=== PATIENT | male | born 1950 | race Caucasian/White ===

== ENCOUNTER 2017-08-09 12:44 | Observation (INO) | payer MEDICARE, MEDICAID ==
[~2017-08-09] VITALS: Ht 185.4 cm; Wt 98.9 kg
[2017-08-09] VITALS (7 sets, daily range): BP systolic 114–179; BP diastolic 57–88; PULSE 66–82; TEMP 98.2–98.8
[2017-08-09] MEDS ORDERED: PRILOTC PO (12:57)
[2017-08-09] MEDS ORDERED: LOTENSIN 1010 MG/TAB PO (12:57)
[2017-08-09] MEDS ORDERED: ELIQUIS 5MG PO (12:57)
[2017-08-09] MEDS ORDERED: ZOCOR 40MG40 MG PO (12:58)
[2017-08-09] MEDS ORDERED: LOPRESSOR 550 MG/TAB PO (12:59)
[2017-08-09 13:05] LABS: BASO # 0.1 (0.0-0.2); BASO % 1.2 % (0.0-2.0); EOS # 0.1 (0.0-0.7); EOS % 1.5 % (0-4.0); GRAN # 4.2 (1.4-6.5); GRAN % 64.6 % (42.2-75.2); HEMATOCRIT 38.4 % (42.0-52.0); HEMOGLOBIN 13.1 g/dl (13.5-18.0); LYMPH # 1.5 (1.2-3.4); LYMPH % 23.6 % (20.0-51.0); MEAN CELL VOLUME 90 fl (80.0-100.0); MEAN CORPUSCULAR HEMOGLOBIN 31 pg (27.0-31.0); MEAN CORPUSCULAR HGB CONC 34 g/dl (33.0-37.0); MEAN PLATELET VOLUME 9.9 fl (7.4-10.4); MONO # 0.6 (0.1-0.6); MONO % 8.8 % (1.7-9.3); PLATELET COUNT 209 K/mm3 (130-400); RED BLOOD COUNT 4.25 M/mm3 (4.20-5.60); REDCELL DISTRIBUTION WIDTH-CV 12.6 % (11.5-14.5)
[2017-08-09 13:11] LABS: POTASSIUM 4.5 mmol/L (3.4-5.0)
[2017-08-09 13:14] LABS: ALANINE AMINOTRANSFERASE 32 U/L (21-72); ALKALINE PHOSPHATASE 137 U/L (50-136); ANION GAP 6 mmol/L (7-16); AST,SGOT 25 U/L (15-37); BILIRUBIN,TOTAL 0.5 mg/dL (0.0-1.0); BLOOD UREA NITROGEN 14 mg/dL (9-20); CALCIUM 11.7 mg/dL (8.4-10.2); CARBON DIOXIDE 24 mmol/L (22-30); CHLORIDE 109 mmol/L (98-107); CREATININE, serum 0.84 mg/dL (0.66-1.25); GLUCOSE 98 mg/dL (74-106); LIPASE 151 U/L (23-300); SODIUM 139 mmol/L (137-145); TOTAL PROTEIN 6.8 gm/dL (6.4-8.2)
[2017-08-09 13:27] LABS: TROPONIN-I < 0.012 ng/mL (0.000-0.034)
[2017-08-10] VITALS (12 sets, daily range): BP systolic 120–166; BP diastolic 55–90; PULSE 60–85; TEMP 98.1–98.8
[2017-08-10 07:16] LABS: CHOLESTEROL RISK RATIO 4.3
[2017-08-11] VITALS (12 sets, daily range): BP systolic 103–142; BP diastolic 45–93; PULSE 58–87; TEMP 97.8–98.4
[2017-08-11] MEDS ORDERED: NITROSTAT0.4 MG/TAB SL (15:26)
== END 2017-08-11 16:53 | disposition home or self-care (01) ==
LOC: COL.ER 12:44 → MEDICAL 14:15
PROVIDERS: Emergency Medicine; Physician Assistant
DX: R07.9 Chest pain, unspecified (principal); E78.5 Hyperlipidemia, unspecified; I10 Essential (primary) hypertension; I48.91 Unspecified atrial fibrillation; I08.3 Combined rheumatic disorders of mitral, aortic and tricuspid valves; Z79.01 Long term (current) use of anticoagulants; Z95.0 Presence of cardiac pacemaker; Z82.3 Family history of stroke
CPT/HCPCS: A9502; G0008; G0378; J0330; J0360; J1644; J2704; J2785; J7030

== ENCOUNTER 2017-08-15 06:25 | Day surgery (SDC) | payer MEDICARE, OTHER, MEDICAID ==
[2017-08-15] VITALS (9 sets, daily range): BP systolic 125–169; BP diastolic 81–105; PULSE 63–72; TEMP 98.2
[~2017-08-15] VITALS: Ht 185.4 cm; Wt 98.6 kg
[~2017-08-15 06:25] MED LIST: ELIQUIS 5MG PO; LOPRESSOR 550 MG/TAB PO; LOTENSIN 1010 MG/TAB PO; NITROSTAT0.4 MG/TAB SL; PRILOTC PO; ZOCOR 40MG40 MG PO
[2017-08-15 07:00] LABS: HEMATOCRIT 38.5 % (42.0-52.0); MEAN CELL VOLUME 91 fl (80.0-100.0); MEAN CORPUSCULAR HEMOGLOBIN 31 pg (27.0-31.0); MEAN CORPUSCULAR HGB CONC 34 g/dl (33.0-37.0); PLATELET COUNT 195 K/mm3 (130-400); RED BLOOD COUNT 4.25 M/mm3 (4.20-5.60); REDCELL DISTRIBUTION WIDTH-CV 12.6 % (11.5-14.5)
[2017-08-15 07:02] LABS: PROTHROMBIN TIME 11.7 SECONDS (9.7-12.8)
[2017-08-15 07:23] LABS: CALCIUM 10.8 mg/dL (8.4-10.2); CREATININE, serum 0.9 mg/dL (0.66-1.25); POTASSIUM 4.3 mmol/L (3.4-5.0)
[2017-08-15] MEDS ORDERED: TENORMIN 5050 MG/TAB PO (09:55)
[2017-08-15] MEDS ORDERED: ELIQUIS 5MG PO (09:56)
== END 2017-08-15 13:30 | disposition home or self-care (01) ==
LOC: COL.CAR 06:25
PROVIDERS: Internal Medicine Cardiovascular Disease
DX: I25.10 Atherosclerotic heart disease of native coronary artery without angina pectoris (principal); I11.0 Hypertensive heart disease with heart failure; I50.20 Unspecified systolic (congestive) heart failure; E66.9 Obesity, unspecified; K21.9 Gastro-esophageal reflux disease without esophagitis; I27.20 Pulmonary hypertension, unspecified; Z95.0 Presence of cardiac pacemaker; I49.5 Sick sinus syndrome; Z79.01 Long term (current) use of anticoagulants; I48.1 Persistent atrial fibrillation; Z82.3 Family history of stroke
CPT/HCPCS: J1644; J2250; J3010; Q9967

== ENCOUNTER 2018-04-10 11:27 | Inpatient (IN) | payer MEDICARE, OTHER, MEDICAID ==
[~2018-04-10] VITALS: Ht 185.4 cm; Wt 89.1 kg
[~2018-04-10 11:27] MED LIST changes: +TENORMIN 5050 MG/TAB PO
[2018-04-11] MEDS ORDERED: ABSORBASE TOP (10:28)
[2018-04-11] MEDS ORDERED: NORVASC 5MG5 MG/TAB PO (10:29)
[2018-04-11] MEDS ORDERED: ASPIRIN 81M81 MG/TA2 PO (10:31)
[2018-04-11] MEDS ORDERED: LIPITOR20 MG PO (10:32)
[2018-04-11] MEDS ORDERED: COLACE 100100 MG/CAP PO (10:34)
[2018-04-11] MEDS ORDERED: SENSIPAR30 MG PO (10:34)
[2018-04-11] MEDS ORDERED: LEXAPRO20 MG PO (10:36)
[2018-04-11] MEDS ORDERED: PEPCID 20MG TAB20 MG PO (10:47)
[2018-04-11] MEDS ORDERED: LOPID 600M600 MG/TAB PO (10:48)
[2018-04-11] MEDS ORDERED: HEPARIN SOD5000 U/ML SQ (10:49)
[2018-04-11] MEDS ORDERED: PROBIOTIC GOLD1 EACH PO (10:58)
[2018-04-11] MEDS ORDERED: ATIVAN 0.50.5 MG/TAB PO (11:19)
[2018-04-11] MEDS ORDERED: MELAT3MGTAB (11:20)
[2018-04-11] MEDS ORDERED: REGLAN 5MG T5 MG/TAB PO (11:20)
[2018-04-11 16:20] VITALS: BP 137/91; PULSE 76; TEMP 97.9
[2018-04-11 17:39] VITALS: BP 123/64; PULSE 92; TEMP 98.1
[2018-04-12 05:21] VITALS: BP 128/85; PULSE 69; TEMP 98.6
[2018-04-12 07:46] LABS: BASO # 0.1 (0.0-0.2); BASO % 0.7 % (0.0-2.0); EOS # 0.1 (0.0-0.7); EOS % 1.5 % (0-4.0); GRAN % 70.1 % (42.2-75.2); LYMPH # 1.3 (1.2-3.4); LYMPH % 14.8 % (20.0-51.0); MEAN CELL VOLUME 88 fl (80.0-100.0); MEAN CORPUSCULAR HGB CONC 31 g/dl (33.0-37.0); MEAN PLATELET VOLUME 11.3 fl (7.4-10.4); MONO # 1.1 (0.1-0.6); MONO % 12.3 % (1.7-9.3); PLATELET COUNT 202 K/mm3 (130-400); RED BLOOD COUNT 3.51 M/mm3 (4.20-5.60); REDCELL DISTRIBUTION WIDTH-CV 15.8 % (11.5-14.5)
[2018-04-12 07:47] LABS: HEMATOCRIT 30.9 % (42.0-52.0); HEMOGLOBIN 9.5 g/dl (13.5-18.0); MEAN CORPUSCULAR HEMOGLOBIN 27 pg (27.0-31.0)
[2018-04-12 07:54] LABS: ALBUMIN 3.6 gm/dL (3.5-5.0); BILIRUBIN,TOTAL 0.4 mg/dL (0.0-1.0); CALCIUM 11.9 mg/dL (8.4-10.2); CREATININE, serum 1.56 mg/dL (0.66-1.25); POTASSIUM 4.9 mmol/L (3.4-5.0); TOTAL PROTEIN 6.8 gm/dL (6.4-8.2)
[2018-04-12 17:42] VITALS: BP 127/62; PULSE 82; TEMP 97.5
[2018-04-13 02:55] VITALS: BP 135/84; PULSE 79; TEMP 98.2
[2018-04-13 17:56] VITALS: BP 110/75; PULSE 76; TEMP 98.1
[2018-04-14 03:58] VITALS: BP 133/78; PULSE 73; TEMP 97.8
[2018-04-14 10:38] LABS: BASO # 0.1 (0.0-0.2); BASO % 1.4 % (0.0-2.0); EOS # 0.2 (0.0-0.7); EOS % 3.2 % (0-4.0); GRAN # 3.1 (1.4-6.5); GRAN % 62.6 % (42.2-75.2); LYMPH # 0.9 (1.2-3.4); LYMPH % 18.6 % (20.0-51.0); MEAN CELL VOLUME 86 fl (80.0-100.0); MEAN CORPUSCULAR HGB CONC 32 g/dl (33.0-37.0); MEAN PLATELET VOLUME 10.8 fl (7.4-10.4); MONO # 0.7 (0.1-0.6); MONO % 13.8 % (1.7-9.3); PLATELET COUNT 198 K/mm3 (130-400); RED BLOOD COUNT 3.17 M/mm3 (4.20-5.60); REDCELL DISTRIBUTION WIDTH-CV 15.9 % (11.5-14.5)
[2018-04-14 10:40] LABS: HEMATOCRIT 27.1 % (42.0-52.0); HEMOGLOBIN 8.7 g/dl (13.5-18.0); MEAN CORPUSCULAR HEMOGLOBIN 27 pg (27.0-31.0)
[2018-04-14 10:51] LABS: C-REACTIVE PROTEIN 4.9 mg/dL (0.0-0.9); CALCIUM 10.7 mg/dL (8.4-10.2); CREATININE, serum 1.45 mg/dL (0.66-1.25); MAGNESIUM 1.8 mg/dL (1.6-2.3); POTASSIUM 5.1 mmol/L (3.4-5.0)
[2018-04-14 17:01] VITALS: BP 146/82; PULSE 72; TEMP 97.7
[2018-04-15 04:35] VITALS: BP 132/77; PULSE 73; TEMP 98.2
[2018-04-15 18:03] VITALS: BP 144/82; PULSE 74; TEMP 98.6
[2018-04-16 05:02] VITALS: BP 153/90; PULSE 73; TEMP 98.3
[2018-04-16 17:40] VITALS: BP 140/80; PULSE 74; TEMP 97.8
[2018-04-17 05:33] VITALS: BP 149/85; PULSE 67; TEMP 98.3
[2018-04-17 08:03] LABS: MEAN CELL VOLUME 88 fl (80.0-100.0); MEAN CORPUSCULAR HGB CONC 31 g/dl (33.0-37.0); MEAN PLATELET VOLUME 10.6 fl (7.4-10.4); PLATELET COUNT 213 K/mm3 (130-400); RED BLOOD COUNT 3.14 M/mm3 (4.20-5.60); REDCELL DISTRIBUTION WIDTH-CV 15.6 % (11.5-14.5)
[2018-04-17 08:05] LABS: HEMATOCRIT 27.5 % (42.0-52.0); HEMOGLOBIN 8.5 g/dl (13.5-18.0); MEAN CORPUSCULAR HEMOGLOBIN 27 pg (27.0-31.0)
[2018-04-17 08:14] LABS: CALCIUM 11.1 mg/dL (8.4-10.2); CREATININE, serum 1.23 mg/dL (0.66-1.25); MAGNESIUM 1.8 mg/dL (1.6-2.3); POTASSIUM 5.1 mmol/L (3.4-5.0)
[2018-04-17 08:41] LABS: BASOPHIL 4 % (0-2); EOSINOPHIL 4 % (0-4); LYMPHOCYTE 29 % (20.0-51.0); NEUTROPHILS 61 % (42.0-75.2); PLATELET ESTIMATE NORMAL (NORMAL)
[2018-04-17 08:42] LABS: HYPOCHROMIA 1+
[2018-04-17 18:55] VITALS: BP 140/85; PULSE 72; TEMP 98
[2018-04-18 06:24] VITALS: BP 147/84; PULSE 65; TEMP 97.6
[2018-04-18 18:09] VITALS: BP 135/79; PULSE 79; TEMP 97.6
[2018-04-19 03:00] VITALS: BP 135/91; BP 142/51; PULSE 67; PULSE 86; TEMP 97.5; TEMP 97.9
[2018-04-19 07:44] LABS: BASO # 0.1 (0.0-0.2); BASO % 2.3 % (0.0-2.0); EOS # 0.3 (0.0-0.7); EOS % 6.7 % (0-4.0); GRAN # 1.8 (1.4-6.5); GRAN % 46.5 % (42.2-75.2); LYMPH # 1.3 (1.2-3.4); LYMPH % 33.2 % (20.0-51.0); MEAN CELL VOLUME 88 fl (80.0-100.0); MEAN CORPUSCULAR HGB CONC 31 g/dl (33.0-37.0); MEAN PLATELET VOLUME 9.9 fl (7.4-10.4); MONO # 0.4 (0.1-0.6); MONO % 10.8 % (1.7-9.3); PLATELET COUNT 207 K/mm3 (130-400); RED BLOOD COUNT 3.44 M/mm3 (4.20-5.60); REDCELL DISTRIBUTION WIDTH-CV 15.5 % (11.5-14.5)
[2018-04-19 07:45] LABS: HEMATOCRIT 30.1 % (42.0-52.0); HEMOGLOBIN 9.2 g/dl (13.5-18.0); MEAN CORPUSCULAR HEMOGLOBIN 27 pg (27.0-31.0)
[2018-04-19 07:56] LABS: ALBUMIN 3.6 gm/dL (3.5-5.0); BILIRUBIN,TOTAL 0.2 mg/dL (0.0-1.0); C-REACTIVE PROTEIN 0.9 mg/dL (0.0-0.9); CALCIUM 11.3 mg/dL (8.4-10.2); CREATININE, serum 1.19 mg/dL (0.66-1.25); MAGNESIUM 1.7 mg/dL (1.6-2.3); POTASSIUM 4.9 mmol/L (3.4-5.0); TOTAL PROTEIN 6.6 gm/dL (6.4-8.2)
[2018-04-19 17:53] VITALS: BP 121/74; PULSE 80; TEMP 97.5
[2018-04-20 04:35] VITALS: BP 136/88; PULSE 70; TEMP 98
[2018-04-20 18:03] VITALS: BP 131/64; PULSE 88; TEMP 97.7
[2018-04-21 03:41] VITALS: BP 128/78; PULSE 68; TEMP 98.2
[2018-04-21 17:45] VITALS: BP 138/82; PULSE 88; TEMP 97.3
[2018-04-22 04:22] VITALS: BP 152/91; PULSE 70; TEMP 98.6
[2018-04-22 15:09] VITALS: BP 122/73; PULSE 71; TEMP 98.4
[2018-04-23 04:52] VITALS: BP 140/70; PULSE 67; TEMP 98.6
[2018-04-23 15:23] VITALS: BP 126/77; PULSE 74; TEMP 98.2
[2018-04-24 05:56] VITALS: BP 135/81; PULSE 66; TEMP 98
[2018-04-24 06:03] LABS: CALCIUM 10.8 mg/dL (8.4-10.2); CREATININE, serum 1.08 mg/dL (0.66-1.25); MAGNESIUM 1.7 mg/dL (1.6-2.3)
[2018-04-24 18:50] VITALS: BP 124/81; PULSE 81; TEMP 97.6
[2018-04-25 06:59] VITALS: BP 152/95; PULSE 69; TEMP 98.6
[2018-04-25 17:21] VITALS: BP 116/69; PULSE 76; TEMP 98.5
[2018-04-26 04:29] VITALS: BP 134/86; PULSE 73; TEMP 97.9
[2018-04-26 06:18] LABS: BASO # 0.1 (0.0-0.2); BASO % 2.1 % (0.0-2.0); EOS # 0.2 (0.0-0.7); EOS % 4.9 % (0-4.0); GRAN # 2.1 (1.4-6.5); GRAN % 48.1 % (42.2-75.2); LYMPH # 1.4 (1.2-3.4); LYMPH % 32.9 % (20.0-51.0); MEAN CELL VOLUME 87 fl (80.0-100.0); MEAN CORPUSCULAR HGB CONC 31 g/dl (33.0-37.0); MEAN PLATELET VOLUME 10.2 fl (7.4-10.4); MONO # 0.5 (0.1-0.6); MONO % 11.5 % (1.7-9.3); PLATELET COUNT 178 K/mm3 (130-400); RED BLOOD COUNT 3.45 M/mm3 (4.20-5.60); REDCELL DISTRIBUTION WIDTH-CV 15.9 % (11.5-14.5)
[2018-04-26 06:23] LABS: ALBUMIN 3.5 gm/dL (3.5-5.0); BILIRUBIN,TOTAL 0.3 mg/dL (0.0-1.0); CALCIUM 11.2 mg/dL (8.4-10.2); CREATININE, serum 1.21 mg/dL (0.66-1.25); POTASSIUM 5.2 mmol/L (3.4-5.0); TOTAL PROTEIN 6.5 gm/dL (6.4-8.2)
[2018-04-26 06:24] LABS: HEMATOCRIT 29.9 % (42.0-52.0); HEMOGLOBIN 9.2 g/dl (13.5-18.0); MEAN CORPUSCULAR HEMOGLOBIN 27 pg (27.0-31.0)
[2018-04-26 18:10] VITALS: BP 119/71; PULSE 85; TEMP 98.1
[2018-04-27 03:15] VITALS: BP 144/87; PULSE 69; TEMP 97.5
[2018-04-27 16:16] VITALS: BP 115/74; PULSE 72; TEMP 98.3
[2018-04-28 03:52] VITALS: BP 163/89; PULSE 70; TEMP 98.2
[2018-04-28 16:31] VITALS: BP 120/78; PULSE 81; TEMP 98.6
[2018-04-29 05:05] VITALS: BP 141/89; PULSE 63; TEMP 97.6
[2018-04-29 16:10] VITALS: BP 114/71; PULSE 68; TEMP 97.7
[2018-04-30 04:14] VITALS: BP 103/69; PULSE 61; TEMP 98.5
[2018-04-30 17:01] VITALS: BP 112/77; PULSE 64; TEMP 98.1
[2018-05-01 06:30] VITALS: BP 115/69; PULSE 64; TEMP 97.7
[2018-05-01 06:40] LABS: BASO # 0.1 (0.0-0.2); BASO % 1.8 % (0.0-2.0); EOS # 0.2 (0.0-0.7); EOS % 4.4 % (0-4.0); GRAN # 2.5 (1.4-6.5); GRAN % 55.1 % (42.2-75.2); LYMPH # 1.2 (1.2-3.4); LYMPH % 26.9 % (20.0-51.0); MEAN CELL VOLUME 88 fl (80.0-100.0); MEAN CORPUSCULAR HGB CONC 31 g/dl (33.0-37.0); MEAN PLATELET VOLUME 10.9 fl (7.4-10.4); MONO # 0.5 (0.1-0.6); MONO % 11.1 % (1.7-9.3); PLATELET COUNT 159 K/mm3 (130-400); RED BLOOD COUNT 3.23 M/mm3 (4.20-5.60); REDCELL DISTRIBUTION WIDTH-CV 15.9 % (11.5-14.5)
[2018-05-01 06:43] LABS: HEMATOCRIT 28.3 % (42.0-52.0); HEMOGLOBIN 8.9 g/dl (13.5-18.0); MEAN CORPUSCULAR HEMOGLOBIN 28 pg (27.0-31.0)
[2018-05-01 06:55] LABS: CALCIUM 10.9 mg/dL (8.4-10.2); CREATININE, serum 1.13 mg/dL (0.66-1.25); MAGNESIUM 1.9 mg/dL (1.6-2.3); POTASSIUM 5.1 mmol/L (3.4-5.0)
[2018-05-01 17:49] VITALS: BP 132/65; PULSE 87; TEMP 97.8
[2018-05-02 06:23] VITALS: BP 113/76; PULSE 63; TEMP 97.6
[2018-05-02 18:00] VITALS: BP 103/67; PULSE 70; TEMP 98.1
[2018-05-03 05:46] VITALS: BP 113/74; PULSE 62; TEMP 98.1
[2018-05-03 06:31] LABS: BASO # 0.1 (0.0-0.2); BASO % 2.3 % (0.0-2.0); EOS # 0.2 (0.0-0.7); EOS % 5.7 % (0-4.0); GRAN # 1.6 (1.4-6.5); GRAN % 44.6 % (42.2-75.2); HEMATOCRIT 28.8 % (42.0-52.0); LYMPH # 1.2 (1.2-3.4); LYMPH % 35.6 % (20.0-51.0); MEAN CELL VOLUME 88 fl (80.0-100.0); MEAN CORPUSCULAR HEMOGLOBIN 27 pg (27.0-31.0); MEAN CORPUSCULAR HGB CONC 31 g/dl (33.0-37.0); MEAN PLATELET VOLUME 10.4 fl (7.4-10.4); MONO # 0.4 (0.1-0.6); MONO % 11.2 % (1.7-9.3); PLATELET COUNT 159 K/mm3 (130-400); RED BLOOD COUNT 3.29 M/mm3 (4.20-5.60); REDCELL DISTRIBUTION WIDTH-CV 16.4 % (11.5-14.5)
[2018-05-03 06:44] LABS: ALBUMIN 3.6 gm/dL (3.5-5.0); BILIRUBIN,TOTAL 0.2 mg/dL (0.0-1.0); CALCIUM 11.8 mg/dL (8.4-10.2); CREATININE, serum 1.01 mg/dL (0.66-1.25); POTASSIUM 5.2 mmol/L (3.4-5.0); TOTAL PROTEIN 6.5 gm/dL (6.4-8.2)
[2018-05-03 17:12] VITALS: BP 109/68; PULSE 81; TEMP 98.8
[2018-05-04 03:55] VITALS: BP 125/79; PULSE 61; TEMP 97.7
[2018-05-04 16:19] VITALS: BP 134/75; PULSE 73; TEMP 97.9
[2018-05-05 03:48] VITALS: BP 122/82; PULSE 64; TEMP 98.5
[2018-05-05] MEDS ORDERED: TYLENOL 325MG325 MG PO (14:33)
[2018-05-05] MEDS ORDERED: COLACE 100100 MG/CAP PO (14:35)
[2018-05-05] MEDS ORDERED: DULCOLAX S10 MG/SUPP RC (14:35)
[2018-05-05] MEDS ORDERED: VITAMINC500CH PO (14:36)
[2018-05-05] MEDS ORDERED: FERROUSAL325 MG PO (14:37)
[2018-05-05 14:51] VITALS: BP 105/69; PULSE 77; TEMP 97.6
== END 2018-05-05 15:20 | DRG 91 ==
LOC: IMCU 04-30 16:18
PROVIDERS: Internal Medicine
DX: G72.81 Critical illness myopathy (principal); I50.23 Acute on chronic systolic (congestive) heart failure; N17.9 Acute kidney failure, unspecified; E44.0 Moderate protein-calorie malnutrition; R13.10 Dysphagia, unspecified; I48.0 Paroxysmal atrial fibrillation; I11.0 Hypertensive heart disease with heart failure; I25.10 Atherosclerotic heart disease of native coronary artery without angina pectoris; Z95.2 Presence of prosthetic heart valve; Z95.5 Presence of coronary angioplasty implant and graft; Z79.01 Long term (current) use of anticoagulants; I27.20 Pulmonary hypertension, unspecified; M79.671 Pain in right foot; E78.5 Hyperlipidemia, unspecified; D64.9 Anemia, unspecified; Z68.26 Body mass index [BMI] 26.0-26.9, adult; E21.3 Hyperparathyroidism, unspecified; E83.52 Hypercalcemia
CPT/HCPCS: 99222-AI; 99232-AI; 99233-AI; 99239; J1644; J1650; J1815; J2405; J3370; J7030; J7050

== ENCOUNTER → 2018-05-08 | Outpatient (REF) ==
[~2018-05-08] MED LIST changes: +ABSORBASE TOP; +ASPIRIN 81M81 MG/TA2 PO; +ATIVAN 0.50.5 MG/TAB PO; +COLACE 100100 MG/CAP PO; +DULCOLAX S10 MG/SUPP RC; +FERROUSAL325 MG PO; +HEPARIN SOD5000 U/ML SQ; +LEXAPRO20 MG PO; +LIPITOR20 MG PO; +LOPID 600M600 MG/TAB PO; +MELAT3MGTAB; +NORVASC 5MG5 MG/TAB PO; +PEPCID 20MG TAB20 MG PO; +PROBIOTIC GOLD1 EACH PO; +REGLAN 5MG T5 MG/TAB PO; +SENSIPAR30 MG PO; +TYLENOL 325MG325 MG PO; +VITAMINC500CH PO
[2018-05-08 10:09] LABS: BASO # 0.1 (0.0-0.2); BASO % 2.2 % (0.0-2.0); EOS # 0.3 (0.0-0.7); EOS % 6.2 % (0-4.0); GRAN # 1.9 (1.4-6.5); GRAN % 47.1 % (42.2-75.2); LYMPH # 1.3 (1.2-3.4); LYMPH % 32.8 % (20.0-51.0); MEAN CELL VOLUME 88 fl (80.0-100.0); MEAN CORPUSCULAR HEMOGLOBIN 28 pg (27.0-31.0); MEAN CORPUSCULAR HGB CONC 32 g/dl (33.0-37.0); MEAN PLATELET VOLUME 10.4 fl (7.4-10.4); MONO # 0.5 (0.1-0.6); MONO % 11.2 % (1.7-9.3); PLATELET COUNT 200 K/mm3 (130-400); RED BLOOD COUNT 3.61 M/mm3 (4.20-5.60); REDCELL DISTRIBUTION WIDTH-CV 16.5 % (11.5-14.5)
[2018-05-08 10:10] LABS: HEMATOCRIT 31.6 % (42.0-52.0)
[2018-05-08 10:21] LABS: CALCIUM 11.5 mg/dL (8.4-10.2); CREATININE, serum 1.14 mg/dL (0.66-1.25); MAGNESIUM 1.8 mg/dL (1.6-2.3); POTASSIUM 5.5 mmol/L (3.4-5.0)
== END ==
LOC: ZLAB.STJ 10:02
PROVIDERS: Internal Medicine
DX: E61.2 Magnesium deficiency (principal); R68.89 Other general symptoms and signs; R79.89 Other specified abnormal findings of blood chemistry

== ENCOUNTER → 2018-05-18 | Outpatient (REF) ==
[2018-05-18 10:44] LABS: BASO # 0.1 (0.0-0.2); BASO % 1.7 % (0.0-2.0); EOS # 0.2 (0.0-0.7); EOS % 2.9 % (0-4.0); GRAN # 4.4 (1.4-6.5); GRAN % 66.2 % (42.2-75.2); HEMOGLOBIN 10.4 g/dl (13.5-18.0); LYMPH # 1.3 (1.2-3.4); LYMPH % 19.6 % (20.0-51.0); MEAN CELL VOLUME 89 fl (80.0-100.0); MEAN CORPUSCULAR HEMOGLOBIN 28 pg (27.0-31.0); MEAN CORPUSCULAR HGB CONC 31 g/dl (33.0-37.0); MEAN PLATELET VOLUME 10.8 fl (7.4-10.4); MONO # 0.6 (0.1-0.6); MONO % 9.1 % (1.7-9.3); PLATELET COUNT 215 K/mm3 (130-400); RED BLOOD COUNT 3.72 M/mm3 (4.20-5.60); REDCELL DISTRIBUTION WIDTH-CV 17.2 % (11.5-14.5)
[2018-05-18 10:55] LABS: ALBUMIN 3.8 gm/dL (3.5-5.0); BILIRUBIN,TOTAL 0.2 mg/dL (0.0-1.0); CALCIUM 11.8 mg/dL (8.4-10.2); CREATININE, serum 1.07 mg/dL (0.66-1.25); TOTAL PROTEIN 6.5 gm/dL (6.4-8.2)
[2018-05-18 11:03] LABS: HEMATOCRIT 33.2 % (42.0-52.0)
== END ==
LOC: ZLAB.STJ 10:37
PROVIDERS: Internal Medicine
DX: R79.89 Other specified abnormal findings of blood chemistry (principal)

== ENCOUNTER → 2018-06-01 | Outpatient (CLI) | payer MEDICARE, OTHER, MEDICAID ==
[2018-06-01 12:01] LABS: CALCIUM 11.6 mg/dL (8.4-10.2); CREATININE, serum 0.95 mg/dL (0.66-1.25); POTASSIUM 5.4 mmol/L (3.4-5.0)
== END ==
LOC: ZLAB.STJ 11:51
PROVIDERS: Internal Medicine
DX: N17.9 Acute kidney failure, unspecified (principal)

== ENCOUNTER → 2018-06-05 | Outpatient (CLI) | payer MEDICARE, OTHER, MEDICAID ==
[2018-06-05 10:16] LABS: CALCIUM 11.7 mg/dL (8.4-10.2); CREATININE, serum 0.92 mg/dL (0.66-1.25); POTASSIUM 5.2 mmol/L (3.4-5.0)
== END ==
LOC: ZLAB.STJ 09:21 → ZCOL.LAB 09:21
PROVIDERS: Internal Medicine
DX: N17.9 Acute kidney failure, unspecified (principal)

== ENCOUNTER → 2018-06-15 | Outpatient (CLI) | payer MEDICARE, OTHER, MEDICAID ==
[2018-06-15 13:44] LABS: BASO # 0.1 (0.0-0.2); BASO % 1.8 % (0.0-2.0); EOS # 0.2 (0.0-0.7); GRAN # 2.5 (1.4-6.5); GRAN % 50.9 % (42.2-75.2); HEMOGLOBIN 10.5 g/dl (13.5-18.0); LYMPH # 1.6 (1.2-3.4); LYMPH % 32.5 % (20.0-51.0); MEAN CELL VOLUME 89 fl (80.0-100.0); MEAN CORPUSCULAR HEMOGLOBIN 28 pg (27.0-31.0); MEAN CORPUSCULAR HGB CONC 32 g/dl (33.0-37.0); MEAN PLATELET VOLUME 11.9 fl (7.4-10.4); MONO # 0.5 (0.1-0.6); MONO % 10.2 % (1.7-9.3); PLATELET COUNT 186 K/mm3 (130-400); RED BLOOD COUNT 3.73 M/mm3 (4.20-5.60); REDCELL DISTRIBUTION WIDTH-CV 16.2 % (11.5-14.5)
[2018-06-15 13:46] LABS: HEMATOCRIT 33.3 % (42.0-52.0)
[2018-06-15 13:57] LABS: CALCIUM 12.3 mg/dL (8.4-10.2); CREATININE, serum 1.11 mg/dL (0.66-1.25); POTASSIUM 5.4 mmol/L (3.4-5.0)
== END ==
LOC: ZLAB.STJ 11:37
PROVIDERS: Internal Medicine
DX: R79.89 Other specified abnormal findings of blood chemistry (principal)

== ENCOUNTER → 2018-06-23 | Outpatient (CLI) | payer MEDICARE, OTHER, MEDICAID ==
[2018-06-23 11:05] LABS: CREATININE, serum 1.05 mg/dL (0.66-1.25); POTASSIUM 5.1 mmol/L (3.4-5.0)
== END ==
LOC: ZLAB.STJ 10:29
PROVIDERS: Internal Medicine
DX: R79.89 Other specified abnormal findings of blood chemistry (principal)

== ENCOUNTER → 2018-09-18 | Outpatient (CLI) | payer MEDICARE, OTHER, MEDICAID | LOC: ZLAB.STJ 09:33 | DX: D50.9 Iron deficiency anemia, unspecified (principal) ==

== ENCOUNTER → 2018-09-26 | Outpatient (CLI) | payer MEDICARE, OTHER, MEDICAID ==
[2018-09-26 11:35] LABS: ALBUMIN 3.7 gm/dL (3.5-5.0); BILIRUBIN,TOTAL 0.3 mg/dL (0.0-1.0); CALCIUM 10.8 mg/dL (8.4-10.2); CREATININE, serum 0.94 (0.66-1.25); POTASSIUM 4.8 mmol/L (3.4-5.0); TOTAL PROTEIN 6.5 gm/dL (6.4-8.2)
[2018-09-26 12:04] LABS: THYROID STIMULATING HORMONE 0.647 uIU/mL (0.465-4.680)
[2018-09-26 23:37] LABS: PTH,INTACT 532.6 pg/mL (6.6-88.9)
== END ==
LOC: ZLAB.STJ 09:47
PROVIDERS: Internal Medicine
DX: E55.9 Vitamin D deficiency, unspecified (principal); R94.6 Abnormal results of thyroid function studies; R79.89 Other specified abnormal findings of blood chemistry; E21.3 Hyperparathyroidism, unspecified

== ENCOUNTER → 2018-10-17 | Outpatient (CLI) | payer MEDICARE, OTHER, MEDICAID ==
[2018-10-17 10:17] LABS: ALBUMIN 3.6 gm/dL (3.5-5.0); BILIRUBIN,TOTAL 0.3 mg/dL (0.0-1.0); CREATININE, serum 0.87 (0.66-1.25); POTASSIUM 5.2 mmol/L (3.4-5.0); TOTAL PROTEIN 6.6 gm/dL (6.4-8.2)
== END ==
LOC: ZCOL.LAB 09:34
PROVIDERS: Nurse Practitioner Family
DX: E21.3 Hyperparathyroidism, unspecified (principal)

== ENCOUNTER → 2018-12-26 | Outpatient (REF) ==
[2018-12-26 23:31] LABS: PTH,INTACT 527.8 pg/mL (6.6-88.9)
== END ==
LOC: ZLAB.STJ 10:23
PROVIDERS: Internal Medicine
DX: Z01.89 Encounter for other specified special examinations (principal)

== ENCOUNTER → 2019-01-05 | Outpatient (CLI) | payer MEDICARE, OTHER, MEDICAID ==
[2019-01-05 20:18] LABS: CALCIUM 11.3 mg/dL (8.4-10.2); CREATININE, serum 0.94 (0.66-1.25); POTASSIUM 5.2 mmol/L (3.4-5.0)
== END ==
LOC: ZLAB.STJ 18:44
PROVIDERS: Internal Medicine
DX: R79.89 Other specified abnormal findings of blood chemistry (principal)

== ENCOUNTER → 2019-01-11 | Outpatient (CLI) | payer MEDICARE, OTHER, MEDICAID | LOC: ZLAB.STJ 10:14 | DX: E87.5 Hyperkalemia (principal) ==

== ENCOUNTER → 2019-04-06 | Outpatient (CLI) | payer MEDICARE, OTHER ==
[2019-04-06 16:11] LABS: CALCIUM 10.6 mg/dL (8.4-10.2); CREATININE, serum 1.04 (0.66-1.25)
[2019-04-06 16:53] LABS: POTASSIUM 5.8 mmol/L (3.4-5.0)
== END ==
LOC: ZLAB.STJ 14:29
PROVIDERS: Internal Medicine
DX: R79.89 Other specified abnormal findings of blood chemistry (principal)

== ENCOUNTER → 2019-04-10 | Outpatient (CLI) | payer MEDICARE, OTHER ==
[2019-04-10 11:20] LABS: CALCIUM 10.4 mg/dL (8.4-10.2); CREATININE, serum 0.99 (0.66-1.25); POTASSIUM 4.5 mmol/L (3.4-5.0)
== END ==
LOC: ZCOL.LAB 10:48
PROVIDERS: Nurse Practitioner
DX: E87.5 Hyperkalemia (principal)

== ENCOUNTER → 2019-04-18 | Outpatient (CLI) | payer MEDICARE, OTHER | LOC: COL.RAD 13:33 | DX: K31.89 Other diseases of stomach and duodenum (principal); J98.6 Disorders of diaphragm ==

== ENCOUNTER 2019-05-16 18:31 | Inpatient (IN) | payer MEDICARE, OTHER ==
[~2019-05-16] VITALS: Ht 185.4 cm; Wt 104.7 kg
[2019-05-16 19:14] LABS: BASO # 0.1 (0.0-0.2); EOS # 0.2 (0.0-0.7); EOS % 2.3 % (0-4.0); GRAN # 6.1 (1.4-6.5); GRAN % 70.3 % (42.2-75.2); HEMOGLOBIN 11.2 g/dl (13.5-18.0); LYMPH # 1.2 (1.2-3.4); LYMPH % 13.4 % (20.0-51.0); MEAN CELL VOLUME 101 fl (80.0-100.0); MEAN CORPUSCULAR HEMOGLOBIN 31 pg (27.0-31.0); MEAN CORPUSCULAR HGB CONC 31 g/dl (33.0-37.0); MEAN PLATELET VOLUME 10.4 fl (7.4-10.4); MONO # 1.1 (0.1-0.6); MONO % 12.2 % (1.7-9.3); PLATELET COUNT 210 K/mm3 (130-400); RED BLOOD COUNT 3.63 M/mm3 (4.20-5.60); REDCELL DISTRIBUTION WIDTH-CV 13.4 % (11.5-14.5)
[2019-05-16 19:22] LABS: ALBUMIN 4.2 gm/dL (3.5-5.0); BILIRUBIN,TOTAL 0.2 mg/dL (0.0-1.0); CREATININE, serum 1.13 (0.66-1.25); TOTAL PROTEIN 7.5 gm/dL (6.4-8.2)
[2019-05-16 19:30] LABS: TROPONIN-I 0.016 ng/mL (0.000-0.035)
[2019-05-16 19:30] LABS: ARTERIAL BLD GAS O2 SATURATION 86.3 % (92-100); ARTERIAL BLD GAS TCO2 CT 26.1; ARTERIAL BLOOD GAS BASE EXCESS -3.2 (-2-2); ARTERIAL BLOOD GAS HCO3 24.4 meq/L (22-26); ARTERIAL BLOOD GAS PCO2 55.8 mmHg (35-45); ARTERIAL BLOOD GAS PO2 54.3 mmHg (80-100); ARTERIAL BLOOD GAS pH 7.26 (7.35-7.45)
[2019-05-16 19:38] LABS: HEMATOCRIT 36.6 % (42.0-52.0)
--- NOTE | 2019-05-16 22:20 | NUR ---
Patient brought to room via cart by ER staff. On O2 at 3L/NC. Transfers from sttretcher to bed with standby assist. Breathing is labored. Abdomen distended and firm. Patient says that he is able to pass some gas, had bowel movement this a.m. Denies pain. Oriented to room.
[2019-05-16 22:31] VITALS: BP 181/90; PULSE 71; TEMP 98.6
[2019-05-16 23:14] LABS: COLLECTION METHOD CATHETER
[2019-05-16 23:21] LABS: PH 5 (5-8); SQUAMOUS EPITHELIAL None Seen /hpf; URINE APPEARANCE Clear; URINE BACTERIA None Seen /hpf; URINE BILIRUBIN Negative (NEGATIVE); URINE BLOOD Negative (NEGATIVE); URINE COLOR Yellow; URINE GLUCOSE Negative (NEGATIVE); URINE KETONE Negative (NEGATIVE); URINE LEUKOCYTE ESTERASE Negative (NEGATIVE); URINE NITRATE Negative (NEGATIVE); URINE PROTEIN(semi-quant) Negative (NEGATIVE); URINE RBC 0-2 /hpf; URINE UROBILINOGEN Negative (NEGATIVE)
[2019-05-16 23:42] VITALS: BP 156/88
[2019-05-16 23:59] VITALS: BP 154/86; PULSE 70
--- NOTE | 2019-05-17 01:00 | NUR ---
Lying in bed in supine position. Repositioned in bed. Denies pain. Linens changed due to patient incontinent of urine. Bipap on. Patient denies further needs.
[2019-05-17 03:17] VITALS: BP 140/93; PULSE 69; TEMP 98.1
--- NOTE | 2019-05-17 03:19 | NUR ---
Lying in bed with Bipap on. Denies pain. Abdomen soft and not as rounded as was on admission. Patient has large urinary incontinence in the bed. Linens changed. Patient cleaned up. Tolerates rolling in the bed with little difficulty. Denies further needs at this time.
[2019-05-17 06:03] LABS: ARTERIAL BLD GAS O2 SATURATION 96.2 % (92-100); ARTERIAL BLD GAS TCO2 CT 32.1; ARTERIAL BLOOD GAS BASE EXCESS 4.3 (-2-2); ARTERIAL BLOOD GAS HCO3 30.5 meq/L (22-26); ARTERIAL BLOOD GAS PO2 88.8 mmHg (80-100); ARTERIAL BLOOD GAS pH 7.38 (7.35-7.45)
[2019-05-17 07:30] LABS: BASO # 0.1 (0.0-0.2); BASO % 1.1 % (0.0-2.0); EOS # 0.2 (0.0-0.7); EOS % 2.2 % (0-4.0); GRAN # 5.4 (1.4-6.5); GRAN % 68.6 % (42.2-75.2); HEMATOCRIT 38.3 % (42.0-52.0); HEMOGLOBIN 11.7 g/dl (13.5-18.0); LYMPH # 1.3 (1.2-3.4); MEAN CELL VOLUME 99 fl (80.0-100.0); MEAN CORPUSCULAR HEMOGLOBIN 30 pg (27.0-31.0); MEAN CORPUSCULAR HGB CONC 31 g/dl (33.0-37.0); MEAN PLATELET VOLUME 10.8 fl (7.4-10.4); MONO # 0.9 (0.1-0.6); MONO % 11.2 % (1.7-9.3); PLATELET COUNT 214 K/mm3 (130-400); RED BLOOD COUNT 3.86 M/mm3 (4.20-5.60); REDCELL DISTRIBUTION WIDTH-CV 13.5 % (11.5-14.5)
[2019-05-17 07:43] LABS: CALCIUM 11.2 mg/dL (8.4-10.2); CREATININE, serum 1.05 (0.66-1.25); POTASSIUM 4.3 mmol/L (3.4-5.0)
[2019-05-17 09:00] VITALS: BP 144/84; PULSE 67; TEMP 97.5
--- NOTE | 2019-05-17 11:42 | NUR ---
Initial visit; greeted Anibal and offered God's blessings.
--- NOTE | 2019-05-17 11:49 | NUR ---
clarified QTi for Reglan administration. BETY Marshall& primary nurse has approved medication to be given. will continue to monitor patient.
[2019-05-17 13:02] VITALS: BP 134/84; PULSE 74; TEMP 98.4
--- NOTE | 2019-05-17 13:15 | NUR ---
Physical Anthropologist attended clinical rounds with the team. RENEA then contacted [place] at [facility] who confirmed that patient is a [facility] care resident at [facility]. RENEA met with patient who stated he would like to return to [facility] upon discharge. RENEA presented patient choice form to the patient who selected [facility] and provided signature. RENEA placed form in chart. Patient states he has a wheelchair, but no other DME. Patient's DPOA-HC is his brother, Lon (ph#[phone]). RENEA called Lon and left a voicemail. RENEA faxed referral to [facility]. SW to continue to follow.
--- NOTE | 2019-05-17 13:47 | NUR ---
Primary nurse was assisted with [id number] patient care by [employer] [facility] student Sri Lopez and [employer] instructor Bonny Hauser RN-.
--- NOTE | 2019-05-17 13:54 | NUR ---
patient is on bed sleeping at this time, call light and personal belongings in reach. bed rails upx2. reported off to BETY Marshall.
[2019-05-17 17:00] VITALS: BP 145/86; PULSE 75; TEMP 98.3
[2019-05-17 19:26] VITALS: BP 138/89; PULSE 71; TEMP 98.8
--- NOTE | 2019-05-17 20:00 | NUR ---
Assessment complete.Pt sleeping upon entry but arousable. Alert and oriented. Denies any pain or discomfort at this time. Medications administered as ordered. Denies SOB. On 3L O2 via NC. IV to RW intact with NS infusing at 75ml/hr. Tele monitor in place, leads checked. Needs met at this time. Call light within reach.
[2019-05-17 23:33] VITALS: BP 120/84; PULSE 67; TEMP 98.4
[2019-05-18 04:15] VITALS: BP 124/79; PULSE 70; TEMP 99
--- NOTE | 2019-05-18 05:30 | NUR ---
Pt uneventful during this shift. Slep through the night without complaints. Medications administered as ordered. Call light within reach.
--- NOTE | 2019-05-18 06:54 | NUR ---
Report given to BETY Kamara.
--- NOTE | 2019-05-18 07:00 | NUR ---
Pt continues to sleep soundly in bed.
[2019-05-18 07:20] VITALS: BP 125/79; PULSE 73; TEMP 98.4
[2019-05-18 07:29] LABS: BASO # 0.1 (0.0-0.2); BASO % 0.8 % (0.0-2.0); EOS # 0.1 (0.0-0.7); EOS % 1.5 % (0-4.0); GRAN # 6.9 (1.4-6.5); GRAN % 72.5 % (42.2-75.2); HEMATOCRIT 38.4 % (42.0-52.0); HEMOGLOBIN 11.9 g/dl (13.5-18.0); LYMPH # 1.3 (1.2-3.4); MEAN CELL VOLUME 100 fl (80.0-100.0); MEAN CORPUSCULAR HEMOGLOBIN 31 pg (27.0-31.0); MEAN CORPUSCULAR HGB CONC 31 g/dl (33.0-37.0); MEAN PLATELET VOLUME 10.2 fl (7.4-10.4); MONO % 10.6 % (1.7-9.3); PLATELET COUNT 226 K/mm3 (130-400); RED BLOOD COUNT 3.84 M/mm3 (4.20-5.60); REDCELL DISTRIBUTION WIDTH-CV 13.2 % (11.5-14.5)
[2019-05-18 07:37] LABS: CALCIUM 10.9 mg/dL (8.4-10.2); POTASSIUM 4.6 mmol/L (3.4-5.0)
--- NOTE | 2019-05-18 08:43 | NUR ---
Pt is awake and A/Ox4, sitting up in bed. He remains on 3L O2 per NC, resp. are even and unlabored. Pt denies shortness of breath. IVF are infusing into right wrist without complications. Pt denies any needs at this time. [facility] student, Sri, assisting with AM cares.
[2019-05-18] MEDS ORDERED: MIRALAX510G PO (09:23)
[2019-05-18] MEDS ORDERED: COLACE 100100 MG/CAP PO (09:23)
--- NOTE | 2019-05-18 10:18 | NUR ---
I agree with [facility] student's shift assessment.
[2019-05-18] MEDS ORDERED: PROAIR HFA0.09 MG/AC IH (10:44)
[2019-05-18 12:00] VITALS: BP 122/80; PULSE 72; TEMP 97.8
[2019-05-18 12:24] VITALS: BP 125/79; PULSE 73; TEMP 98.4
--- NOTE | 2019-05-18 13:34 | NUR ---
patient is in bed sleeping. fall precautions maintained. call light and personal belongingis within reach. reported off to BETY Kamara.
--- NOTE | 2019-05-18 13:35 | NUR ---
Report called to Trinidad at [facility]. Saline lock removed by Sri [facility].
--- NOTE | 2019-05-18 13:59 | NUR ---
Software Engineer Sales notified patient ready to discharge today. RENEA collaborated with Esa at [facility] and patient RNAnh to set up transportation for 1:30pm. RENEA notified patient and patient's brother, Lon of discharge and transportation arrangements. RENEA faxed discharge orders to [facility]. Patient will discharge to [facility] Statement Clerks Supervisor Care.
--- NOTE | 2019-05-18 14:06 | NUR ---
Primary nurse was assisted with [id number] patient care by [facility] student Sri Lopez and [facility] instructor Bonny Hauser RN-.
== END 2019-05-18 14:24 | DRG 388 ==
LOC: COL.ER 18:31 → MEDICAL 21:15
PROVIDERS: Emergency Medicine; Nurse Practitioner Family
DX: K56.7 Ileus, unspecified (principal); J96.01 Acute respiratory failure with hypoxia; I50.31 Acute diastolic (congestive) heart failure; J96.02 Acute respiratory failure with hypercapnia; E87.0 Hyperosmolality and hypernatremia; I11.0 Hypertensive heart disease with heart failure; D50.8 Other iron deficiency anemias; E86.0 Dehydration; J40 Bronchitis, not specified as acute or chronic; I25.10 Atherosclerotic heart disease of native coronary artery without angina pectoris; Z95.3 Presence of xenogenic heart valve; E66.01 Morbid (severe) obesity due to excess calories; Z88.6 Allergy status to analgesic agent
CPT/HCPCS: 99223-AI; 99232-AI; A9284; J1650; J1940; J7030; Q9967

== ENCOUNTER → 2019-07-06 | Outpatient (CLI) | payer MEDICARE, OTHER ==
[~2019-07-06] MED LIST changes: +MIRALAX510G PO; +PROAIR HFA0.09 MG/AC IH
[2019-07-06 10:57] LABS: CREATININE, serum 0.82 (0.66-1.25); POTASSIUM 5.3 mmol/L (3.4-5.0)
== END ==
LOC: ZLAB.STJ 09:15
PROVIDERS: Internal Medicine
DX: R79.89 Other specified abnormal findings of blood chemistry (principal)

== ENCOUNTER → 2019-07-07 | Outpatient (CLI) | payer MEDICARE, OTHER ==
[2019-07-07 12:51] LABS: COLLECTION METHOD CLEAN CATCH
[2019-07-07 13:17] LABS: MUCOUS Present /lpf; PH 5 (5-8); SQUAMOUS EPITHELIAL 0-2 /hpf; URINE APPEARANCE Clear; URINE BACTERIA None Seen /hpf; URINE BILIRUBIN Negative (NEGATIVE); URINE BLOOD Negative (NEGATIVE); URINE COLOR Yellow; URINE GLUCOSE Negative (NEGATIVE); URINE KETONE Negative (NEGATIVE); URINE LEUKOCYTE ESTERASE Negative (NEGATIVE); URINE NITRATE Negative (NEGATIVE); URINE PROTEIN(semi-quant) Negative (NEGATIVE); URINE RBC 0-2 /hpf; URINE UROBILINOGEN Negative (NEGATIVE)
== END ==
LOC: COL.LAB 11:22
PROVIDERS: Internal Medicine
DX: N39.0 Urinary tract infection, site not specified (principal)

== ENCOUNTER → 2019-07-10 | Outpatient (CLI) | payer MEDICARE, OTHER ==
[2019-07-10 10:07] LABS: CALCIUM 10.1 mg/dL (8.4-10.2); CREATININE, serum 0.77 (0.66-1.25)
== END ==
LOC: ZLAB.STJ 09:05
PROVIDERS: Internal Medicine
DX: R79.89 Other specified abnormal findings of blood chemistry (principal)

== ENCOUNTER 2019-07-18 11:33 | Inpatient (IN) | payer MEDICARE, OTHER, MEDICAID ==
[~2019-07-18] VITALS: Ht 185.4 cm; Wt 105.2 kg
[~2019-07-18 11:33] MED LIST changes: -MELAT3MGTAB; +MELATIN 3 MG-11 TAB PO
[2019-07-18 12:29] LABS: BASO # 0.1 (0.0-0.2); BASO % 1.2 % (0.0-2.0); EOS # 0.1 (0.0-0.7); EOS % 1.6 % (0-4.0); GRAN # 4.7 (1.4-6.5); HEMATOCRIT 38.4 % (42.0-52.0); HEMOGLOBIN 11.7 g/dl (13.5-18.0); LYMPH # 1.2 (1.2-3.4); LYMPH % 17.3 % (20.0-51.0); MEAN CELL VOLUME 96 fl (80.0-100.0); MEAN CORPUSCULAR HEMOGLOBIN 29 pg (27.0-31.0); MEAN CORPUSCULAR HGB CONC 31 g/dl (33.0-37.0); MEAN PLATELET VOLUME 10.8 fl (7.4-10.4); MONO # 0.6 (0.1-0.6); MONO % 9.3 % (1.7-9.3); PLATELET COUNT 192 K/mm3 (130-400); RED BLOOD COUNT 4.01 M/mm3 (4.20-5.60); REDCELL DISTRIBUTION WIDTH-CV 13.4 % (11.5-14.5)
[2019-07-18 12:33] LABS: ALANINE AMINOTRANSFERASE 26 U/L (21-72); ALBUMIN 4.1 gm/dL (3.5-5.0); ALKALINE PHOSPHATASE 124 U/L (50-136); ANION GAP 5 mmol/L (7-16); AST,SGOT 27 U/L (15-37); BILIRUBIN,TOTAL 0.4 mg/dL (0.0-1.0); BLOOD UREA NITROGEN 16 mg/dL (9-20); CALCIUM 9.9 mg/dL (8.4-10.2); CARBON DIOXIDE 29 mmol/L (22-30); CHLORIDE 106 mmol/L (98-107); CREATININE, serum 0.95 (0.66-1.25); GLUCOSE 97 mg/dL (74-106); POTASSIUM 5.4 mmol/L (3.4-5.0); SODIUM 140 mmol/L (137-145); TOTAL PROTEIN 6.9 gm/dL (6.4-8.2)
[2019-07-18 12:48] LABS: TROPONIN-I < 0.012 ng/mL (0.000-0.035)
[2019-07-18 18:06] VITALS: BP 145/91; PULSE 70; TEMP 99.2
--- NOTE | 2019-07-18 18:22 | NUR ---
Assessment completed, alert/oriented, vital signs stable, denies any chest pain or discomfort at this time, heart RRR/ Paced on tele, lungs CTA/ no resp. difficulty noted, patient was able to transfer from wheelchair to bed with some asssitance, he has no skin issues noted, updated meds/pharmacy/allergies reviwed, notfieid of his arrival, patient resting quietly and denies other needs at [facility]
[2019-07-18 22:07] VITALS: BP 138/90; PULSE 67; TEMP 98.1
[2019-07-18 23:29] VITALS: BP 136/84; PULSE 71; TEMP 98.3
[2019-07-19] VITALS (17 sets, daily range): BP systolic 109–150; BP diastolic 68–100; PULSE 65–83; TEMP 98.2–98.7
--- NOTE | 2019-07-19 01:07 | NUR ---
patient doing well tonight. denies pain. took scheduled medications without issue. tele paced. made npo at midnight per orders. IV fluids started to R AC at 75 ml/hr. linens changed bed soaked due to incontinence. patient teaching done regarding need for UA. encouraged patient to use urinal. no further needs at this time. will continue to monitor.
[2019-07-19 06:51] LABS: BASO # 0.1 (0.0-0.2); BASO % 1.7 % (0.0-2.0); EOS # 0.2 (0.0-0.7); EOS % 2.6 % (0-4.0); GRAN % 67.6 % (42.2-75.2); HEMATOCRIT 38.6 % (42.0-52.0); HEMOGLOBIN 11.9 g/dl (13.5-18.0); LYMPH # 1.1 (1.2-3.4); LYMPH % 19.4 % (20.0-51.0); MEAN CELL VOLUME 97 fl (80.0-100.0); MEAN CORPUSCULAR HEMOGLOBIN 30 pg (27.0-31.0); MEAN CORPUSCULAR HGB CONC 31 g/dl (33.0-37.0); MEAN PLATELET VOLUME 11.1 fl (7.4-10.4); MONO # 0.5 (0.1-0.6); MONO % 8.2 % (1.7-9.3); PLATELET COUNT 183 K/mm3 (130-400); REDCELL DISTRIBUTION WIDTH-CV 13.6 % (11.5-14.5)
[2019-07-19 07:03] LABS: CALCIUM 9.8 mg/dL (8.4-10.2); CREATININE, serum 0.84 (0.66-1.25); POTASSIUM 5.5 mmol/L (3.4-5.0)
--- NOTE | 2019-07-19 08:49 | NUR ---
Pt down for rogelio at this time. IVF stopped, pt incontinent, brief changed, new gown.
--- NOTE | 2019-07-19 11:30 | NUR ---
NURSE IN TO SEE PATIENT AND ASSESS HIM AFTER HIS STRESS TEST. ABLE TO TAKE MEDIATIONS WITH A SIP OF WATER. PATIENT IS LYING IN BED WITH NO DISTRESS OR COMPLAINTS. DENIES ANY DIZZINESS, SHORTNESS OF BREATH, NAUSEA, OR VOMITING. PATIENT IS INCONTINENT AT TIMES, CAN TELL YOU WHEN HIS BREIF NEEDS TO BE CHANGED. PATIENT IS WEARING 4 L OF O2 VIA NASAL CANNULA. LUNG SOUNDS ON THE LEFT ARE DIMINISHED AND CRACKS IN THE RLL. NO SKIN BREAKDOWN TO NOTE. PULSES EQUAL BILATERALLY. NO SWELLING/EDEMA, REDDNESS, OR TENDERNESS TO NOTE AT THIS TIME. CALL LIGHT WITHIN REACH. HE IS STILL NPO AT THIS TIME FOR HEART CATH LATER TODAY.
--- NOTE | 2019-07-19 11:51 | NUR ---
First visit from the long chain beamer. No needs right now.
--- NOTE | 2019-07-19 11:53 | NUR ---
RENEA met with the patient to discuss discharge plan. The patient resides at [facility] for long-term care. He states that he has a walker, cane, and is on two liters of oxygen. The patient's PCP is Dr. Katiana Gray. The patient's advanced directives are in EMR. His DPOA-HC is his brother, Lon Al (ph#[phone]). The patient requested that RENEA contact his brother to nofity him that he is here. RENEA contacted and informed the patient's brother, Lon, of his hospitalization. The patient reports that he plans to return back to [facility] upon discharge. RENEA presented and explained the Patient Choice Form to the patient. The patient verbalized understanding, signed, and he was provided a copy. RENEA contacted and faxed updates to Esa at [facility]. RENEA to continue to follow.
[2019-07-19 11:56] LABS: HEMATOCRIT 39.3 % (42.0-52.0); HEMOGLOBIN 12.1 g/dl (13.5-18.0); MEAN CELL VOLUME 96 fl (80.0-100.0); MEAN CORPUSCULAR HEMOGLOBIN 29 pg (27.0-31.0); MEAN CORPUSCULAR HGB CONC 31 g/dl (33.0-37.0); MEAN PLATELET VOLUME 10.8 fl (7.4-10.4); PLATELET COUNT 182 K/mm3 (130-400); RED BLOOD COUNT 4.11 M/mm3 (4.20-5.60); REDCELL DISTRIBUTION WIDTH-CV 13.7 % (11.5-14.5)
[2019-07-19 11:59] LABS: CALCIUM 9.9 mg/dL (8.4-10.2); CREATININE, serum 0.76 (0.66-1.25); POTASSIUM 5.3 mmol/L (3.4-5.0)
[2019-07-19 12:01] LABS: PROTHROMBIN TIME 12.1 SECONDS (9.7-12.8)
[2019-07-19 12:04] LABS: PARTIAL THROMBOPLASTIN TIME 29.3 SECONDS (26.0-37.0)
--- NOTE | 2019-07-19 13:16 | NUR ---
SEE MERGE FOR MEDICATION ADMINISTRATION TIMES AND INTRA AND POST SEDATION ASSESSMENTS.
--- NOTE | 2019-07-19 14:17 | NUR ---
bedside hand off report to latonya romero. pt is alert and oriented. pt is on 2L per nc. r groin site is c/d/i. pt has no concerns or questions at this time.
--- NOTE | 2019-07-19 14:30 | NUR ---
Pt back from heart cath procedure at this time. Pt drowsy but arousable by name. Pt A&O. Rt groin site w/ angiocele, gauze and tegaderm, site is CDI, soft to touch w/ no signs of hematoma. Pt denies pain at this time. VSS, post op checks in progress. Discussed flat time with patient who verbalized understanding.
--- NOTE | 2019-07-19 15:30 | NUR ---
Pt laying flat in bed, sleeping, arouses to name, denies pain at this time. Rt groin site is CDI, soft to touch, no signs of hematoma. VSS.
--- NOTE | 2019-07-19 17:30 | NUR ---
Pt in bed, sleeping, laying flat, one more hour of flat time. Pt denies pain, VSS. Site is CDI, soft to touch and no hematoma present.
--- NOTE | 2019-07-19 18:43 | NUR ---
Pt flat time over, site is CDI, soft to touch. Pt denies pain. Pt incontinent of urine, complete bed change and gown change completed. Pt HOB elevated, dinner arrived. Pt sitting in bed eating. No complaints at this time.
--- NOTE | 2019-07-19 19:40 | NUR ---
Received report from Rissa. Patient is awake, alert and oriented. He's currently sitting on bed. With INT on Right AC G20. On tele and O2 at 2lpm via NC. Right groin site is clean, dry and intact. Patient denies any pain.
[2019-07-20 01:16] VITALS: BP 107/68; PULSE 63; TEMP 98.1
[2019-07-20 05:58] VITALS: BP 117/79; PULSE 66; TEMP 97.9
[2019-07-20 07:53] VITALS: BP 133/82; PULSE 69; TEMP 98.8
--- NOTE | 2019-07-20 07:54 | NUR ---
Patient had an uneventful night. Denies any pain. Still with running IVF of 1/2 NS at 100ml/hr. Endorsed to [place].
--- NOTE | 2019-07-20 09:19 | NUR ---
The patient is to discharge today, 07/20, back to [facility] for a skilled stay. Transportation was scheduled for 1130, via [facility]. SW informed the patient, his RN, and the patient's brother (Lon). They were all in agreeance to the time. No additional needs at this time.
[2019-07-20 11:18] VITALS: BP 133/82; PULSE 69; TEMP 98.8
--- NOTE | 2019-07-20 11:32 | NUR ---
Patient assisted with dressing for discharge to [facility].
--- NOTE | 2019-07-20 11:32 | NUR ---
PATIENT IS AWAITING DISCHARGE TO [facility]. TOOK HIS MORNING MEDICATIONS EARLIER WITHOUT DIFFICULTY. NO COMPLAINTS OF SHORTNESS OF BREATHE, DIZZINESS, OR NAUSEA/VOMITING.
--- NOTE | 2019-07-20 12:45 | NUR ---
Patient discharged to [facility], accompanied by [facility] staff. Report called. Personal belongings with patient.
== END 2019-07-20 12:00 | DRG 287 ==
LOC: COL.ER 11:33 → MEDICAL 13:45 → COL.ER 13:45 → MEDICAL 13:46
PROVIDERS: Emergency Medicine; Nurse Practitioner; ADMIT Hospitalist
PROC: B2111ZZ Fluoroscopy of Multiple Coronary Arteries using Low Osmolar Contrast (ICD-10-PCS; principal; 2019-07-18)
DX: R07.89 Other chest pain (principal); J96.11 Chronic respiratory failure with hypoxia; I48.91 Unspecified atrial fibrillation; E78.5 Hyperlipidemia, unspecified; I10 Essential (primary) hypertension; F32.9 Major depressive disorder, single episode, unspecified; I25.10 Atherosclerotic heart disease of native coronary artery without angina pectoris; E66.01 Morbid (severe) obesity due to excess calories; G72.89 Other specified myopathies; I08.1 Rheumatic disorders of both mitral and tricuspid valves; I27.20 Pulmonary hypertension, unspecified; E87.5 Hyperkalemia; Z95.0 Presence of cardiac pacemaker; Z79.01 Long term (current) use of anticoagulants; Z99.81 Dependence on supplemental oxygen; Z79.82 Long term (current) use of aspirin; Z88.6 Allergy status to analgesic agent; Z68.32 Body mass index [BMI] 32.0-32.9, adult
CPT/HCPCS: OP; 99231-AI; 99239; A9500; G0378; J1644; J1650; J2250; J2785; J3010; J7030; J7040

== ENCOUNTER → 2019-08-01 | Outpatient (CLI) | payer MEDICARE, OTHER, MEDICAID ==
[2019-08-02 15:46] LABS: C-ANCA 9 U/mL (0-99)
[2019-08-02 16:36] LABS: RHEUMATOID FACTOR-SCREEN <15 IU/mL (0-29)
[2019-08-03 16:34] LABS: ANGIOTENSIN CONVERTING ENZYME <5 U/L (16 - 85)
== END ==
LOC: ZLAB.STJ 10:19
PROVIDERS: Internal Medicine Pulmonary Disease
DX: J96.01 Acute respiratory failure with hypoxia (principal)

== ENCOUNTER 2019-08-07 22:50 | Emergency (ER) | payer MEDICARE, OTHER, MEDICAID ==
[~2019-08-07] VITALS: Ht 185.4 cm; Wt 113.6 kg
[2019-08-07 22:53] VITALS: TEMP 97.9
[2019-08-07 23:17] LABS: BASO # 0.1 (0.0-0.2); BASO % 1.1 % (0.0-2.0); EOS # 0.1 (0.0-0.7); EOS % 1.6 % (0-4.0); GRAN # 5.6 (1.4-6.5); GRAN % 68.5 % (42.2-75.2); HEMOGLOBIN 11.4 g/dl (13.5-18.0); LYMPH # 1.5 (1.2-3.4); LYMPH % 18.6 % (20.0-51.0); MEAN CELL VOLUME 95 fl (80.0-100.0); MEAN CORPUSCULAR HEMOGLOBIN 30 pg (27.0-31.0); MEAN CORPUSCULAR HGB CONC 31 g/dl (33.0-37.0); MEAN PLATELET VOLUME 10.4 fl (7.4-10.4); MONO # 0.8 (0.1-0.6); MONO % 9.6 % (1.7-9.3); PLATELET COUNT 200 K/mm3 (130-400); RED BLOOD COUNT 3.87 M/mm3 (4.20-5.60); REDCELL DISTRIBUTION WIDTH-CV 13.6 % (11.5-14.5)
[2019-08-07 23:20] LABS: HEMATOCRIT 36.8 % (42.0-52.0)
[2019-08-07 23:27] LABS: ALANINE AMINOTRANSFERASE 29 U/L (21-72); ALKALINE PHOSPHATASE 123 U/L (50-136); ANION GAP 7 mmol/L (7-16); AST,SGOT 23 U/L (15-37); BILIRUBIN,TOTAL 0.2 mg/dL (0.0-1.0); BLOOD UREA NITROGEN 18 mg/dL (9-20); CALCIUM 9.9 mg/dL (8.4-10.2); CARBON DIOXIDE 26 mmol/L (22-30); CHLORIDE 107 mmol/L (98-107); CREATININE, serum 0.96 (0.66-1.25); GLUCOSE 105 mg/dL (74-106); SODIUM 140 mmol/L (137-145)
[2019-08-08 00:38] LABS: TROPONIN-I < 0.012 ng/mL (0.000-0.035)
[2019-08-08 02:30] VITALS: PULSE 64
[2019-08-08 02:45] VITALS: BP 117/89
== END 2019-08-08 03:45 | disposition home or self-care (01) ==
LOC: COL.ER 22:50
PROVIDERS: Emergency Medicine
DX: R07.89 Other chest pain (principal); R06.02 Shortness of breath; E78.5 Hyperlipidemia, unspecified; I25.10 Atherosclerotic heart disease of native coronary artery without angina pectoris; I10 Essential (primary) hypertension

== ENCOUNTER → 2019-08-21 | Outpatient (CLI) | payer MEDICARE, OTHER, MEDICAID ==
[2019-08-21 09:41] LABS: COLLECTION METHOD CLEAN CATCH
[2019-08-21 09:46] LABS: BASO # 0.1 (0.0-0.2); BASO % 1.7 % (0.0-2.0); EOS # 0.1 (0.0-0.7); EOS % 1.9 % (0-4.0); GRAN % 68.4 % (42.2-75.2); HEMOGLOBIN 11.6 g/dl (13.5-18.0); LYMPH # 1.1 (1.2-3.4); LYMPH % 19.8 % (20.0-51.0); MEAN CELL VOLUME 95 fl (80.0-100.0); MEAN CORPUSCULAR HEMOGLOBIN 29 pg (27.0-31.0); MEAN CORPUSCULAR HGB CONC 31 g/dl (33.0-37.0); MONO # 0.4 (0.1-0.6); MONO % 7.5 % (1.7-9.3); PLATELET COUNT 164 K/mm3 (130-400); RED BLOOD COUNT 3.99 M/mm3 (4.20-5.60)
[2019-08-21 09:48] LABS: MUCOUS Present /lpf; PH 5 (5-8); SQUAMOUS EPITHELIAL None Seen /hpf; URINE APPEARANCE Clear; URINE BACTERIA None Seen /hpf; URINE BILIRUBIN Negative (NEGATIVE); URINE BLOOD Negative (NEGATIVE); URINE COLOR Yellow; URINE GLUCOSE Negative (NEGATIVE); URINE KETONE Negative (NEGATIVE); URINE LEUKOCYTE ESTERASE Negative (NEGATIVE); URINE NITRATE Negative (NEGATIVE); URINE PROTEIN(semi-quant) Negative (NEGATIVE); URINE RBC 0-2 /hpf; URINE UROBILINOGEN Negative (NEGATIVE)
[2019-08-21 09:52] LABS: BILIRUBIN,TOTAL 0.5 mg/dL (0.0-1.0); CALCIUM 9.8 mg/dL (8.4-10.2); CREATININE, serum 0.75 (0.66-1.25); POTASSIUM 5.6 mmol/L (3.4-5.0); TOTAL PROTEIN 6.8 gm/dL (6.4-8.2)
[2019-08-21 10:22] LABS: THYROID STIMULATING HORMONE 0.612 uIU/mL (0.465-4.680)
== END ==
LOC: ZLAB.STJ 09:24
PROVIDERS: Internal Medicine
DX: N39.0 Urinary tract infection, site not specified (principal); R68.89 Other general symptoms and signs; R94.6 Abnormal results of thyroid function studies

== ENCOUNTER → 2019-08-22 | Outpatient (CLI) | payer MEDICARE, OTHER, MEDICAID ==
[2019-08-22 15:31] LABS: IRON,SERUM 52 ug/dL (35-150)
[2019-08-22 15:37] LABS: RETIC # 0.05 M/mm3 (0.02-0.16); RETIC % 1.2 % (0.5-3.52)
[2019-08-22 15:40] LABS: TOTAL IRON BINDING CAPACITY 352 ug/dL (261-462)
[2019-08-22 16:06] LABS: CALCIUM 10.3 mg/dL (8.4-10.2); CREATININE, serum 0.75 (0.66-1.25); POTASSIUM 5.4 mmol/L (3.4-5.0)
== END ==
LOC: ZLAB.STJ 14:04
PROVIDERS: Internal Medicine
DX: D50.0 Iron deficiency anemia secondary to blood loss (chronic) (principal); R79.0 Abnormal level of blood mineral

== ENCOUNTER → 2019-08-27 | Outpatient (CLI) | payer MEDICARE, OTHER, MEDICAID ==
[2019-08-27 10:49] LABS: CALCIUM 9.8 mg/dL (8.4-10.2); CREATININE, serum 0.75 (0.66-1.25); POTASSIUM 5.6 mmol/L (3.4-5.0)
[2019-08-27 14:02] LABS: CHOLESTEROL RISK RATIO 4.1
== END ==
LOC: ZLAB.STJ 09:20
PROVIDERS: Internal Medicine
DX: B18.2 Chronic viral hepatitis C (principal); E78.5 Hyperlipidemia, unspecified; R73.09 Other abnormal glucose

== ENCOUNTER → 2019-09-04 | Outpatient (CLI) | payer MEDICARE, OTHER, MEDICAID ==
[2019-09-04 16:14] LABS: CREATININE, serum 0.97 (0.66-1.25); POTASSIUM 4.8 mmol/L (3.4-5.0)
== END ==
LOC: ZLAB.STJ 14:13
PROVIDERS: Internal Medicine
DX: R79.89 Other specified abnormal findings of blood chemistry (principal)

== ENCOUNTER → 2019-09-14 | Outpatient (CLI) | payer MEDICARE, OTHER, MEDICAID | LOC: ZCOL.LAB 07:30 | DX: E55.9 Vitamin D deficiency, unspecified (principal); R79.89 Other specified abnormal findings of blood chemistry ==

== ENCOUNTER → 2019-11-02 | Outpatient (CLI) | payer MEDICARE, OTHER, MEDICAID ==
[2019-11-02 11:43] LABS: COLLECTION METHOD CLEAN CATCH
[2019-11-02 12:03] LABS: ALBUMIN 3.9 gm/dL (3.5-5.0); BILIRUBIN,TOTAL 0.6 mg/dL (0.0-1.0); CALCIUM 10.8 mg/dL (8.4-10.2); CREATININE, serum 0.9 (0.66-1.25); POTASSIUM 4.9 mmol/L (3.4-5.0); TOTAL PROTEIN 6.8 gm/dL (6.4-8.2)
[2019-11-02 12:33] LABS: MUCOUS Present /lpf; PH 5 (5-8); SQUAMOUS EPITHELIAL 0-2 /hpf; THYROID STIMULATING HORMONE 0.496 uIU/mL (0.465-4.680); URINE APPEARANCE Clear; URINE BACTERIA None Seen /hpf; URINE BILIRUBIN Negative (NEGATIVE); URINE BLOOD Negative (NEGATIVE); URINE COLOR Yellow; URINE GLUCOSE Negative (NEGATIVE); URINE KETONE Negative (NEGATIVE); URINE LEUKOCYTE ESTERASE Negative (NEGATIVE); URINE NITRATE Negative (NEGATIVE); URINE PROTEIN(semi-quant) Negative (NEGATIVE); URINE RBC 0-2 /hpf; URINE UROBILINOGEN Negative (NEGATIVE)
[2019-11-02 22:24] LABS: PTH,INTACT 574.7 pg/mL (6.6-88.9)
== END ==
LOC: ZLAB.STJ 11:06
DX: E21.5 Disorder of parathyroid gland, unspecified (principal); R79.89 Other specified abnormal findings of blood chemistry; R94.6 Abnormal results of thyroid function studies; N39.0 Urinary tract infection, site not specified; E55.9 Vitamin D deficiency, unspecified

== ENCOUNTER → 2019-12-03 | Outpatient (CLI) | payer MEDICARE, OTHER, MEDICAID | LOC: ZLAB.STJ 16:48 | DX: R73.09 Other abnormal glucose (principal) ==

== ENCOUNTER → 2020-06-16 | Outpatient (REF) | LOC: ZLAB.STJ 15:25 | DX: Z01.89 Encounter for other specified special examinations (principal) ==

== ENCOUNTER → 2020-08-04 | Outpatient (CLI) | payer MEDICARE, OTHER, MEDICAID ==
[2020-08-04 23:00] LABS: CALCIUM 11.6 mg/dL (8.4-10.2); CREATININE, serum 0.85 (0.66-1.25); POTASSIUM 5.1 mmol/L (3.4-5.0)
== END ==
LOC: ZCOL.LAB 22:24
PROVIDERS: Internal Medicine
DX: Z51.89 Encounter for other specified aftercare (principal); R68.89 Other general symptoms and signs; R73.09 Other abnormal glucose

== ENCOUNTER → 2020-08-05 | Outpatient (CLI) | payer MEDICARE, OTHER, MEDICAID ==
[2020-08-05 21:56] LABS: URINE MICROALBUMIN 2.1 mg/dL (0.0-1.7)
== END ==
LOC: ZCOL.LAB 11:59
PROVIDERS: Internal Medicine
DX: R80.9 Proteinuria, unspecified (principal)

== ENCOUNTER → 2020-08-06 | Outpatient (CLI) | payer MEDICARE, OTHER, MEDICAID | LOC: ZLAB.STJ 11:56 | DX: Z13.1 Encounter for screening for diabetes mellitus (principal) ==

== ENCOUNTER → 2020-08-12 | Outpatient (CLI) | payer MEDICARE, OTHER, MEDICAID ==
[2020-08-12 12:34] LABS: CALCIUM 12.2 mg/dL (8.4-10.2); CREATININE, serum 0.8 (0.66-1.25); POTASSIUM 5.7 mmol/L (3.4-5.0)
[2020-08-12 22:05] LABS: PTH,INTACT 500.2 pg/mL (6.6-88.9)
== END ==
LOC: ZLAB.STJ 11:56
PROVIDERS: Internal Medicine
DX: E21.3 Hyperparathyroidism, unspecified (principal); E55.9 Vitamin D deficiency, unspecified; R79.89 Other specified abnormal findings of blood chemistry

== ENCOUNTER → 2020-08-18 | Outpatient (CLI) | payer MEDICARE, OTHER, MEDICAID ==
[2020-08-18 13:16] LABS: CALCIUM 11.2 mg/dL (8.4-10.2); CREATININE, serum 0.88 (0.66-1.25); POTASSIUM 5.1 mmol/L (3.4-5.0)
== END ==
LOC: ZCOL.LAB 12:45
PROVIDERS: Internal Medicine
DX: Z51.89 Encounter for other specified aftercare (principal)

== ENCOUNTER → 2020-09-30 | Outpatient (CLI) | payer MEDICARE, OTHER, MEDICAID ==
[2020-09-30 11:12] LABS: ALBUMIN 4.1 gm/dL (3.5-5.0); BILIRUBIN,TOTAL 0.4 mg/dL (0.0-1.0); CALCIUM 11.5 mg/dL (8.4-10.2); CHOLESTEROL RISK RATIO 2.9; CREATININE, serum 0.74 (0.66-1.25); MAGNESIUM 1.9 mg/dL (1.6-2.3); POTASSIUM 5.1 mmol/L (3.4-5.0)
[2020-09-30 11:45] LABS: THYROID STIMULATING HORMONE 0.719 uIU/mL (0.465-4.680)
== END ==
LOC: ZLAB.STJ 10:15
PROVIDERS: Internal Medicine
DX: E21.3 Hyperparathyroidism, unspecified (principal); I10 Essential (primary) hypertension

== ENCOUNTER → 2020-10-13 | Outpatient (CLI) | payer MEDICARE, OTHER, MEDICAID | LOC: COL.RAD 11:33 | DX: D36.9 Benign neoplasm, unspecified site (principal); E87.5 Hyperkalemia; E11.8 Type 2 diabetes mellitus with unspecified complications; R22.2 Localized swelling, mass and lump, trunk ==

== ENCOUNTER → 2020-10-16 | Outpatient (CLI) | payer MEDICARE, OTHER, MEDICAID ==
[2020-10-16 17:56] LABS: ALBUMIN 4.3 gm/dL (3.5-5.0); BILIRUBIN,TOTAL 0.3 mg/dL (0.0-1.0); CALCIUM 11.1 mg/dL (8.4-10.2); CREATININE, serum 0.95 (0.66-1.25); POTASSIUM 4.8 mmol/L (3.4-5.0); TOTAL PROTEIN 7.7 gm/dL (6.4-8.2)
== END ==
LOC: ZLAB.STJ 15:08
PROVIDERS: Internal Medicine
DX: E83.52 Hypercalcemia (principal)

== ENCOUNTER → 2020-10-29 | Outpatient (CLI) | payer MEDICARE, OTHER, MEDICAID ==
[2020-10-29 15:52] LABS: URINE TOTAL VOLUME 1360 mL
[2020-10-29 16:04] LABS: ALBUMIN 4.2 gm/dL (3.5-5.0); ANION GAP 11 mmol/L (7-16); BLOOD UREA NITROGEN 16 mg/dL (9-20); CALCIUM 10.8 mg/dL (8.4-10.2); CARBON DIOXIDE 22 mmol/L (22-30); CHLORIDE 105 mmol/L (98-107); CREATININE, serum 0.86 (0.66-1.25); GLUCOSE 203 mg/dL (74-106); PHOSPHOROUS 3.4 mg/dL (2.5-4.5); POTASSIUM 5.2 mmol/L (3.4-5.0); SODIUM 138 mmol/L (137-145)
== END ==
LOC: ZLAB.STJ 12:13
PROVIDERS: Internal Medicine
DX: R94.4 Abnormal results of kidney function studies (principal); R79.89 Other specified abnormal findings of blood chemistry

== ENCOUNTER → 2020-11-11 | Outpatient (CLI) | payer MEDICARE, OTHER, MEDICAID | LOC: COL.RAD 13:43 | DX: D35.1 Benign neoplasm of parathyroid gland (principal); M41.82 Other forms of scoliosis, cervical region; I51.7 Cardiomegaly; I77.810 Thoracic aortic ectasia | CPT/HCPCS: Q9967 ==

== ENCOUNTER → 2020-11-30 | Outpatient (CLI) | payer MEDICARE, OTHER, MEDICAID ==
[2020-11-30 12:28] LABS: BILIRUBIN,TOTAL 0.3 mg/dL (0.0-1.0); CALCIUM 10.8 mg/dL (8.4-10.2); CREATININE, serum 1.03 (0.66-1.25); POTASSIUM 4.2 mmol/L (3.4-5.0)
== END ==
LOC: ZLAB.STJ 11:58
PROVIDERS: Internal Medicine
DX: E55.9 Vitamin D deficiency, unspecified (principal); I50.23 Acute on chronic systolic (congestive) heart failure

== ENCOUNTER → 2021-02-04 | Outpatient (CLI) | payer MEDICARE, OTHER, MEDICAID | LOC: ZLAB.STJ 15:18 | DX: E11.9 Type 2 diabetes mellitus without complications (principal) ==

== ENCOUNTER → 2021-03-25 | Outpatient (CLI) | payer MEDICARE, OTHER, MEDICAID | LOC: ZCOL.LAB 16:17 | DX: E21.3 Hyperparathyroidism, unspecified (principal) ==

== ENCOUNTER → 2021-05-28 | Outpatient (CLI) | payer MEDICARE, OTHER, MEDICAID ==
[2021-05-28 10:50] LABS: ALBUMIN 3.9 gm/dL (3.4-4.8); CALCIUM 11.5 mg/dL (8.4-10.2); CREATININE, serum 1.12 mg/dL (0.72-1.25)
== END ==
LOC: ZLAB.STJ 10:11
PROVIDERS: Internal Medicine
DX: I27.20 Pulmonary hypertension, unspecified (principal); E21.3 Hyperparathyroidism, unspecified

== ENCOUNTER → 2021-06-04 | Outpatient (CLI) | payer MEDICARE, OTHER, MEDICAID | LOC: ZLAB.STJ 11:23 | DX: E83.52 Hypercalcemia (principal) ==

== ENCOUNTER → 2021-06-21 | Outpatient (CLI) | payer MEDICARE, MEDICAID | LOC: ZLAB.STJ 18:22 | DX: E21.3 Hyperparathyroidism, unspecified (principal) ==

== ENCOUNTER 2021-06-23 14:38 | Inpatient (IN) | payer MEDICARE, MEDICAID ==
--- NOTE | 2021-07-07 12:15 | NUR ---
PATIENT ADMITTED TO AMB UNIT PER PERSONAL WHEELCHAIR. PATIENT IS ABLE TO TRANSFER SELF WITH STAND BY ASSIST. PATIENT IS ALERT AND ORIENTED. PATIENT ABLE TO ANSWER QUESTIONS. HISTORY DONE YESTERDAY. ASSESSMENT COMPLETED. SEE INPATIENT PHYSICAL ASSESSMENT. SEE PROCESS INTERVENTION FOR IV START. RESPIRATIORY HERE FOR EKG. DR LUIS NOTIFIED OF PATIENT ADMISSION AND CONSULT PUT INTO COMPUTER.
[2021-07-07] MEDS ORDERED: MELATIN 3 MG-11 TAB PO (13:00)
[2021-07-07] MEDS ORDERED: PROBIOTIC ACID1 EAC3 PO (13:05)
[2021-07-07] MEDS ORDERED: TOPROL XL 25MG25 MG (13:07)
[2021-07-07] MEDS ORDERED: LASIX 20MG TABL20 MG PO (13:07)
[2021-07-07] MEDS ORDERED: VITAMIN D31000 I1 PO (13:09)
[2021-07-07] MEDS ORDERED: GLUCOPHAGE1000 MG PO (13:10)
[2021-07-07] MEDS ORDERED: RT ADVAIR 228 DISKUS IH (13:10)
[2021-07-07] MEDS ORDERED: PEPCID 20MG TAB20 MG PO (13:11)
[2021-07-07] MEDS ORDERED: FOSAMAX 70MG TA70 MG PO (13:12)
[2021-07-07] MEDS ORDERED: SENSIPAR60 MG PO (13:13)
[2021-07-07] MEDS ORDERED: ARICEPT 5MG PO (13:15)
--- NOTE | 2021-07-07 18:50 | NUR ---
SHIFT REPORT OBTAINED FROM RIC AMEZCUA RN,
[2021-07-07 19:00] VITALS: BP 137/71; PULSE 61; TEMP 98.5
--- NOTE | 2021-07-07 19:00 | NUR ---
PT RESTING IN BED. A&Ox4. NS INFUSING AT 125CC/HR. NECK DRSG CDI AT THIS TIME. O2 PER OXYMASK AT 3L. NO RESP DISTRESS. CALL LIGHT IN REACH.
[2021-07-07 19:30] VITALS: BP 132/79; PULSE 60
--- NOTE | 2021-07-07 20:00 | NUR ---
SUTURE SET AT BEDSIDE. HOB KEPT ELEVATED ORDERED.
[2021-07-07 20:45] VITALS: BP 138/77; PULSE 60
--- NOTE | 2021-07-07 21:50 | NUR ---
PT CONTINUES RESTING QUIETLY. DENIES PAIN. VSS.
[2021-07-08] VITALS: BP 135/86; PULSE 63; TEMP 98.4
--- NOTE | 2021-07-08 01:00 | NUR ---
REPOSITIONED PT. NECK DRSG CONTINUES TO BE DRY. WEARS DIAPERS. DIAPERS DRY AT THIS TIME. DENIES PAIN. CALL LIGHT IN REACH. BED ALARM SET.
--- NOTE | 2021-07-08 03:54 | NUR ---
PT HAS BEEN RESTING WELL.
[2021-07-08 04:00] VITALS: BP 138/88; PULSE 60; TEMP 97.8
[2021-07-08 07:12] LABS: ALBUMIN 3.3 gm/dL (3.4-4.8); CALCIUM 8.6 mg/dL (8.4-10.2); CREATININE, serum 1.15 mg/dL (0.72-1.25); PHOSPHOROUS 4.3 mg/dL (2.3-4.7); POTASSIUM 5.2 mmol/L (3.5-4.5)
--- NOTE | 2021-07-08 07:30 | NUR ---
Pt doing well this morning. Assisted with ordering his breakast. Dressing to throat is CDI. Pt reports not having any pain at this time. Gave him some fresh ice water, no other needs verbalized, will continue to monitor
[2021-07-08 07:38] VITALS: BP 136/80; PULSE 62; TEMP 98.3
--- NOTE | 2021-07-08 09:58 | NUR ---
Initial visit; Patient thanked God for looking in on him though declined Spiritual Care.
--- NOTE | 2021-07-08 10:18 | NUR ---
Pt tolerated lunch with no issues. Continues to report that he is not having any pain. Assisted him with ordering lunch per his request. No other needs verbalized. Assisted pt back in lying position, call light within reach.
--- NOTE | 2021-07-08 10:25 | NUR ---
Called RT regarding pt having an order for IS
[2021-07-08 11:46] VITALS: BP 122/69; PULSE 70
[2021-07-08] MEDS ORDERED: TUMS500 MG PO (13:10)
[2021-07-08] MEDS ORDERED: APRESOLINE 25MG25 MG PO (13:23)
--- NOTE | 2021-07-08 13:40 | NUR ---
Discussed pt discharge with Zainab, WORK DISTRIBUTOR with Dr Ordaz. New orders entered and script wrote for lab work.
--- NOTE | 2021-07-08 15:10 | NUR ---
[facility] transportation has arrived to get pt, pt escorted out
--- NOTE | 2021-07-08 15:27 | NUR ---
Corporate Buyer met with patient to discuss discharge planning. Patient lives at [facility] and advised his primary care physician is Dr. Gray. Patient uses a wheelchair for ambulation and reports he gets assistance with ADLS at [facility]. Patient reports his brother Lon is his DPOA-HC. Patient plans to return to [facility] upon discharge. RENEA collaborated with Esa at [facility] as patient is ready for discharge today. Transport time set for 1500. RENEA faxed discharge orders and negative covid results. Discharge Plan: Return to [facility] LTC
== END 2021-07-08 15:10 | DRG 627 ==
LOC: INPTSU 07-07 11:45 → SURG 07-07 14:00
PROVIDERS: Internal Medicine Nephrology; ADMIT Surgery
PROC: 0GBN0ZZ Excision of Right Inferior Parathyroid Gland, Open Approach (ICD-10-PCS; principal; 2021-07-07 14:00)
DX: D35.1 Benign neoplasm of parathyroid gland (principal); E21.0 Primary hyperparathyroidism; I12.9 Hypertensive chronic kidney disease with stage 1 through stage 4 chronic kidney disease, or unspecified chronic kidney disease; N18.31 Chronic kidney disease, stage 3a; E11.22 Type 2 diabetes mellitus with diabetic chronic kidney disease; Z20.822 Contact with and (suspected) exposure to COVID-19; Z23 Encounter for immunization
CPT/HCPCS: A9284; J0330; J0690; J2405; J2704; J3010; J7030

== ENCOUNTER → 2021-06-25 | Outpatient (CLI) | payer MEDICARE, MEDICAID ==
[2021-06-25 11:53] LABS: ALBUMIN 3.6 gm/dL (3.4-4.8); BILIRUBIN,TOTAL 0.4 mg/dL (0.2-1.2); CALCIUM 9.7 mg/dL (8.4-10.2); CREATININE, serum 1.08 mg/dL (0.72-1.25); POTASSIUM 4.9 mmol/L (3.5-4.5); TOTAL PROTEIN 6.5 gm/dL (6.2-8.1)
[2021-06-25 12:00] LABS: BASO # 0.1 K/mm3 (0.0-0.2); BASO % 1.3 % (0.0-2.0); EOS # 0.2 K/mm3 (0.0-0.7); EOS % 3.2 % (0.0-4.0); GRAN # 3.7 K/mm3 (1.4-6.5); GRAN % 70.8 % (42.2-75.2); LYMPH # 0.9 K/mm3 (1.2-3.4); LYMPH % 17.2 % (20.0-51.0); MEAN CELL VOLUME 88 fl (80.0-100.0); MEAN CORPUSCULAR HGB CONC 30 g/dl (33.0-37.0); MEAN PLATELET VOLUME 10.6 fl (7.4-10.4); MONO # 0.4 K/mm3 (0.1-0.6); MONO % 6.9 % (1.7-9.3); PLATELET COUNT 213 K/mm3 (130-400); RED BLOOD COUNT 3.75 M/mm3 (4.20-5.60); REDCELL DISTRIBUTION WIDTH-CV 14.9 % (11.5-14.5)
[2021-06-25 12:02] LABS: HEMATOCRIT 32.9 % (42.0-52.0); HEMOGLOBIN 9.9 g/dl (13.5-18.0); MEAN CORPUSCULAR HEMOGLOBIN 26 pg (27-31)
== END ==
LOC: ZLAB.STJ 11:43
PROVIDERS: Internal Medicine
DX: D50.9 Iron deficiency anemia, unspecified (principal); E21.3 Hyperparathyroidism, unspecified

== ENCOUNTER 2021-06-26 11:29 | Emergency (ER) | payer MEDICARE, MEDICAID ==
[~2021-06-26] VITALS: Ht 185.4 cm; Wt 118.2 kg
[2021-06-26 11:41] VITALS: BP 127/72; TEMP 98.9
[2021-06-26 12:25] VITALS: PULSE 63
== END 2021-06-26 12:27 | disposition home or self-care (01) ==
LOC: COL.ER 11:29
DX: I80.222 Phlebitis and thrombophlebitis of left popliteal vein (principal); E11.9 Type 2 diabetes mellitus without complications; I48.91 Unspecified atrial fibrillation; I50.9 Heart failure, unspecified; F32.A Depression, unspecified; K21.9 Gastro-esophageal reflux disease without esophagitis; J44.9 Chronic obstructive pulmonary disease, unspecified; Z95.0 Presence of cardiac pacemaker; Z88.6 Allergy status to analgesic agent; Z79.82 Long term (current) use of aspirin; Z79.899 Other long term (current) drug therapy

== ENCOUNTER → 2021-07-02 | Outpatient (CLI) | payer MEDICARE, MEDICAID ==
[~2021-07-02] MED LIST changes: +APRESOLINE 25MG25 MG PO; +ARICEPT 5MG PO; +FOSAMAX 70MG TA70 MG PO; +GLUCOPHAGE1000 MG PO; +LASIX 20MG TABL20 MG PO; +PROBIOTIC ACID1 EAC3 PO; +RT ADVAIR 228 DISKUS IH; +SENSIPAR60 MG PO; +TOPROL XL 25MG25 MG; +TUMS500 MG PO; +VITAMIN D31000 I1 PO
[2021-07-02 09:59] LABS: HEMOGLOBIN 10.1 g/dl (13.5-18.0); MEAN CELL VOLUME 88 fl (80.0-100.0); MEAN CORPUSCULAR HEMOGLOBIN 26 pg (27-31); MEAN CORPUSCULAR HGB CONC 29 g/dl (33.0-37.0); MEAN PLATELET VOLUME 10.5 fl (7.4-10.4); PLATELET COUNT 238 K/mm3 (130-400); RED BLOOD COUNT 3.91 M/mm3 (4.20-5.60); REDCELL DISTRIBUTION WIDTH-CV 14.7 % (11.5-14.5)
[2021-07-02 10:09] LABS: HEMATOCRIT 34.5 % (42.0-52.0)
[2021-07-02 10:36] LABS: EOSINOPHIL 2 % (0-4); LYMPHOCYTE 23 % (20.0-51.0); NEUTROPHILS 70 % (42.0-75.2)
[2021-07-02 10:37] LABS: OVALOCYTES 1+; PLATELET ESTIMATE NORMAL (NORMAL); SCHISTOCYTES 1+
[2021-07-02 10:38] LABS: ANISOCYTOSIS 1+
== END ==
LOC: ZLAB.STJ 09:37
PROVIDERS: Surgery
DX: D50.9 Iron deficiency anemia, unspecified (principal); E21.3 Hyperparathyroidism, unspecified; R79.9 Abnormal finding of blood chemistry, unspecified

== ENCOUNTER → 2021-07-16 | Outpatient (CLI) | payer MEDICARE, MEDICAID ==
[2021-07-16 16:50] LABS: BASO # 0.1 K/mm3 (0.0-0.2); EOS # 0.1 K/mm3 (0.0-0.7); EOS % 0.8 % (0.0-4.0); HEMATOCRIT 29.7 % (42.0-52.0); HEMOGLOBIN 8.8 g/dl (13.5-18.0); LYMPH # 0.8 K/mm3 (1.2-3.4); LYMPH % 9.7 % (20.0-51.0); MEAN CELL VOLUME 87 fl (80.0-100.0); MEAN CORPUSCULAR HEMOGLOBIN 26 pg (27-31); MEAN CORPUSCULAR HGB CONC 30 g/dl (33.0-37.0); MEAN PLATELET VOLUME 10.6 fl (7.4-10.4); MONO # 0.6 K/mm3 (0.1-0.6); MONO % 6.8 % (1.7-9.3); PLATELET COUNT 327 K/mm3 (130-400)
[2021-07-16 17:03] LABS: ALBUMIN 3.2 gm/dL (3.4-4.8); BILIRUBIN,TOTAL 0.4 mg/dL (0.2-1.2); CREATININE, serum 1.19 mg/dL (0.72-1.25); POTASSIUM 4.6 mmol/L (3.5-4.5); TOTAL PROTEIN 6.9 gm/dL (6.2-8.1)
[2021-07-16 17:23] LABS: THYROID STIMULATING HORMONE 0.123 uIU/mL (0.350-4.940)
== END ==
LOC: ZLAB.STJ 16:43
PROVIDERS: Nurse Practitioner Family
DX: D50.9 Iron deficiency anemia, unspecified (principal); E21.3 Hyperparathyroidism, unspecified

== ENCOUNTER → 2021-08-05 | Outpatient (CLI) | payer MEDICARE, MEDICAID ==
[2021-08-05 10:00] LABS: ALBUMIN 2.9 gm/dL (3.4-4.8); BILIRUBIN,TOTAL 0.4 mg/dL (0.2-1.2); CREATININE, serum 1.19 mg/dL (0.72-1.25); TOTAL PROTEIN 6.6 gm/dL (6.2-8.1)
[2021-08-05 10:08] LABS: CALCIUM 5.8 mg/dL (8.4-10.2)
== END ==
LOC: ZLAB.STJ 09:28
PROVIDERS: Internal Medicine
DX: E21.3 Hyperparathyroidism, unspecified (principal)

== ENCOUNTER 2021-08-06 17:13 | Emergency (ER) | payer MEDICARE, MEDICAID ==
[~2021-08-06] VITALS: Ht 185.4 cm; Wt 104.5 kg
[2021-08-06 17:32] VITALS: TEMP 99.3
[2021-08-06 18:25] LABS: MEAN CELL VOLUME 82 fl (80.0-100.0); MEAN CORPUSCULAR HGB CONC 30 g/dl (33.0-37.0); MEAN PLATELET VOLUME 9.4 fl (7.4-10.4); PLATELET COUNT 334 K/mm3 (130-400); RED BLOOD COUNT 3.12 M/mm3 (4.20-5.60)
[2021-08-06 18:28] LABS: HEMATOCRIT 25.7 % (42.0-52.0); HEMOGLOBIN 7.8 g/dl (13.5-18.0); MEAN CORPUSCULAR HEMOGLOBIN 25 pg (27-31)
[2021-08-06 18:39] LABS: ALBUMIN 2.7 gm/dL (3.4-4.8); BILIRUBIN,TOTAL 0.5 mg/dL (0.2-1.2); CALCIUM 7.3 mg/dL (8.4-10.2); CREATININE, serum 1.06 mg/dL (0.72-1.25); MAGNESIUM 1.3 mg/dL (1.6-2.6); POTASSIUM 4.1 mmol/L (3.5-4.5); TOTAL PROTEIN 6.3 gm/dL (6.2-8.1)
[2021-08-06 19:15] LABS: ANISOCYTOSIS 1+; HYPOCHROMIA 1+; LYMPHOCYTE 10 % (20.0-51.0); NEUTROPHILS 81 % (42.0-75.2); OVALOCYTES 2+; PLATELET ESTIMATE NORMAL (NORMAL)
[2021-08-06 20:20] VITALS: BP 159/98; PULSE 78
== END 2021-08-06 20:20 | disposition home or self-care (01) ==
LOC: COL.ER 17:13
PROVIDERS: Personal Emergency Response Attendant
DX: E83.51 Hypocalcemia (principal); D64.9 Anemia, unspecified; I10 Essential (primary) hypertension; E11.9 Type 2 diabetes mellitus without complications; F32.A Depression, unspecified; I25.10 Atherosclerotic heart disease of native coronary artery without angina pectoris; E78.5 Hyperlipidemia, unspecified; Z79.82 Long term (current) use of aspirin; Z79.84 Long term (current) use of oral hypoglycemic drugs; Z79.899 Other long term (current) drug therapy
CPT/HCPCS: J7030

== ENCOUNTER → 2021-08-06 | Outpatient (CLI) | payer MEDICARE, MEDICAID | LOC: COL.RAD 12:17 | DX: E21.3 Hyperparathyroidism, unspecified (principal) ==

== ENCOUNTER → 2021-08-08 | Outpatient (REF) | payer MEDICARE, MEDICAID ==
[2021-08-07 10:00] LABS: ALBUMIN 2.7 gm/dL (3.4-4.8); BILIRUBIN,TOTAL 0.6 mg/dL (0.2-1.2); CALCIUM 6.9 mg/dL (8.4-10.2); CREATININE, serum 1.03 mg/dL (0.72-1.25); POTASSIUM 4.4 mmol/L (3.5-4.5); TOTAL PROTEIN 6.3 gm/dL (6.2-8.1)
[2021-08-08 18:01] LABS: ALBUMIN 2.7 gm/dL (3.4-4.8); BILIRUBIN,TOTAL 0.5 mg/dL (0.2-1.2); CALCIUM 6.9 mg/dL (8.4-10.2); CREATININE, serum 1.1 mg/dL (0.72-1.25); POTASSIUM 4.5 mmol/L (3.5-4.5); TOTAL PROTEIN 6.3 gm/dL (6.2-8.1)
== END ==
LOC: ZLAB.STJ 08-07 09:42
PROVIDERS: Internal Medicine
DX: E83.52 Hypercalcemia (principal)

== ENCOUNTER → 2021-08-09 | Outpatient (CLI) | payer MEDICARE, MEDICAID ==
[2021-08-09 11:52] LABS: ALBUMIN 2.9 gm/dL (3.4-4.8); BILIRUBIN,TOTAL 0.5 mg/dL (0.2-1.2); CALCIUM 7.2 mg/dL (8.4-10.2); CREATININE, serum 1.09 mg/dL (0.72-1.25); POTASSIUM 4.7 mmol/L (3.5-4.5); TOTAL PROTEIN 6.6 gm/dL (6.2-8.1)
== END ==
LOC: ZLAB.STJ 08:50
PROVIDERS: Internal Medicine
DX: E21.3 Hyperparathyroidism, unspecified (principal)

== ENCOUNTER → 2021-08-11 | Outpatient (CLI) | payer MEDICARE, MEDICAID ==
[2021-08-11 09:56] LABS: MEAN CELL VOLUME 82 fl (80.0-100.0); MEAN CORPUSCULAR HGB CONC 30 g/dl (33.0-37.0); MEAN PLATELET VOLUME 9.1 fl (7.4-10.4); PLATELET COUNT 318 K/mm3 (130-400)
[2021-08-11 09:58] LABS: HEMATOCRIT 24.7 % (42.0-52.0); HEMOGLOBIN 7.4 g/dl (13.5-18.0); MEAN CORPUSCULAR HEMOGLOBIN 25 pg (27-31)
[2021-08-11 10:12] LABS: ALBUMIN 2.7 gm/dL (3.4-4.8); BILIRUBIN,TOTAL 0.4 mg/dL (0.2-1.2); CALCIUM 6.7 mg/dL (8.4-10.2); CREATININE, serum 0.94 mg/dL (0.72-1.25); POTASSIUM 4.5 mmol/L (3.5-4.5)
== END ==
LOC: ZLAB.STJ 09:23
PROVIDERS: Internal Medicine
DX: D50.9 Iron deficiency anemia, unspecified (principal); D64.9 Anemia, unspecified

== ENCOUNTER → 2021-08-14 | Outpatient (CLI) | payer MEDICARE, MEDICAID ==
[2021-08-14 14:11] LABS: ALBUMIN 2.6 gm/dL (3.4-4.8); BILIRUBIN,TOTAL 0.3 mg/dL (0.2-1.2); C-REACTIVE PROTEIN 3.98 mg/dL (0.00-0.50); CREATININE, serum 0.95 mg/dL (0.72-1.25); POTASSIUM 5.1 mmol/L (3.5-4.5); TOTAL PROTEIN 5.9 gm/dL (6.2-8.1)
[2021-08-14 14:16] LABS: BASO # 0.1 K/mm3 (0.0-0.2); EOS # 0.1 K/mm3 (0.0-0.7); EOS % 1.1 % (0.0-4.0); GRAN # 6.5 K/mm3 (1.4-6.5); GRAN % 89.6 % (42.2-75.2); HEMATOCRIT 26.6 % (42.0-52.0); HEMOGLOBIN 7.9 g/dl (13.5-18.0); LYMPH # 0.3 K/mm3 (1.2-3.4); LYMPH % 4.5 % (20.0-51.0); MEAN CELL VOLUME 84 fl (80.0-100.0); MEAN CORPUSCULAR HEMOGLOBIN 25 pg (27-31); MEAN CORPUSCULAR HGB CONC 30 g/dl (33.0-37.0); MEAN PLATELET VOLUME 9.2 fl (7.4-10.4); MONO # 0.2 K/mm3 (0.1-0.6); PLATELET COUNT 357 K/mm3 (130-400); RED BLOOD COUNT 3.18 M/mm3 (4.20-5.60)
[2021-08-14 14:26] LABS: ERYTHROCYTE SEDIMENTATION RATE 44 mm/hr (0-30)
== END ==
LOC: ZLAB.STJ 13:32
PROVIDERS: Internal Medicine
DX: E21.3 Hyperparathyroidism, unspecified (principal)

== ENCOUNTER → 2021-08-16 | Outpatient (CLI) | payer MEDICARE, MEDICAID | LOC: ZLAB.STJ 03:20 | DX: R19.5 Other fecal abnormalities (principal) ==

== ENCOUNTER → 2021-08-20 | Outpatient (CLI) | payer MEDICARE, MEDICAID ==
[2021-08-20 17:09] LABS: ALBUMIN 3.1 gm/dL (3.4-4.8); BILIRUBIN,TOTAL 0.3 mg/dL (0.2-1.2); CALCIUM 7.2 mg/dL (8.4-10.2); CREATININE, serum 1.11 mg/dL (0.72-1.25); POTASSIUM 4.9 mmol/L (3.5-4.5); TOTAL PROTEIN 5.9 gm/dL (6.2-8.1)
== END ==
LOC: ZLAB.STJ 16:43
PROVIDERS: Internal Medicine
DX: I10 Essential (primary) hypertension (principal)

== ENCOUNTER → 2021-08-24 | Outpatient (CLI) | payer MEDICARE, MEDICAID ==
[2021-08-24 17:08] LABS: ALBUMIN 3.4 gm/dL (3.4-4.8); BILIRUBIN,TOTAL 0.4 mg/dL (0.2-1.2); CALCIUM 8.2 mg/dL (8.4-10.2); CREATININE, serum 1.27 mg/dL (0.72-1.25); MEAN CELL VOLUME 86 fl (80.0-100.0); MEAN CORPUSCULAR HGB CONC 29 g/dl (33.0-37.0); MEAN PLATELET VOLUME 9.5 fl (7.4-10.4); PLATELET COUNT 448 K/mm3 (130-400); RED BLOOD COUNT 3.63 M/mm3 (4.20-5.60); REDCELL DISTRIBUTION WIDTH-CV 17.3 % (11.5-14.5); TOTAL PROTEIN 6.4 gm/dL (6.2-8.1)
[2021-08-24 17:09] LABS: HEMATOCRIT 31.2 % (42.0-52.0); MEAN CORPUSCULAR HEMOGLOBIN 25 pg (27-31)
[2021-08-24 17:16] LABS: ANISOCYTOSIS 1+; BASOPHIL 1 % (0-2); LYMPHOCYTE 6 % (20.0-51.0); NEUTROPHILS 91 % (42.0-75.2); OVALOCYTES 1+; PLATELET ESTIMATE INCREASED (NORMAL)
[2021-08-24 17:17] LABS: HYPOCHROMIA 2+
[2021-08-24 17:32] LABS: POTASSIUM 5.8 mmol/L (3.5-4.5)
== END ==
LOC: ZLAB.STJ 15:34
PROVIDERS: Internal Medicine
DX: D50.9 Iron deficiency anemia, unspecified (principal); E11.22 Type 2 diabetes mellitus with diabetic chronic kidney disease; I12.9 Hypertensive chronic kidney disease with stage 1 through stage 4 chronic kidney disease, or unspecified chronic kidney disease; N18.9 Chronic kidney disease, unspecified; D63.1 Anemia in chronic kidney disease

== ENCOUNTER → 2021-08-26 | Outpatient (CLI) | payer MEDICARE, MEDICAID ==
[2021-08-26 10:25] LABS: CALCIUM 7.9 mg/dL (8.4-10.2); CREATININE, serum 0.99 mg/dL (0.72-1.25); POTASSIUM 4.9 mmol/L (3.5-4.5); URIC ACID 6.2 mg/dL (3.5-7.2)
== END ==
LOC: ZLAB.STJ 09:36
PROVIDERS: Internal Medicine
DX: E83.52 Hypercalcemia (principal); E79.0 Hyperuricemia without signs of inflammatory arthritis and tophaceous disease

== ENCOUNTER → 2021-09-15 | Outpatient (CLI) | payer MEDICARE, MEDICAID ==
[~2021-09-15] MED LIST changes: +ARICEPT10 MG PO; +ARTIFICIAL TEAR15 M7 OP; +CALCIUM-500 5001 CTB PO; +DULCOLAX STOOL100 MG PO; +FERROUS SU325 MG/TAB PO; +IMODIUM 2MG CAPS2 MG PO; +LASIX 40MG TABL40 MG PO; +MIRALAX PA17 GM/Dose PO; +NORVASC 10MG10 MG PO; +PROAIR DIGIHAL90 MCG IH; +REFRESH CELLUVI1 SOL OP; +ROCALTROL0.5 MCG PO; +RT ADVAIR 528 DISKUS IH; +RT SPIRIVA18 MCG IH; -TOPROL XL 25MG25 MG; +TOPROL XL 25MG25 MG PO; +VITAMIN C500 MG PO; +ZEBETA10 MG PO; +ZESTRIL 20MG TA20 MG PO
== END ==
LOC: ZLAB.STJ 09:57
DX: E11.22 Type 2 diabetes mellitus with diabetic chronic kidney disease (principal)

== ENCOUNTER → 2021-10-16 | Outpatient (CLI) | payer MEDICARE, MEDICAID ==
[~2021-10-16] MED LIST changes: -ARICEPT10 MG PO; -ARTIFICIAL TEAR15 M7 OP; -CALCIUM-500 5001 CTB PO; -DULCOLAX STOOL100 MG PO; -FERROUS SU325 MG/TAB PO; -IMODIUM 2MG CAPS2 MG PO; -LASIX 40MG TABL40 MG PO; -MIRALAX PA17 GM/Dose PO; -NORVASC 10MG10 MG PO; -PROAIR DIGIHAL90 MCG IH; -REFRESH CELLUVI1 SOL OP; -ROCALTROL0.5 MCG PO; -RT ADVAIR 528 DISKUS IH; -RT SPIRIVA18 MCG IH; +TOPROL XL 25MG25 MG; -TOPROL XL 25MG25 MG PO; -VITAMIN C500 MG PO; -ZEBETA10 MG PO; -ZESTRIL 20MG TA20 MG PO
== END ==
LOC: COL.PUL 10:58
DX: I07.1 Rheumatic tricuspid insufficiency (principal); I27.20 Pulmonary hypertension, unspecified; Z95.2 Presence of prosthetic heart valve; Z87.09 Personal history of other diseases of the respiratory system

== ENCOUNTER → 2021-10-19 | Outpatient (CLI) | payer MEDICARE, MEDICAID ==
[~2021-10-19] MED LIST changes: +ARICEPT10 MG PO; +ARTIFICIAL TEAR15 M7 OP; +CALCIUM-500 5001 CTB PO; +DULCOLAX STOOL100 MG PO; +FERROUS GL325 MG/TAB PO; +IMODIUM 2MG CAPS2 MG PO; +LASIX 40MG TABL40 MG PO; +MIRALAX PA17 GM/Dose PO; +NORVASC 10MG10 MG PO; +PROAIR DIGIHAL90 MCG IH; +REFRESH CELLUVI1 SOL OP; +ROCALTROL0.5 MCG PO; +RT ADVAIR 528 DISKUS IH; +RT SPIRIVA18 MCG IH; -TOPROL XL 25MG25 MG; +TOPROL XL 25MG25 MG PO; +VITAMIN C500 MG PO; +ZEBETA10 MG PO; +ZESTRIL 20MG TA20 MG PO
[2021-10-19 12:11] LABS: ALBUMIN 3.5 gm/dL (3.4-4.8); BILIRUBIN,TOTAL 0.6 mg/dL (0.2-1.2); CALCIUM 8.2 mg/dL (8.4-10.2); CREATININE, serum 0.95 mg/dL (0.72-1.25); POTASSIUM 4.7 mmol/L (3.5-4.5); TOTAL PROTEIN 6.2 gm/dL (6.2-8.1)
== END ==
LOC: ZCOL.LAB 11:39
PROVIDERS: Internal Medicine
DX: I50.23 Acute on chronic systolic (congestive) heart failure (principal)

== ENCOUNTER → 2021-11-02 | Outpatient (CLI) | payer MEDICARE, MEDICAID ==
[~2021-11-02] MED LIST changes: -FERROUS GL325 MG/TAB PO; +FERROUS SU325 MG/TAB PO
[2021-11-02 21:11] LABS: COLLECTION METHOD CLEAN CATCH
[2021-11-02 21:19] LABS: MUCOUS Present (NOT PRESENT); PH 5 (5-8); SQUAMOUS EPITHELIAL 0-2 /hpf (0-10); URINE APPEARANCE Cloudy (CLEAR/HAZY); URINE BACTERIA Many /hpf (NONE SEEN); URINE BILIRUBIN Negative (NEGATIVE); URINE BLOOD Negative (NEGATIVE); URINE COLOR Amber (YELLOW); URINE GLUCOSE Negative (NEGATIVE); URINE KETONE Trace (NEGATIVE); URINE LEUKOCYTE ESTERASE Trace (NEGATIVE); URINE NITRATE Negative (NEGATIVE); URINE PROTEIN(semi-quant) 2+ (NEGATIVE); URINE UROBILINOGEN Negative (NEGATIVE)
== END ==
LOC: ZCOL.LAB 20:00
PROVIDERS: Nurse Practitioner
DX: R14.0 Abdominal distension (gaseous) (principal)

== ENCOUNTER 2021-11-11 23:19 | Inpatient (IN) | payer MEDICARE, MEDICAID ==
[~2021-11-11] VITALS: Ht 185.4 cm; Wt 112.1 kg
[~2021-11-11 23:19] MED LIST changes: -DULCOLAX STOOL100 MG PO; -LASIX 40MG TABL40 MG PO; -REFRESH CELLUVI1 SOL OP; -RT ADVAIR 528 DISKUS IH; -ZESTRIL 20MG TA20 MG PO
[2021-11-11 23:45] LABS: BASO # 0.1 K/mm3 (0.0-0.2); BASO % 1.6 % (0.0-2.0); EOS # 0.2 K/mm3 (0.0-0.7); GRAN % 73.1 % (42.2-75.2); LYMPH # 0.8 K/mm3 (1.2-3.4); LYMPH % 9.8 % (20.0-51.0); MEAN CELL VOLUME 81 fl (80.0-100.0); MEAN CORPUSCULAR HGB CONC 29 g/dl (33.0-37.0); MEAN PLATELET VOLUME 10.2 fl (7.4-10.4); MONO # 1.1 K/mm3 (0.1-0.6); MONO % 12.9 % (1.7-9.3); PLATELET COUNT 282 K/mm3 (130-400); REDCELL DISTRIBUTION WIDTH-CV 18.9 % (11.5-14.5)
[2021-11-11 23:58] LABS: HEMOGLOBIN 7.4 g/dl (13.5-18.0); MEAN CORPUSCULAR HEMOGLOBIN 23 pg (27-31)
[2021-11-11 23:59] LABS: ALBUMIN 3.5 gm/dL (3.4-4.8); BILIRUBIN,TOTAL 0.4 mg/dL (0.2-1.2); CREATININE, serum 1.27 mg/dL (0.72-1.25); POTASSIUM 4.8 mmol/L (3.5-4.5); TOTAL PROTEIN 6.4 gm/dL (6.2-8.1)
[2021-11-12 00:01] LABS: RED BLOOD COUNT 3.21 M/mm3 (4.20-5.60)
[2021-11-12 01:45] LABS: COLLECTION METHOD CLEAN CATCH
[2021-11-12 01:52] LABS: MUCOUS Present (NOT PRESENT); PH 5 (5-8); SQUAMOUS EPITHELIAL None Seen /hpf (0-10); URINE APPEARANCE Clear (CLEAR/HAZY); URINE BACTERIA Rare /hpf (NONE SEEN); URINE BILIRUBIN Negative (NEGATIVE); URINE BLOOD Negative (NEGATIVE); URINE COLOR Yellow (YELLOW); URINE GLUCOSE Negative (NEGATIVE); URINE KETONE Negative (NEGATIVE); URINE LEUKOCYTE ESTERASE Negative (NEGATIVE); URINE NITRATE Negative (NEGATIVE); URINE PROTEIN(semi-quant) 2+ (NEGATIVE); URINE RBC 0-2 /hpf (0-2); URINE UROBILINOGEN Negative (NEGATIVE)
[2021-11-12 02:28] LABS: C-REACTIVE PROTEIN 1.44 mg/dL (0.00-0.50); MAGNESIUM 1.7 mg/dL (1.6-2.6); PHOSPHOROUS 4.2 mg/dL (2.3-4.7)
--- NOTE | 2021-11-12 02:45 | NUR ---
PT BROUGHT UP FROM ED.
[2021-11-12 02:48] LABS: THYROID STIMULATING HORMONE 1.298 uIU/mL (0.350-4.940); TROPONIN-I 0.015 ng/mL (0.00-0.033)
[2021-11-12 02:52] VITALS: BP 139/75; PULSE 71; TEMP 98.4
[2021-11-12] MEDS ORDERED: REFRESH CELLUVI1 SOL OP (03:33)
[2021-11-12] MEDS ORDERED: DULCOLAX S10 MG/SUPP RC (03:43)
[2021-11-12] MEDS ORDERED: PROAIR HFA0.09 MG/AC IH (03:45)
[2021-11-12] MEDS ORDERED: GLUCOPHAGE1000 MG PO (03:49)
[2021-11-12] MEDS ORDERED: DULCOLAX STOOL100 MG PO (03:55)
[2021-11-12] MEDS ORDERED: RT ADVAIR 528 DISKUS IH (03:58)
--- NOTE | 2021-11-12 04:36 | NUR ---
Pt transferred from ED to pt room. Pt was able to stand and pivot from wheelchair to bed with a 2 assist. Weak ambulation. Pt alert and oriented. Pt denies chest pain or SOB. RR is around 20-22 and shallow, but pt is not SOB or gasping for air. Pt VS WNL, on 2L NC satting in upper 90's. FSBS 94 when assessed on floor. Admission assessment and admission intake completed. Allx reviewed. Med rx completed and reviewed. COVID and infectious disease screenings completed. Lung sounds are clear, but diminished. Auscultated a rhonchi-like sound in the upper lobes. No signigicant skin issues noted, besides some generalized bruising/scabbing. Pt has 3+ edema in the BLE, 1+ in the BUE, and generalized anasarca. No weeping noted. Pt reports he has gained a lot of weight in a short period of time. I spoke with [facility] and they were able to list out the pt weights from 10/31-11/11. On 10/31 the pt weighed 249 lbs and by 11/11 the pt weighed 263.8 lbs. Pt's baseline is room air. Pt had garcia catheter placed in ED. 600 ml was emptied when pt was brought to unit. Monitoring I&O and enforcing a 1500 ml fluid restriction. Educated pt on fluid restriction. GI panel is uncollected until pt has BM. Pt is calm and cooperative. Tolerating PO. Will call pt's family this morning to see if someone can bring in his CPAP. Will also call cardiology consult this a.m. Pt reports no questions at this time, will continue to monitor.
--- NOTE | 2021-11-12 06:17 | NUR ---
Made phone call to on-call cashier wrapper about consult. Provider did not answer and does not have a voicemail box set up, so I was unable to leave a message. Will attempt to call again or notify dayshift to call in the consult.
[2021-11-12 06:44] LABS: TROPONIN-I 0.013 ng/mL (0.00-0.033)
[2021-11-12 08:00] VITALS: BP 134/85; PULSE 66; TEMP 97.6
--- NOTE | 2021-11-12 10:11 | NUR ---
Initial visit; Patient thanked Field Horticultural Specialty Grower for looking in on him and offering God's blessings.
--- NOTE | 2021-11-12 10:28 | NUR ---
PT SITTING UP ON EDGE OF BED. MORNING MEDICATIONS GIVEN. SHIFT ASSESSMENT COMPLETED. PT REPORTS FEELING SOB. CURRENTLY ON 2L VIA NC, BASELINE OF ROOM AIR AT HOME. ABDOMEN DISTENDED AND FIRM. DENIES ANY NEEDS. WILL CONTINUE TO MONITOR.
--- NOTE | 2021-11-12 10:57 | NUR ---
Mobile Homes Repairer met with patient to discuss discharge planning. Patient lives at [facility] and sees Dr. Gray for primary care. Patient reports that he uses a wheelchair for ambulation and also receives assistance with ADLS from staff at [facility]. Patient has Advance Directives in EMR which designate his brother, Lon (ph#[phone]) as DPOA-HC. Patient plans to return to [facility] at time of discharge. RENEA contacted Lon and left a message. RENEA then contacted Esa at [facility] and faxed clinical updates. Discharge Plan: Return to [facility]
[2021-11-12 11:47] VITALS: BP 121/71; PULSE 64; TEMP 98.4
[2021-11-12 13:29] LABS: TROPONIN-I 0.014 ng/mL (0.00-0.033)
[2021-11-12 15:40] VITALS: BP 110/62; PULSE 65; TEMP 98
[2021-11-12 21:02] VITALS: BP 108/70; PULSE 88; TEMP 98.3
--- NOTE | 2021-11-12 23:46 | NUR ---
Pt alert and oriented this evening, resting in bed. Denies pain or chest pain. Pt does not appear to be SOB. Stated he felt like he was having difficulty breathing. home care assistant moved pt up in bed and repositioned him. I sat the pt's HOB up high and he reported relief. I increased the pt's oxygen to 3L NC and he was satting well at 97-99%. No diaphoresis or labored breathing noted. Pt has shallow respirations but at a 18-20 rate. Pt reported relief of SOB after repositioning, no complaints since. Shift assessment performed. Medications administered per orders and education provided. Lung sounds are clear, with some rhonchi noted in the upper lobes. Pt has a non-productive cough. Tolerates PO pills and fluids. Continuing to closely monitor I&O and enforce 1500 fl restiction. Pt will be NPO 0000. 3+ edema noted in the BLE. Generalized edema noted. Abdomen is distended and hard. Pt later reported some pain in his legs, I administered prn tylenol and pt reported relief. Pt reports no questions at this time, will continue to monitor.
[2021-11-13] VITALS (11 sets, daily range): BP systolic 104–121; BP diastolic 59–83; PULSE 59–68; TEMP 97.8–99.2
--- NOTE | 2021-11-13 05:02 | NUR ---
Titrated pt back down to 2L NC. Pt satting well at 94%.
--- NOTE | 2021-11-13 05:37 | NUR ---
No adverse events overnight. Pt resting quietly. Denies pain/SOB. Satting in 90's on 2L NC. VS stable. 1,450 ml emptied from garcia catheter overnight. Generalized edema remains in the extremities. 3+ in the BLE. 200 ml taken in before midnight. Pt has been NPO since 0000. Pt reports no questions at this time, will continue to monitor.
[2021-11-13 06:20] LABS: BASO # 0.1 K/mm3 (0.0-0.2); BASO % 1.3 % (0.0-2.0); EOS # 0.1 K/mm3 (0.0-0.7); EOS % 1.3 % (0.0-4.0); GRAN % 72.1 % (42.2-75.2); LYMPH # 0.8 K/mm3 (1.2-3.4); LYMPH % 12.1 % (20.0-51.0); MEAN CELL VOLUME 82 fl (80.0-100.0); MEAN CORPUSCULAR HGB CONC 29 g/dl (33.0-37.0); MEAN PLATELET VOLUME 9.9 fl (7.4-10.4); MONO # 0.9 K/mm3 (0.1-0.6); MONO % 12.6 % (1.7-9.3); PLATELET COUNT 254 K/mm3 (130-400); RED BLOOD COUNT 2.97 M/mm3 (4.20-5.60); REDCELL DISTRIBUTION WIDTH-CV 18.9 % (11.5-14.5)
[2021-11-13 06:30] LABS: HEMATOCRIT 24.2 % (42.0-52.0); MEAN CORPUSCULAR HEMOGLOBIN 23 pg (27-31)
[2021-11-13 06:31] LABS: HEMOGLOBIN 6.9 g/dl (13.5-18.0)
[2021-11-13 06:34] LABS: CALCIUM 8.6 mg/dL (8.4-10.2); CHOLESTEROL RISK RATIO 2.5; CREATININE, serum 1.31 mg/dL (0.72-1.25); POTASSIUM 4.1 mmol/L (3.5-4.5)
--- NOTE | 2021-11-13 06:37 | NUR ---
Lab notified me of a critical hgb value of 6.9. Attempted to notify the on-call provider. Provider did not answer, but I left a message with the value and my call back number. Will pass the value on to dayshift.
--- NOTE | 2021-11-13 06:41 | NUR ---
Provider called me back and notified me he recieved the value. No changes at this time.
--- NOTE | 2021-11-13 11:27 | NUR ---
RENEA confirmed with Esa at [facility] that the patient is a long-term care resident with them. RENEA faxed updates to [facility].
--- NOTE | 2021-11-13 18:00 | NUR ---
Shift assessment performed. Scheduled medications given. Patient currently on 2L of O2 via nasal cannula. Denies any pain, discomfort, or SOA. ABD firm and distended. Hernia noted. 1 unit being transfused for HGB of 6.9. Dynamap attached for transfusion vitals. vitals have remained stable through transfusion. Patient A&O. Call light in reach. Fall percautions in place. De catheter in place. Securment device in use. No kinks in tubing. Patient on contact percautions for yersinia in stool. Has not had stool of any kind this shift.
--- NOTE | 2021-11-13 20:21 | NUR ---
Blood completed- tolerated well, no s/s adverse reactions, alert/pleasant, denies pain, tele on, NSR, De bag leaking- switched out for new drainage bag,o2 at 2L/nc, denies SOB, no requests.
[2021-11-13 22:07] LABS: HEMATOCRIT 27.5 % (42.0-52.0); HEMOGLOBIN 8.1 g/dl (13.5-18.0)
[2021-11-14 00:15] VITALS: BP 119/57; PULSE 69; TEMP 99
[2021-11-14 04:48] VITALS: BP 109/69; PULSE 68; TEMP 98.4
--- NOTE | 2021-11-14 06:03 | NUR ---
Up to BSC with 2 assists- had a large soft formed brown stool-- back to bed, states he feels much better now,,back to sleep within minutes-VSS
[2021-11-14 06:48] LABS: BASO # 0.1 K/mm3 (0.0-0.2); BASO % 0.9 % (0.0-2.0); EOS # 0.1 K/mm3 (0.0-0.7); EOS % 1.4 % (0.0-4.0); GRAN # 5.9 K/mm3 (1.4-6.5); GRAN % 76.1 % (42.2-75.2); LYMPH # 0.8 K/mm3 (1.2-3.4); MEAN CELL VOLUME 80 fl (80.0-100.0); MEAN CORPUSCULAR HGB CONC 30 g/dl (33.0-37.0); MEAN PLATELET VOLUME 9.5 fl (7.4-10.4); MONO # 0.9 K/mm3 (0.1-0.6); MONO % 11.2 % (1.7-9.3); PLATELET COUNT 253 K/mm3 (130-400); RED BLOOD COUNT 3.34 M/mm3 (4.20-5.60); REDCELL DISTRIBUTION WIDTH-CV 18.8 % (11.5-14.5)
[2021-11-14 07:07] LABS: CALCIUM 9.1 mg/dL (8.4-10.2); CREATININE, serum 1.28 mg/dL (0.72-1.25)
[2021-11-14 07:11] LABS: HEMATOCRIT 26.8 % (42.0-52.0); HEMOGLOBIN 7.9 g/dl (13.5-18.0); MEAN CORPUSCULAR HEMOGLOBIN 24 pg (27-31)
[2021-11-14 12:12] VITALS: BP 110/64; PULSE 56; TEMP 98.3
[2021-11-14 16:00] VITALS: BP 1128/64; PULSE 75; TEMP 98.2
[2021-11-14 20:14] VITALS: BP 109/69; PULSE 61; TEMP 98.2
--- NOTE | 2021-11-14 20:30 | NUR ---
Initial shift assessment done- has been up in recliner- now back to bed, Tele on, De with clear su colred urine, denies pain at this time- states feeling pretty good tonight- o2 at 2L/nc, denies any SOB
[2021-11-14 23:31] VITALS: BP 108/68; PULSE 59; TEMP 97.9
[2021-11-15 03:32] VITALS: BP 117/65; PULSE 63; TEMP 97.5
--- NOTE | 2021-11-15 05:58 | NUR ---
Quiet night- has been sleeping well all night- o2 at 2L/nc, sats 94-95%.
[2021-11-15 07:06] LABS: CALCIUM 8.5 mg/dL (8.4-10.2); CREATININE, serum 1.31 mg/dL (0.72-1.25); MAGNESIUM 1.7 mg/dL (1.6-2.6); POTASSIUM 3.9 mmol/L (3.5-4.5)
[2021-11-15 07:07] LABS: BASO # 0.1 K/mm3 (0.0-0.2); EOS # 0.2 K/mm3 (0.0-0.7); EOS % 2.5 % (0.0-4.0); GRAN % 72.8 % (42.2-75.2); LYMPH # 0.8 K/mm3 (1.2-3.4); LYMPH % 11.1 % (20.0-51.0); MEAN CELL VOLUME 83 fl (80.0-100.0); MEAN CORPUSCULAR HGB CONC 29 g/dl (33.0-37.0); MEAN PLATELET VOLUME 9.9 fl (7.4-10.4); MONO # 0.8 K/mm3 (0.1-0.6); PLATELET COUNT 242 K/mm3 (130-400); RED BLOOD COUNT 3.38 M/mm3 (4.20-5.60); REDCELL DISTRIBUTION WIDTH-CV 19.2 % (11.5-14.5)
[2021-11-15 07:36] LABS: HEMATOCRIT 28.2 % (42.0-52.0); HEMOGLOBIN 8.1 g/dl (13.5-18.0); MEAN CORPUSCULAR HEMOGLOBIN 24 pg (27-31)
[2021-11-15 08:48] VITALS: BP 110/67; PULSE 65; TEMP 97.7
--- NOTE | 2021-11-15 11:19 | NUR ---
Scheduled medications given. Shift assessment performed. Patient currently requiring 2L of O2 via nasal cannula. VSS. Patient A&O. Patient abd is distended an firm. Hernia noted. Bowel sounds present in all four quadrants. Patient denies any pain, discomfort, SOA, or further needs at this time. Call light in reach. Fall percautions in place.
[2021-11-15 12:29] VITALS: BP 106/71; PULSE 59; TEMP 98.5
[2021-11-15 16:00] VITALS: BP 118/73; PULSE 81; TEMP 97.9
--- NOTE | 2021-11-15 16:14 | NUR ---
Patient deemed fit for discharge. IV DC'd, catheter intact, no signs of phlebitis. Discharge education/instructions given. All questions answered. Patient verbalized an understanding of the teaching. VSS. Patient A&O. Home O2 set up. Patient denies any further pain, discomfort, SOA, or further needs at this time. Patient escorted from building via wheelchair, by [facility] Staff. [employer] transporting home.
--- NOTE | 2021-11-15 17:33 | NUR ---
Patient has had an ok day. Currently on RA. Denies any pain, discomfort, SOA, or further needs at this time. VSS. Patient A&O. Call light in reach. Fall percautions in place.
[2021-11-15 20:07] VITALS: BP 119/71; PULSE 62; TEMP 98.6
--- NOTE | 2021-11-15 22:41 | NUR ---
Pt alert and oriented, resting in bed. Calm and cooperative. No pain reported. Denies chest pain or feeling SOB. Shift assessment performed. Medications administered per orders and education provided. Pt has been titrated to room air and is satting in the 90's. Lung sounds are diminshed and clear. Pt does have shallow respirations at rest running from 18-20. HR WNL. NSR. 2-3+ edema noted in the BLE. Generalized edema noted as well, but appears to have decreased from admission. Continuing to monitor I&O and enforcing a 1500 fluid restriction. Pt tolerated medications PO. Monitoring garcia catheter for output. Pt has a non-productive cough. Pt continues on lasix BID. Pt reports no questions at this time, will continue to monitor.
[2021-11-15 23:28] VITALS: BP 117/72; PULSE 108; TEMP 98
[2021-11-16 03:30] VITALS: BP 126/71; PULSE 63; TEMP 97.8
--- NOTE | 2021-11-16 05:19 | NUR ---
No adverse events overnight. No reports no chest pain or SOB by pt. Remains on room air satting in 90's. VS remain stable. Adequate garcia output noted. Continuing to enforce 1500 fluid restriction. Pt tolerated PO with no choking/coughing/aspiration. Pt resting currently. No new concerns at this time, will continue to monitor.
[2021-11-16 06:46] LABS: BASO # 0.1 K/mm3 (0.0-0.2); BASO % 1.1 % (0.0-2.0); EOS # 0.2 K/mm3 (0.0-0.7); EOS % 2.6 % (0.0-4.0); GRAN # 5.5 K/mm3 (1.4-6.5); GRAN % 74.6 % (42.2-75.2); LYMPH # 0.7 K/mm3 (1.2-3.4); MEAN CELL VOLUME 85 fl (80.0-100.0); MEAN CORPUSCULAR HGB CONC 29 g/dl (33.0-37.0); MEAN PLATELET VOLUME 10.1 fl (7.4-10.4); MONO # 0.8 K/mm3 (0.1-0.6); MONO % 11.2 % (1.7-9.3); PLATELET COUNT 258 K/mm3 (130-400); RED BLOOD COUNT 3.49 M/mm3 (4.20-5.60); REDCELL DISTRIBUTION WIDTH-CV 19.7 % (11.5-14.5)
[2021-11-16 06:48] LABS: HEMATOCRIT 29.6 % (42.0-52.0); HEMOGLOBIN 8.5 g/dl (13.5-18.0); MEAN CORPUSCULAR HEMOGLOBIN 24 pg (27-31)
[2021-11-16 07:04] LABS: CREATININE, serum 1.22 mg/dL (0.72-1.25); POTASSIUM 4.2 mmol/L (3.5-4.5)
[2021-11-16 08:26] VITALS: BP 120/69; PULSE 64; TEMP 98.2
--- NOTE | 2021-11-16 10:23 | NUR ---
PT SITIING UP IN RECLINER. MORNING MEDICATIONS GIVEN. SHIFT ASSESSMENT COMPLETED. PT REPORTS HIS BREATHING FEELS IMPROVED, CURRENTLY ON ROOM AIR. ABDOMEN IS FIRM, PT DENIES ABDOMINAL PAIN, PT REPORTS HAVING REGULAR BOWEL MOVEMENTS. BLE EDEMA NOTED. PT APPEARS PALE. WILL CONTINUE TO MONITOR.
--- NOTE | 2021-11-16 11:13 | NUR ---
SW informed that patient would potentially be discharging on 11-17-2021. Updates faxed to [facility] to review. SW will continue to follow.
[2021-11-16] MEDS ORDERED: TOPROL XL 25MG25 MG PO (11:58)
[2021-11-16] MEDS ORDERED: ZESTRIL 20MG TA20 MG PO (11:58)
[2021-11-16] MEDS ORDERED: LASIX 40MG TABL40 MG PO (11:59)
[2021-11-16 12:00] VITALS: BP 106/71; PULSE 60; TEMP 98.1
--- NOTE | 2021-11-16 13:33 | NUR ---
IV D/C. TELE D/C. JOHNNY D/C. BELONGINGS PACKED UP. WAITING FOR TRANSPORTATION TO ARRIVE.
--- NOTE | 2021-11-16 14:37 | NUR ---
REPORT CALLED TO RN AT [facility].
--- NOTE | 2021-11-16 14:38 | NUR ---
PT ESCORTED DOWN WITH TRANSPORTATION. WILL D/C FROM SYSTEM.
== END 2021-11-16 14:38 | DRG 291 ==
LOC: COL.ER 23:19 → MEDICAL 11-12 01:21
PROVIDERS: Emergency Medicine; Nurse Practitioner Family; Student in an Organized Health Care Education/Training Program; ADMIT Internal Medicine
DX: I13.0 Hypertensive heart and chronic kidney disease with heart failure and stage 1 through stage 4 chronic kidney disease, or unspecified chronic kidney disease (principal); J96.01 Acute respiratory failure with hypoxia; I50.31 Acute diastolic (congestive) heart failure; E87.2 Acidosis; A04.6 Enteritis due to Yersinia enterocolitica; I27.20 Pulmonary hypertension, unspecified; I25.10 Atherosclerotic heart disease of native coronary artery without angina pectoris; F32.A Depression, unspecified; E78.5 Hyperlipidemia, unspecified; G47.33 Obstructive sleep apnea (adult) (pediatric); E11.22 Type 2 diabetes mellitus with diabetic chronic kidney disease; N18.9 Chronic kidney disease, unspecified; D64.9 Anemia, unspecified; K21.9 Gastro-esophageal reflux disease without esophagitis; E66.9 Obesity, unspecified; F03.90 Unspecified dementia, unspecified severity, without behavioral disturbance, psychotic disturbance, mood disturbance, and anxiety; J44.9 Chronic obstructive pulmonary disease, unspecified; E87.5 Hyperkalemia; E87.8 Other disorders of electrolyte and fluid balance, not elsewhere classified; G72.9 Myopathy, unspecified; I48.0 Paroxysmal atrial fibrillation; I08.2 Rheumatic disorders of both aortic and tricuspid valves; Z95.0 Presence of cardiac pacemaker; Z86.018 Personal history of other benign neoplasm; Z79.84 Long term (current) use of oral hypoglycemic drugs; Z79.82 Long term (current) use of aspirin; Z95.2 Presence of prosthetic heart valve; Z99.3 Dependence on wheelchair; Z68.34 Body mass index [BMI] 34.0-34.9, adult
CPT/HCPCS: 99223-AI; 99232-AI; 99233-AI; 99239; A4314; J1650; J1815; J1940; P9016

== ENCOUNTER 2021-11-13 14:00 | Outpatient (RCR) | payer MEDICARE, MEDICAID ==
[2021-11-09 14:19] VITALS: BP 135/86; PULSE 60; TEMP 98.7
[2021-11-11 14:16] VITALS: BP 107/76; PULSE 60; TEMP 98.7
[~2021-11-13 14:00] MED LIST changes: +DULCOLAX STOOL100 MG PO; +REFRESH CELLUVI1 SOL OP; +RT ADVAIR 528 DISKUS IH
--- NOTE | 2021-11-13 16:35 | NUR ---
Pt did not show for apt today.pt was admitted to hospitl for inpt admission.
--- NOTE | 2021-11-13 16:38 | NUR ---
Spoke with Angelica,nurse at [facility].Pt admitted as inpt and will need new orders for outpt visits to continue iron after discharge.Per nurse she will contact office.
== END 2021-11-13 16:36 ==
LOC: EUO 14:00
DX: E61.1 Iron deficiency (principal)
CPT/HCPCS: J1756

== ENCOUNTER → 2021-11-24 | Outpatient (RCR) | payer MEDICARE, MEDICAID ==
[2021-11-20 14:22] VITALS: BP 123/60; PULSE 61; TEMP 99.3
[~2021-11-24] VITALS: Ht 185.4 cm; Wt 126.2 kg
[~2021-11-24] MED LIST changes: +GENTLE LAXATIVE10 MG RC; +INCRUSE EL62.5 MCG/A IH; +LASIX 40MG TABL40 MG PO; +OPTIVE SENSITI0.4 ML OP; +PROBIOTIC BLEN1 EACH PO; +VITAMIND3 5000 PO; +ZESTRIL 20MG TA20 MG PO
[2021-11-24 14:44] VITALS: BP 114/66; PULSE 60; TEMP 98.9
--- NOTE | 2021-11-24 15:00 | NUR ---
Pt tolerated infusion without complication. Pt escorted to exit via wheelchair by staff.
== END ==
LOC: EUO
DX: E61.1 Iron deficiency (principal)
CPT/HCPCS: J1756

== ENCOUNTER 2021-11-26 13:45 | Outpatient (RCR) | payer MEDICARE, MEDICAID ==
[~2021-11-26] VITALS: Ht 185.4 cm; Wt 106.0 kg
[~2021-11-26 13:45] MED LIST changes: -GENTLE LAXATIVE10 MG RC; -INCRUSE EL62.5 MCG/A IH; -OPTIVE SENSITI0.4 ML OP; -PROBIOTIC BLEN1 EACH PO; -VITAMIND3 5000 PO
[2021-11-26 14:04] VITALS: BP 116/66; PULSE 87; TEMP 98.6
[2021-11-26] MEDS ORDERED: LIPITOR20 MG PO (15:27)
[2021-11-26] MEDS ORDERED: VITAMIND3 5000 PO (15:32)
[2021-11-26] MEDS ORDERED: INCRUSE EL62.5 MCG/A IH (15:38)
[2021-11-30] MEDS ORDERED: MELATIN 3 MG-11 TAB PO (03:33)
[2021-11-30] MEDS ORDERED: VITAMIND3 5000 PO (03:34)
[2021-11-30] MEDS ORDERED: APRESOLINE 25MG25 MG PO (03:34)
[2021-11-30] MEDS ORDERED: GENTLE LAXATIVE10 MG RC (03:35)
[2021-11-30] MEDS ORDERED: OPTIVE SENSITI0.4 ML OP (03:35)
[2021-11-30] MEDS ORDERED: INCRUSE EL62.5 MCG/A IH (04:38)
[2021-11-30] MEDS ORDERED: RT ADVAIR 528 DISKUS IH (04:38)
[2021-11-30] MEDS ORDERED: PROBIOTIC BLEN1 EACH PO (04:38)
[2021-11-30] MEDS ORDERED: PROAIR HFA0.09 MG/AC IH (04:39)
[2021-11-30] MEDS ORDERED: FERROUSAL325 MG PO (04:39)
== END 2021-11-26 14:30 ==
LOC: EUO 13:45
DX: E61.1 Iron deficiency (principal)
CPT/HCPCS: J1756

== ENCOUNTER 2021-12-16 08:24 | Day surgery (SDC) | payer MEDICARE, MEDICAID ==
[~2021-12-16] VITALS: Ht 185.4 cm; Wt 109.1 kg
[~2021-12-16 08:24] MED LIST changes: +GENTLE LAXATIVE10 MG RC; +INCRUSE EL62.5 MCG/A IH; +OPTIVE SENSITI0.4 ML OP; +PROBIOTIC BLEN1 EACH PO; +VITAMIND3 5000 PO
[2021-12-16 10:34] VITALS: BP 155/91; PULSE 62; TEMP 97.2
[2021-12-16 10:40] VITALS: BP 131/83; PULSE 61; TEMP 97.6
[2021-12-16 10:55] VITALS: BP 151/83; PULSE 59
[2021-12-16] MEDS ORDERED: PROTONIX 40MG T40 MG PO (11:04)
[2021-12-16] MEDS ORDERED: ZESTRIL 20MG TA20 MG PO (11:06)
[2021-12-16 11:10] VITALS: BP 155/90; PULSE 60
--- NOTE | 2021-12-16 11:33 | NUR ---
1040 - PT arrives from procedure, drowsy but oriented. Cart brought into room to maintain PT comfort. Monitors applied and vitals obtained. PT denies nasuea. NO vomiting. PT assisted with repositioning in bed 2:1. PT provided buttered toast with grape juice and ice water. PT oriented to room and call lilly, within reach. 1055 - Vitals obtained. PT expressed desire to be discharged. Call lilly remains within reach. PT was assisted changing into personal clothes by Mireya ALBERT. PT then assisted to wheelchair 2:1 stand and pivot. IV discontinued. Catheter tip intact. Pressure bandage applied. Call lilly remains within reach. 1110 - Vitals obtained. PO medication administed. PT states "feeling well. Better than before". DC instructions and educational material reviewed with the PT who verbalized understanding and signed the related paperwork. Questions answered to PT satisfaction. Call lilly remains within reach. 1135 - Transport brought into the unit to assisted with dismissal.
--- NOTE | 2021-12-16 11:45 | NUR ---
PT dismissed from endo via wheelchair to the PT entrence by Katey ALBERT and was transferred into the care of transport, who is driving car to [facility]. PT has DC packet and personal belongings.
== END 2021-12-16 11:45 | disposition home or self-care (01) ==
LOC: SDCO 08:24
DX: K20.90 Esophagitis, unspecified without bleeding (principal); K25.9 Gastric ulcer, unspecified as acute or chronic, without hemorrhage or perforation; D50.9 Iron deficiency anemia, unspecified; K22.89 Other specified disease of esophagus; K57.30 Diverticulosis of large intestine without perforation or abscess without bleeding; Z87.891 Personal history of nicotine dependence
CPT/HCPCS: J2704; J3010; J7030

== ENCOUNTER → 2021-12-18 | Outpatient (CLI) | payer MEDICARE, MEDICAID ==
[~2021-12-18] MED LIST changes: +PROTONIX 40MG T40 MG PO
[2021-12-18 20:07] LABS: BASO # 0.1 K/mm3 (0.0-0.2); BASO % 1.6 % (0.0-2.0); EOS # 0.1 K/mm3 (0.0-0.7); EOS % 1.6 % (0.0-4.0); GRAN # 5.2 K/mm3 (1.4-6.5); GRAN % 75.7 % (42.2-75.2); LYMPH # 0.9 K/mm3 (1.2-3.4); LYMPH % 13.7 % (20.0-51.0); MEAN CELL VOLUME 86 fl (80.0-100.0); MEAN CORPUSCULAR HGB CONC 30 g/dl (33.0-37.0); MEAN PLATELET VOLUME 10.8 fl (7.4-10.4); MONO # 0.5 K/mm3 (0.1-0.6); PLATELET COUNT 166 K/mm3 (130-400); RED BLOOD COUNT 3.65 M/mm3 (4.20-5.60); REDCELL DISTRIBUTION WIDTH-CV 22.2 % (11.5-14.5)
[2021-12-18 20:08] LABS: HEMATOCRIT 31.2 % (42.0-52.0); HEMOGLOBIN 9.2 g/dl (13.5-18.0); MEAN CORPUSCULAR HEMOGLOBIN 25 pg (27-31)
== END ==
LOC: ZLAB.STJ 16:36
PROVIDERS: Internal Medicine
DX: N18.9 Chronic kidney disease, unspecified (principal); D50.9 Iron deficiency anemia, unspecified; D63.1 Anemia in chronic kidney disease

== ENCOUNTER → 2021-12-21 | Outpatient (CLI) | payer MEDICARE, MEDICAID ==
[2021-12-21 12:37] LABS: ALBUMIN 3.8 gm/dL (3.4-4.8); BILIRUBIN,TOTAL 0.5 mg/dL (0.2-1.2); CALCIUM 8.9 mg/dL (8.4-10.2); CREATININE, serum 1.21 mg/dL (0.72-1.25); POTASSIUM 4.7 mmol/L (3.5-4.5); TOTAL PROTEIN 7.2 gm/dL (6.2-8.1)
== END ==
LOC: ZLAB.STJ 09:56
PROVIDERS: Internal Medicine
DX: Z13.228 Encounter for screening for other metabolic disorders (principal); D51.9 Vitamin B12 deficiency anemia, unspecified

== ENCOUNTER 2022-01-26 10:04 | Inpatient (IN) | payer MEDICARE, MEDICAID ==
[2022-01-26] VITALS (15 sets, daily range): BP systolic 81–116; BP diastolic 43–60; PULSE 60–71; TEMP 97.3–97.7
[~2022-01-26] VITALS: Ht 185.4 cm; Wt 93.0 kg
[~2022-01-26 10:04] MED LIST changes: +CALCIUM 600MG+D1 TAB PO; -CALCIUM-500 5001 CTB PO
[2022-01-26 11:15] LABS: BASO # 0.1 K/mm3 (0.0-0.2); BASO % 0.9 % (0.0-2.0); EOS # 0.1 K/mm3 (0.0-0.7); EOS % 2.1 % (0.0-4.0); GRAN % 73.4 % (42.2-75.2); HEMOGLOBIN 10.1 g/dl (13.5-18.0); LYMPH # 0.9 K/mm3 (1.2-3.4); LYMPH % 13.6 % (20.0-51.0); MEAN CELL VOLUME 84 fl (80.0-100.0); MEAN CORPUSCULAR HEMOGLOBIN 26 pg (27-31); MEAN CORPUSCULAR HGB CONC 31 g/dl (33.0-37.0); MEAN PLATELET VOLUME 10.2 fl (7.4-10.4); MONO # 0.6 K/mm3 (0.1-0.6); MONO % 9.3 % (1.7-9.3); PLATELET COUNT 200 K/mm3 (130-400); RED BLOOD COUNT 3.91 M/mm3 (4.20-5.60); REDCELL DISTRIBUTION WIDTH-CV 22.7 % (11.5-14.5)
[2022-01-26 11:17] LABS: HEMATOCRIT 32.7 % (42.0-52.0)
[2022-01-26] MEDS ORDERED: COLACE 100100 MG/CAP PO (11:18)
[2022-01-26] MEDS ORDERED: PROBIOTIC GOLD1 EACH PO (11:19)
[2022-01-26 11:21] LABS: INR 1.1 (0.8-3.0)
[2022-01-26] MEDS ORDERED: B-12 500 MCG PO (11:23)
--- NOTE | 2022-01-26 11:24 | NUR ---
RXM updated per list sent from [facility]. Last date and times of med administration was not listed on paperwork, and pt is unsure of exact times. He is able to report that no meds were given today, and he thinks all of his regular meds were given yesterday like usual. He states nothing by mouth since dinner around 1800 last night. He is resting comfortably in bed. Call light in reach.
[2022-01-26 11:29] LABS: CALCIUM 8.6 mg/dL (8.4-10.2); CREATININE, serum 3.36 mg/dL (0.72-1.25)
--- NOTE | 2022-01-26 12:14 | NUR ---
SEE MERGE FOR ALL MEDICATION ADMINISTRATION TIMES, INTRA AND POST SEDATION ASSESSMENTS
[2022-01-26 15:10] LABS: COLLECTION METHOD CLEAN CATCH
[2022-01-26 15:17] LABS: MUCOUS Present (NOT PRESENT); PH 5 (5-8); SQUAMOUS EPITHELIAL 0-2 /hpf (0-10); URINE APPEARANCE Hazy (CLEAR/HAZY); URINE BACTERIA None Seen /hpf (NONE SEEN); URINE BLOOD Negative (NEGATIVE); URINE COLOR Yellow (YELLOW); URINE GLUCOSE Negative (NEGATIVE); URINE KETONE Negative (NEGATIVE); URINE NITRATE Negative (NEGATIVE); URINE PROTEIN(semi-quant) 1+ (NEGATIVE); URINE RBC 0-2 /hpf (0-2); URINE UROBILINOGEN Negative (NEGATIVE); URINE WBC 0-2 /hpf (0-2)
--- NOTE | 2022-01-26 15:38 | NUR ---
Report called to BETY Parish on medical floor. 500ml NS bolus infusing per Dr Becerra's order. Pt has eaten cup of pudding without issue, and tolerating sips of water. He has been sleeping, but wakes quickly when staff enters room. Call light in reach.
--- NOTE | 2022-01-26 16:27 | NUR ---
Nurse Jordan at [facility] notified that pt had gen change completed, but will also be staying in the hospital due to BRENT.
--- NOTE | 2022-01-26 16:45 | NUR ---
Pt taken by wheelchair to medical floor with belongings. Dressing over gen change site remains clean, dry and intact. Tape over IV site reenforced, site remains patent. 500 ml bolus ordered by Dr Becerra completed, IVF now infusing at 125 ml/hr. Pt ate meal tray without issue.
--- NOTE | 2022-01-26 18:00 | NUR ---
Patient admitted to room 359 from Express Unit at 1730. Report recieved from express unit RN. Pharmacy, allergies, and medications reviewed. Medications given as ordered. VSS. Patient A&O. Admission paperwork completed. Surgical site dressing CDI and patient denies any pain or discomfort at the site. Patient denies any further pain, discomfort, SOA, or further needs at this time. Call light in reach.
[2022-01-26 20:32] LABS: COLLECTION METHOD CATHETER
[2022-01-26 20:42] LABS: MUCOUS Present (NOT PRESENT); PH 5 (5-8); SQUAMOUS EPITHELIAL None Seen /hpf (0-10); URINE APPEARANCE Hazy (CLEAR/HAZY); URINE BACTERIA None Seen /hpf (NONE SEEN); URINE BLOOD Negative (NEGATIVE); URINE COLOR Yellow (YELLOW); URINE GLUCOSE Negative (NEGATIVE); URINE KETONE Negative (NEGATIVE); URINE NITRATE Negative (NEGATIVE); URINE PROTEIN(semi-quant) 1+ (NEGATIVE); URINE RBC 0-2 /hpf (0-2); URINE UROBILINOGEN Negative (NEGATIVE)
[2022-01-27] VITALS (9 sets, daily range): BP systolic 94–135; BP diastolic 48–100; PULSE 60–124; TEMP 97–98.4
--- NOTE | 2022-01-27 06:00 | NUR ---
BP 100/57, garcia patent/secure draining clear yellow urine, IVF infusing per PIV @ 125 cc/hr. dressing to left chest CDI. no c/o pain or discomfort
[2022-01-27 06:53] LABS: CREATININE, serum 2.78 mg/dL (0.72-1.25); MAGNESIUM 2.1 mg/dL (1.6-2.6); POTASSIUM 4.8 mmol/L (3.5-4.5)
--- NOTE | 2022-01-27 09:32 | NUR ---
PT RESTING IN BED. MORNING MEDICATIONS GIVEN. SHIFT ASSESSMENT COMPLETED. PACEMAKER INCISION SITE C/D/I. PT DENIES ANY PAIN AT THIS TIME. IVF INFUSING. TURNER DRAINING WELL. DEVICE DOWNLOAD COMPLETED. WILL CONTINUE TO MONITOR.
--- NOTE | 2022-01-27 09:58 | NUR ---
Initial visit; Patient thanked Splicer Apprentice for stopping and offering God's blessings. Patient stated he would like Splicer Apprentice to keep him in her prayers. He smiled and thanked Splicer Apprentice for coming.
--- NOTE | 2022-01-27 10:01 | NUR ---
The patient has a past medical history of dementia. RENEA attempted to contact the patient's brother/DPOA-HC, Lon (ph#[phone]), to discuss discharge plan. RENEA left him a voicemail. The patient's DPOA-HC is in EMR, which designates Lon. RENEA contacted Esa at [facility] and confirmed he resides there for long-term care. RENEA faxed updates to [facility]. *Discharge plan: [facility]*
--- NOTE | 2022-01-28 02:22 | NUR ---
BEGINNING OF SHIFT NOTE: PATIENT RESTING QUIETLY IN BED. PATIENT UP TO THE BATHROOM WITH ASSISTANCE AND HAD A BOWEL MOVEMENT. PATIENT DENIED PAIN AND HAD NO COMPLAINTS AND DENIED NEEDFS.
[2022-01-28 04:49] VITALS: BP 131/77; PULSE 62; TEMP 98.2
--- NOTE | 2022-01-28 06:19 | NUR ---
END OF SHIFT. PATIENT RESTED QUIETLY WITH EYES CLOSED ALL NIGHT. PATIENT HAD NO COMPLAINTS OF PAIN AND RECEIVED NO PRNS. PATIENT THIS AM NOTED TO HAVE BLOODY URINE IN TURNER BAG WITH AMBREEN SMALL CLOTS IN TUBING.
[2022-01-28 06:51] LABS: BASO # 0.1 K/mm3 (0.0-0.2); EOS # 0.1 K/mm3 (0.0-0.7); EOS % 1.2 % (0.0-4.0); GRAN # 3.6 K/mm3 (1.4-6.5); GRAN % 71.8 % (42.2-75.2); LYMPH # 0.7 K/mm3 (1.2-3.4); LYMPH % 14.5 % (20.0-51.0); MEAN CELL VOLUME 86 fl (80.0-100.0); MEAN CORPUSCULAR HGB CONC 31 g/dl (33.0-37.0); MEAN PLATELET VOLUME 10.2 fl (7.4-10.4); MONO # 0.6 K/mm3 (0.1-0.6); MONO % 10.9 % (1.7-9.3); PLATELET COUNT 151 K/mm3 (130-400); RED BLOOD COUNT 3.37 M/mm3 (4.20-5.60); REDCELL DISTRIBUTION WIDTH-CV 23.3 % (11.5-14.5)
[2022-01-28 06:54] LABS: HEMATOCRIT 28.8 % (42.0-52.0); HEMOGLOBIN 8.8 g/dl (13.5-18.0); MEAN CORPUSCULAR HEMOGLOBIN 26 pg (27-31)
[2022-01-28 07:09] LABS: CALCIUM 8.5 mg/dL (8.4-10.2); CREATININE, serum 2.12 mg/dL (0.72-1.25); POTASSIUM 4.7 mmol/L (3.5-4.5)
[2022-01-28 08:01] VITALS: BP 115/66; PULSE 65; TEMP 98
--- NOTE | 2022-01-28 11:04 | NUR ---
PT SITTING UP IN BED, HAD ONE EPISODE OF EMESIS FOLLOWING BREAKFAST THIS AM. MORNING MEDICATIONS GIVEN. SHIFT ASSESSMENT COMPLETED. PT DENIES ANY PAIN OR NEEDS. IVF INFUSING. PACEMAKER INSERTION SITE C/D/I. WILL CONTINUE TO MONITOR.
[2022-01-28 11:47] VITALS: BP 103/70; PULSE 65; TEMP 97.4
[2022-01-28 13:14] LABS: CALCIUM 8.7 mg/dL (8.4-10.2); CREATININE, serum 2.03 mg/dL (0.72-1.25); POTASSIUM 5.1 mmol/L (3.5-4.5)
[2022-01-28 16:01] VITALS: BP 142/85; PULSE 65; TEMP 98.2
[2022-01-28 21:00] VITALS: BP 136/79; PULSE 66; TEMP 98.4
[2022-01-28 23:08] VITALS: BP 128/81; PULSE 66; TEMP 97.9
[2022-01-29 03:52] VITALS: BP 125/72; PULSE 67; TEMP 97.8
[2022-01-29 06:56] LABS: BASO % 0.8 % (0.0-2.0); EOS # 0.1 K/mm3 (0.0-0.7); EOS % 1.7 % (0.0-4.0); GRAN # 3.7 K/mm3 (1.4-6.5); GRAN % 72.3 % (42.2-75.2); LYMPH # 0.7 K/mm3 (1.2-3.4); LYMPH % 14.1 % (20.0-51.0); MEAN CELL VOLUME 85 fl (80.0-100.0); MEAN CORPUSCULAR HGB CONC 30 g/dl (33.0-37.0); MEAN PLATELET VOLUME 10.8 fl (7.4-10.4); MONO # 0.5 K/mm3 (0.1-0.6); MONO % 10.3 % (1.7-9.3); PLATELET COUNT 178 K/mm3 (130-400); RED BLOOD COUNT 3.36 M/mm3 (4.20-5.60); REDCELL DISTRIBUTION WIDTH-CV 23.3 % (11.5-14.5)
[2022-01-29 06:59] LABS: HEMATOCRIT 28.7 % (42.0-52.0); HEMOGLOBIN 8.7 g/dl (13.5-18.0); MEAN CORPUSCULAR HEMOGLOBIN 26 pg (27-31)
[2022-01-29 07:11] LABS: CALCIUM 8.8 mg/dL (8.4-10.2); CREATININE, serum 1.78 mg/dL (0.72-1.25); POTASSIUM 4.9 mmol/L (3.5-4.5)
--- NOTE | 2022-01-29 08:00 | NUR ---
Patient resting in bed, easiliy awakened with verbal command. A&Ox4. VSS. IV CDI, fluids infusing. De intact. Denies pain and discomfort. Call light within reach
[2022-01-29 08:15] VITALS: BP 150/82; PULSE 65; TEMP 98.1
--- NOTE | 2022-01-29 12:02 | NUR ---
SW faxed updates to [facility].
[2022-01-29 12:28] VITALS: BP 131/87; PULSE 63; TEMP 98.1
--- NOTE | 2022-01-29 14:56 | NUR ---
RENEA staffed with the hospitalist. The patient may be able to discharge tomorrow. RENEA notified Esa at [facility]. RENEA contacted and updated the patient's brother, Lon. Lon is in agreement and confirms plan is for the patient to return back to [facility]. RENEA read the IM form outloud to Lon over the phone. Lon gave RENEA approval to sign the form on his behalf. *Discharge plan: [facility]*
[2022-01-29 16:00] VITALS: BP 125/76; PULSE 66; TEMP 98.1
--- NOTE | 2022-01-29 17:53 | NUR ---
Patient had anuneventful day. Spent most of shift in the recliner. A&Ox3. VSS. IV CDI. Denies pain and discomfort. Hematuria urine, garcia intact. Call light within reach
--- NOTE | 2022-01-29 19:39 | NUR ---
TX GIVEN VIA MASK, TOLERATED WELL.
[2022-01-29 20:25] VITALS: BP 121/75; PULSE 66; TEMP 97.7
[2022-01-30 00:08] VITALS: BP 133/78; PULSE 66; TEMP 98.1
[2022-01-30 04:45] VITALS: BP 132/80; PULSE 64; TEMP 97.6
[2022-01-30 08:00] VITALS: BP 137/76; PULSE 59; TEMP 98.4
--- NOTE | 2022-01-30 08:00 | NUR ---
Patient sitting up on bed eating breakfast. A&Ox4. VSS. IV CDI, fluids infusing. Denies pain and discomfort. Independent with feeds. Call light within reach
--- NOTE | 2022-01-30 09:57 | NUR ---
Car Cooper received telephone contact from Litzy at [facility], inquiring about patient status and whether he is able to return to their facility today. Car Cooper to follow up with RN for inquiry.
--- NOTE | 2022-01-30 10:06 | NUR ---
Reading Professor updates Chantel ALBERT. *Discharge plan: Return to [facility] when patient is medically stable*
[2022-01-30 10:46] LABS: MEAN CELL VOLUME 83 fl (80.0-100.0); MEAN CORPUSCULAR HGB CONC 32 g/dl (33.0-37.0); MEAN PLATELET VOLUME 9.8 fl (7.4-10.4); PLATELET COUNT 159 K/mm3 (130-400); RED BLOOD COUNT 3.16 M/mm3 (4.20-5.60); REDCELL DISTRIBUTION WIDTH-CV 22.5 % (11.5-14.5)
[2022-01-30 10:47] LABS: HEMATOCRIT 26.3 % (42.0-52.0); HEMOGLOBIN 8.3 g/dl (13.5-18.0); MEAN CORPUSCULAR HEMOGLOBIN 26 pg (27-31)
[2022-01-30 11:03] LABS: CALCIUM 8.8 mg/dL (8.4-10.2); CREATININE, serum 1.54 mg/dL (0.72-1.25); POTASSIUM 4.8 mmol/L (3.5-4.5)
[2022-01-30 12:00] VITALS: BP 144/87; PULSE 59
[2022-01-30 16:00] VITALS: BP 148/84; PULSE 61
--- NOTE | 2022-01-30 17:26 | NUR ---
Patient had an uneventful day. A&Ox4. VSS. IV CDI, fluids infusing. Denies pain and discomfort. De intact, yellow clear urine. No further needs expressed. Call light within reach
--- NOTE | 2022-01-30 20:16 | NUR ---
TX GIVEN VIA MASK, TOLERATED WELL. PT ON ROOM AIR BEFORE AND AFTER TX.
[2022-01-30 20:22] VITALS: BP 142/86; PULSE 58; TEMP 98.2
[2022-01-31 00:24] VITALS: BP 126/77; PULSE 61; TEMP 98
--- NOTE | 2022-01-31 02:21 | NUR ---
Pt alert and oriented. Follows commands. De catheter in place. Adequate urine output. Urine color is su. Denies pain at this time. VS stable. On room air. IV fluids continuing per orders. Tolerating PO. [place] thick liquids provided. Fall precautions in place. stringing machine operator on. Shift assessment performed. Medications administered per orders and education provided. No significant skin issues noted. Pt does not report any questions at this time. Bed low and locked, call lilly within reach. No new concerns at this time.
[2022-01-31 04:30] VITALS: BP 147/83; PULSE 61; TEMP 97.9
--- NOTE | 2022-01-31 07:34 | NUR ---
PT SLEEPING DURING THE BESIDE REPORT
[2022-01-31 07:41] LABS: BASO # 0.1 K/mm3 (0.0-0.2); BASO % 1.2 % (0.0-2.0); EOS # 0.2 K/mm3 (0.0-0.7); EOS % 4.2 % (0.0-4.0); GRAN # 3.9 K/mm3 (1.4-6.5); GRAN % 68.1 % (42.2-75.2); LYMPH # 0.8 K/mm3 (1.2-3.4); LYMPH % 14.2 % (20.0-51.0); MEAN CELL VOLUME 85 fl (80.0-100.0); MEAN CORPUSCULAR HGB CONC 31 g/dl (33.0-37.0); MEAN PLATELET VOLUME 10.1 fl (7.4-10.4); MONO # 0.7 K/mm3 (0.1-0.6); MONO % 11.6 % (1.7-9.3); PLATELET COUNT 172 K/mm3 (130-400); RED BLOOD COUNT 3.18 M/mm3 (4.20-5.60); REDCELL DISTRIBUTION WIDTH-CV 22.5 % (11.5-14.5)
[2022-01-31 07:43] LABS: HEMOGLOBIN 8.3 g/dl (13.5-18.0); MEAN CORPUSCULAR HEMOGLOBIN 26 pg (27-31)
[2022-01-31 07:55] LABS: CALCIUM 8.9 mg/dL (8.4-10.2); CREATININE, serum 1.47 mg/dL (0.72-1.25); POTASSIUM 4.6 mmol/L (3.5-4.5)
[2022-01-31 08:00] VITALS: BP 155/88; PULSE 61; TEMP 98.3
[2022-01-31 12:00] VITALS: BP 157/90; PULSE 54; TEMP 98
--- NOTE | 2022-01-31 12:20 | NUR ---
PT vss, orient and alert x4, due prescribed medication given, no adverse reaction noted. pt is denies complaints of pain. dressing dry and intact no evidence of swelling around the site.pt is discharged from the unit and will be going to [facility].TELE removed, garcia catheter removed after consulting urologist.
--- NOTE | 2022-01-31 12:29 | NUR ---
RENEA informed that patient would be returning to [facility]. RENEA called agency staff and faxed DC documenation to facility. Facility staff provided transporation would set up at 2pm on this day. Nothing further.
--- NOTE | 2022-01-31 15:02 | NUR ---
pt escorted [facility], ambulatory with a w/chair, d/c to [facility], [email or web address].pt accompanied by [facility] staff.
--- NOTE | 2022-01-31 16:54 | NUR ---
PT REPORT CALLED INTO [facility] AND HANDED OVER TO BETY Jordan.
== END 2022-01-31 14:30 | DRG 988 ==
LOC: COL.CAR 10:04 → MEDICAL 15:27 → COL.CAR 18:00 → MEDICAL 21:00
PROVIDERS: Internal Medicine; Internal Medicine Cardiovascular Disease; Physician Assistant; Student in an Organized Health Care Education/Training Program; ADMIT Internal Medicine
PROC: 0JPT0PZ Removal of Cardiac Rhythm Related Device from Trunk Subcutaneous Tissue and Fascia, Open Approach (ICD-10-PCS; principal; 2022-01-26)
PROC: 0JH606Z Insertion of Pacemaker, Dual Chamber into Chest Subcutaneous Tissue and Fascia, Open Approach (ICD-10-PCS; 2022-01-26)
DX: N17.9 Acute kidney failure, unspecified (principal); E87.2 Acidosis; I13.0 Hypertensive heart and chronic kidney disease with heart failure and stage 1 through stage 4 chronic kidney disease, or unspecified chronic kidney disease; F03.90 Unspecified dementia, unspecified severity, without behavioral disturbance, psychotic disturbance, mood disturbance, and anxiety; K21.9 Gastro-esophageal reflux disease without esophagitis; E66.9 Obesity, unspecified; D64.9 Anemia, unspecified; G47.33 Obstructive sleep apnea (adult) (pediatric); E78.5 Hyperlipidemia, unspecified; I25.10 Atherosclerotic heart disease of native coronary artery without angina pectoris; I27.20 Pulmonary hypertension, unspecified; I08.2 Rheumatic disorders of both aortic and tricuspid valves; E11.22 Type 2 diabetes mellitus with diabetic chronic kidney disease; I48.91 Unspecified atrial fibrillation; N18.30 Chronic kidney disease, stage 3 unspecified; R31.0 Gross hematuria; N25.89 Other disorders resulting from impaired renal tubular function; E87.5 Hyperkalemia; R91.1 Solitary pulmonary nodule; J44.9 Chronic obstructive pulmonary disease, unspecified; I50.9 Heart failure, unspecified; T50.1X5A Adverse effect of loop [high-ceiling] diuretics, initial encounter; Y92.89 Other specified places as the place of occurrence of the external cause; Z95.0 Presence of cardiac pacemaker; Z79.84 Long term (current) use of oral hypoglycemic drugs; Z88.6 Allergy status to analgesic agent; Z68.27 Body mass index [BMI] 27.0-27.9, adult; Z23 Encounter for immunization
CPT/HCPCS: C1785; J0690; J1644; J1815; J2250; J3010; J7030; J7070; J7120

== ENCOUNTER → 2022-02-19 | Outpatient (CLI) | payer MEDICARE, MEDICAID ==
[~2022-02-19] MED LIST changes: +B-12 500 MCG PO
[2022-02-19 13:29] LABS: ALBUMIN 3.4 gm/dL (3.4-4.8); CALCIUM 8.1 mg/dL (8.4-10.2); CREATININE, serum 1.81 mg/dL (0.72-1.25); PHOSPHOROUS 3.1 mg/dL (2.3-4.7); POTASSIUM 5.1 mmol/L (3.5-4.5)
== END ==
LOC: ZLAB.STJ 12:51
PROVIDERS: Internal Medicine Nephrology
DX: N17.8 Other acute kidney failure (principal)

== ENCOUNTER → 2022-03-01 | Outpatient (CLI) | payer MEDICARE, MEDICAID ==
[2022-03-01 14:11] LABS: CALCIUM 8.7 mg/dL (8.4-10.2); CREATININE, serum 1.51 mg/dL (0.72-1.25); POTASSIUM 4.7 mmol/L (3.5-4.5)
== END ==
LOC: ZCOL.LAB 13:49
PROVIDERS: Internal Medicine
DX: I10 Essential (primary) hypertension (principal)

== ENCOUNTER → 2022-03-09 | Outpatient (CLI) | payer MEDICARE, MEDICAID ==
[2022-03-09 16:17] LABS: CALCIUM 8.7 mg/dL (8.4-10.2); CREATININE, serum 1.69 mg/dL (0.72-1.25); POTASSIUM 4.3 mmol/L (3.5-4.5)
== END ==
LOC: ZLAB.STJ 15:47
PROVIDERS: Internal Medicine
DX: I10 Essential (primary) hypertension (principal)

== ENCOUNTER 2022-09-05 21:07 | Inpatient (IN) | payer MEDICARE, MEDICAID ==
[~2022-09-05] VITALS: Ht 185.4 cm; Wt 97.2 kg
[~2022-09-05 21:07] MED LIST changes: +COLESTID 1GM1 G PO; +DECADRON6 MG PO; +DEMADEX 20MG20 M1 PO; +DOXYCYCLINE 10100 MG PO; +JANUVIA50 MG PO
[2022-09-05 21:29] LABS: BASO # 0.1 K/mm3 (0.0-0.2); BASO % 1.6 % (0.0-2.0); EOS # 0.2 K/mm3 (0.0-0.7); EOS % 2.6 % (0.0-4.0); GRAN # 5.5 K/mm3 (1.4-6.5); GRAN % 66.2 % (42.2-75.2); HEMOGLOBIN 10.7 g/dl (13.5-18.0); LYMPH # 1.5 K/mm3 (1.2-3.4); LYMPH % 17.8 % (20.0-51.0); MEAN CELL VOLUME 92 fl (80.0-100.0); MEAN CORPUSCULAR HEMOGLOBIN 29 pg (27-31); MEAN CORPUSCULAR HGB CONC 32 g/dl (33.0-37.0); MEAN PLATELET VOLUME 10.6 fl (7.4-10.4); MONO # 0.9 K/mm3 (0.1-0.6); MONO % 10.6 % (1.7-9.3); PLATELET COUNT 172 K/mm3 (130-400); REDCELL DISTRIBUTION WIDTH-CV 15.3 % (11.5-14.5)
[2022-09-05 21:30] LABS: HEMATOCRIT 33.9 % (42.0-52.0)
[2022-09-05 21:45] LABS: COLLECTION METHOD CLEAN CATCH
[2022-09-05 21:47] LABS: ALANINE AMINOTRANSFERASE 18 U/L (0-55); ALBUMIN 3.8 gm/dL (3.4-4.8); ALKALINE PHOSPHATASE 79 U/L (40-150); ANION GAP 9 mmol/L (7-16); AST,SGOT 20 U/L (5-34); BILIRUBIN,TOTAL 0.4 mg/dL (0.2-1.2); BLOOD UREA NITROGEN 36 mg/dL (8-26); CALCIUM 9.4 mg/dL (8.4-10.2); CARBON DIOXIDE 22 mmol/L (23-31); CHLORIDE 110 mmol/L (98-107); GLUCOSE 162 mg/dL (70-99); POTASSIUM 4.8 mmol/L (3.5-4.5); SODIUM 141 mmol/L (136-145); TOTAL PROTEIN 7.1 gm/dL (6.2-8.1)
[2022-09-05 21:49] LABS: ALCOHOL(ethanol),MEDICAL < 10 mg/dL (0-10)
[2022-09-05 21:57] LABS: PH 5.5 (5.0-8.5); URINE APPEARANCE Clear (CLEAR/HAZY); URINE COLOR Yellow (YELLOW); URINE GLUCOSE Negative (NEGATIVE); URINE KETONE Negative (NEGATIVE); URINE NITRATE Negative (NEGATIVE); URINE PROTEIN(semi-quant) Negative (NEGATIVE); URINE UROBILINOGEN 0.2 E.U/dL (0.2-1.0)
[2022-09-05 21:58] LABS: URINE BLOOD Negative (NEGATIVE)
[2022-09-05 21:59] LABS: TRICYCLIC ANTIDEPRESS URINE NEGATIVE
[2022-09-05 22:01] LABS: TROPONIN-I < 0.010 ng/mL (0.00-0.033)
[2022-09-05 22:03] LABS: MUCOUS Present (NOT PRESENT); SQUAMOUS EPITHELIAL 0-2 /hpf (0-10); URINE BACTERIA None Seen /hpf (NONE SEEN); URINE RBC 0-2 /hpf (0-2)
[2022-09-06] VITALS (12 sets, daily range): BP systolic 103–126; BP diastolic 66–88; PULSE 63–87; TEMP 97.9–99.3
--- NOTE | 2022-09-06 00:01 | NUR ---
pt admitted to room 356 from ED per cart, alert and oriented x4, on RA. transferred to bed with max assist of 3, pt able to stand pivot for transfers to wheelchair or bsc, does not ambulate. IV present in RAC, patent/secure. no c/o pain or discomfort at this time, Janice Becerra APRN in room to see pt.
[2022-09-06] MEDS ORDERED: VOLTAREN GEL 1%1 TU (00:02)
[2022-09-06] MEDS ORDERED: TRADJENTA5 MG PO (00:02)
[2022-09-06 03:42] LABS: BASO # 0.1 K/mm3 (0.0-0.2); BASO % 1.8 % (0.0-2.0); EOS # 0.2 K/mm3 (0.0-0.7); EOS % 3.1 % (0.0-4.0); GRAN # 4.6 K/mm3 (1.4-6.5); GRAN % 64.7 % (42.2-75.2); HEMATOCRIT 32.9 % (42.0-52.0); HEMOGLOBIN 10.3 g/dl (13.5-18.0); LYMPH # 1.4 K/mm3 (1.2-3.4); LYMPH % 19.9 % (20.0-51.0); MEAN CELL VOLUME 92 fl (80.0-100.0); MEAN CORPUSCULAR HEMOGLOBIN 29 pg (27-31); MEAN CORPUSCULAR HGB CONC 31 g/dl (33.0-37.0); MEAN PLATELET VOLUME 10.2 fl (7.4-10.4); MONO # 0.7 K/mm3 (0.1-0.6); MONO % 9.4 % (1.7-9.3); PLATELET COUNT 168 K/mm3 (130-400); RED BLOOD COUNT 3.59 M/mm3 (4.20-5.60); REDCELL DISTRIBUTION WIDTH-CV 15.2 % (11.5-14.5)
[2022-09-06 03:49] LABS: INR 1.1 (0.8-3.0); PROTHROMBIN TIME 13.1 SECONDS (9.7-12.8)
[2022-09-06 03:51] LABS: PARTIAL THROMBOPLASTIN TIME 32.6 SECONDS (26.0-37.0)
[2022-09-06 03:59] LABS: CALCIUM 8.7 mg/dL (8.4-10.2); CHOLESTEROL RISK RATIO 2.7; CREATININE, serum 1.53 mg/dL (0.72-1.25); POTASSIUM 4.8 mmol/L (3.5-4.5)
--- NOTE | 2022-09-06 06:37 | NUR ---
pt on RA, has slept most of the time since arrival, no shaking episodes or chest pain reported. incontinent of large amt of urine this am, linens changed, urinal @ bedside, pt still drowsy from ativan given in ED. IVF infusing per piv @ 30cc/hr, NPO @ this time. BGM q6 hr, no SSI required this am.
--- NOTE | 2022-09-06 07:30 | NUR ---
DR SHIN PAGED REGARDING CONSULT, NO REPLY YET
--- NOTE | 2022-09-06 07:30 | NUR ---
DR MUJICA NOTIFIED OF CONSULT
--- NOTE | 2022-09-06 08:30 | NUR ---
PT SITTING UP IN BED UPON ENTERING ROOM. MORNING MEDICATIONS GIVEN. IVF INFUSING. SHIFT ASSESSMENT COMPLETED. PT COMPLAINS OF CHEST PAIN 10/04. DENIES ANY SOB. CALL LIGHT WITHIN REACH. CARDIOLOGY CONSULTED PER ORDERS. PT REMAINS NPO AT THIS TIME. WILL CONTINUE TO MONITOR.
--- NOTE | 2022-09-06 14:17 | NUR ---
Patient resides at [facility]. Attempt made to contact the patients brother/DPOA-HC Lon and was unsuccessful. Phone call made to the patients sister to complete intake. Patient has a history of dementia. Per family, patient is somewhat independent with his ADL's but has to recieve most cares from the [facility] staff. Patient is wheelchair bound at baseline. PCP is and the [facility] manages his medications. Patient does have a DPOA-HC established listing his brother, however per patients sister, Lon's phone is turned off due to money issues, so any communication will need to go through the patients sister. Clinical updates faxed to [facility]. Discharge plan: [facility]
[2022-09-06 16:38] LABS: PARTIAL THROMBOPLASTIN TIME 32.3 SECONDS (26.0-37.0)
[2022-09-07] VITALS (15 sets, daily range): BP systolic 18–129; BP diastolic 64–86; PULSE 68–79; TEMP 98.5–99.7
[2022-09-07 06:33] LABS: HEMATOCRIT 35.3 % (42.0-52.0); HEMOGLOBIN 11.3 g/dl (13.5-18.0); MEAN CELL VOLUME 91 fl (80.0-100.0); MEAN CORPUSCULAR HEMOGLOBIN 29 pg (27-31); MEAN CORPUSCULAR HGB CONC 32 g/dl (33.0-37.0); MEAN PLATELET VOLUME 10.6 fl (7.4-10.4); PLATELET COUNT 164 K/mm3 (130-400); RED BLOOD COUNT 3.88 M/mm3 (4.20-5.60); REDCELL DISTRIBUTION WIDTH-CV 15.3 % (11.5-14.5)
[2022-09-07 06:50] LABS: ANION GAP 9 mmol/L (7-16); BLOOD UREA NITROGEN 32 mg/dL (8-26); CALCIUM 9.5 mg/dL (8.4-10.2); CARBON DIOXIDE 24 mmol/L (23-31); CHLORIDE 109 mmol/L (98-107); CREATININE, serum 1.46 mg/dL (0.72-1.25); GLUCOSE 147 mg/dL (70-99); POTASSIUM 4.4 mmol/L (3.5-4.5); SODIUM 142 mmol/L (136-145)
[2022-09-07 06:53] LABS: INR 1.1 (0.8-3.0); PROTHROMBIN TIME 13.1 SECONDS (9.7-12.8)
[2022-09-07 07:02] LABS: TROPONIN-I < 0.010 ng/mL (0.00-0.033)
--- NOTE | 2022-09-07 08:00 | NUR ---
Shift assessment is done. All of his morning meds are held due to NPO status for heart catherization procedure except metropolol and heparin drip. Consent is signed for the procedure. Patient denies any pain at this time. Call lights is in place. Will continue to monitor.
--- NOTE | 2022-09-07 08:30 | NUR ---
PT RESTING IN BED UPON ENTERING ROOM. MOST MORNING MEDICATIONS HELD DUE TO NPO STATUS FOR HEART CATH PROCEDURE. PT DENIES CHEST PAIN. IVF AND HEPARIN GTT INFUSING. CONSENT SIGNED AND PLACED ON THE CHART. CALL LIGHT WITHIN REACH, BED ALARMS IN PLACE. WILL CONTINUE TO MONITOR.
--- NOTE | 2022-09-07 11:27 | NUR ---
Assessment completed prior tothe procedure, documented after. See merge for all medication, assessment, intervention, and vital sign times.
--- NOTE | 2022-09-07 11:45 | NUR ---
PT RETURNED TO UNIT POST HEART CATHETERIZATION. R RADIAL SITE C/D/I WITH TR BAND IN PLACE, INFLATED 13CC. VSS. WILL CONTINUE TO MONITOR.
--- NOTE | 2022-09-07 13:45 | NUR ---
ATTEMPTED TO RELEASE 4CC OF AIR FROM TR BAND, SITE STARTED BLEEDING, REPLACED 4CC OF AIR. WILL ATTEMPT AGAIN LATER.
--- NOTE | 2022-09-07 22:17 | NUR ---
Patient assessed around 1999. Alert and oriented, and able to make needs known. Denies having pain and discomfort. Peripheral INT to right AC. Bandaid to right radial heart cath site CDI. Site without hematoma. Voices no questions, needs, or concerns at this time. In bed with call light within reach. High fall risk precautions in place. Bed alarm on.
[2022-09-08 03:41] VITALS: BP 113/68; PULSE 80; TEMP 98.6
--- NOTE | 2022-09-08 05:33 | NUR ---
Denies having pain and discomfort. Voices no questions, needs, or concerns at this time. In bed with call light within reach. High fall risk precautions in place. Bed alarm on.
[2022-09-08 06:23] LABS: BASO # 0.1 K/mm3 (0.0-0.2); BASO % 0.7 % (0.0-2.0); EOS # 0.1 K/mm3 (0.0-0.7); EOS % 1.2 % (0.0-4.0); GRAN # 6.1 K/mm3 (1.4-6.5); GRAN % 72.2 % (42.2-75.2); HEMATOCRIT 34.1 % (42.0-52.0); HEMOGLOBIN 10.8 g/dl (13.5-18.0); LYMPH % 12.1 % (20.0-51.0); MEAN CELL VOLUME 91 fl (80.0-100.0); MEAN CORPUSCULAR HEMOGLOBIN 29 pg (27-31); MEAN CORPUSCULAR HGB CONC 32 g/dl (33.0-37.0); MEAN PLATELET VOLUME 10.7 fl (7.4-10.4); MONO # 1.1 K/mm3 (0.1-0.6); MONO % 13.1 % (1.7-9.3); PLATELET COUNT 161 K/mm3 (130-400); RED BLOOD COUNT 3.74 M/mm3 (4.20-5.60); REDCELL DISTRIBUTION WIDTH-CV 15.2 % (11.5-14.5)
[2022-09-08 06:47] LABS: CALCIUM 9.6 mg/dL (8.4-10.2); CREATININE, serum 1.37 mg/dL (0.72-1.25); POTASSIUM 4.3 mmol/L (3.5-4.5)
[2022-09-08 07:35] VITALS: BP 131/82; PULSE 72; TEMP 97.9
[2022-09-08] MEDS ORDERED: KEPPRA 500MG500 MG PO (09:14)
--- NOTE | 2022-09-08 09:34 | NUR ---
The patient is to discharge today, 09/08, back to [facility] for long-term care. Transportation was scheduled around [phone], via [facility]. SW notified the RN of the time. SW attempted to update the patient's brother, Lon. His phone was busy and SW was unable to leave a message. SW attempted to update the patient's sister, Maricarmen. SW left her a voicemail. No additional needs at this time.
[2022-09-08 12:02] VITALS: BP 126/72; PULSE 75; TEMP 98
--- NOTE | 2022-09-08 13:59 | NUR ---
Patient discharged to [facility]. Transport here to pick patient up. Discharge packet provided. INT to right AC DCd cath intact. Patient does not have any belongings or clothes. Pushed off zuñiga in wheelchair by transport staff in stable condition.
== END 2022-09-08 13:50 | DRG 287 ==
LOC: COL.ER 21:07 → MEDICAL 23:20
PROVIDERS: Emergency Medicine; Nurse Practitioner Family; Physician Assistant; ADMIT Internal Medicine
PROC: 4A023N7 Measurement of Cardiac Sampling and Pressure, Left Heart, Percutaneous Approach (ICD-10-PCS; principal; 2022-09-07)
PROC: B2111ZZ Fluoroscopy of Multiple Coronary Arteries using Low Osmolar Contrast (ICD-10-PCS; 2022-09-07)
DX: R07.9 Chest pain, unspecified (principal); I12.9 Hypertensive chronic kidney disease with stage 1 through stage 4 chronic kidney disease, or unspecified chronic kidney disease; E11.22 Type 2 diabetes mellitus with diabetic chronic kidney disease; E11.42 Type 2 diabetes mellitus with diabetic polyneuropathy; N18.9 Chronic kidney disease, unspecified; D50.9 Iron deficiency anemia, unspecified; J44.9 Chronic obstructive pulmonary disease, unspecified; G47.33 Obstructive sleep apnea (adult) (pediatric); I27.20 Pulmonary hypertension, unspecified; K21.9 Gastro-esophageal reflux disease without esophagitis; G72.9 Myopathy, unspecified; I07.1 Rheumatic tricuspid insufficiency; F03.90 Unspecified dementia, unspecified severity, without behavioral disturbance, psychotic disturbance, mood disturbance, and anxiety; I48.0 Paroxysmal atrial fibrillation; G25.2 Other specified forms of tremor; E78.5 Hyperlipidemia, unspecified; I87.8 Other specified disorders of veins; Z20.822 Contact with and (suspected) exposure to COVID-19; E66.9 Obesity, unspecified; Z68.30 Body mass index [BMI] 30.0-30.9, adult; Z95.0 Presence of cardiac pacemaker; Z95.2 Presence of prosthetic heart valve; Z88.6 Allergy status to analgesic agent
CPT/HCPCS: A9500; C1769; C1887; G0378; J1644; J2060; J2250; J2785; J3010; J7030

== ENCOUNTER 2023-11-01 10:06 | Day surgery (SDC) | payer MEDICARE, MEDICAID ==
[~2023-11-01] VITALS: Ht 185.4 cm; Wt 102.2 kg
[2023-11-01] VITALS (7 sets, daily range): BP systolic 92–114; BP diastolic 74–81; PULSE 68–74; TEMP 97.7; O2SAT 92
[~2023-11-01 10:06] MED LIST changes: +ALBUTEROL0.83 MG/ML IH; +KEPPRA 500MG500 MG PO; +LEVAQUIN 5500 MG/TA1 PO; +MAG-OX 400400 MG/TAB PO; +NATURAL E400 IU PO; +NS 1,000 ML IV SCH; +TRADJENTA5 MG PO; +VOLTAREN GEL 1%1 TU TP
[2023-11-01] MEDS ORDERED: 1/2 NS 1,000 ML IV SCH (10:30)
[2023-11-01] MEDS ORDERED: NS Flush 10 ML SYRINGE PRN ICA (10:30)
[2023-11-01 10:41] LABS: HEMATOCRIT 39.5 % (42.0-52.0); HEMOGLOBIN 12.9 g/dl (13.5-18.0); MEAN CELL VOLUME 88 fl (80.0-100.0); MEAN CORPUSCULAR HEMOGLOBIN 29 pg (27-31); MEAN CORPUSCULAR HGB CONC 33 g/dl (33.0-37.0); MEAN PLATELET VOLUME 10.1 fl (7.4-10.4); PLATELET COUNT 197 K/mm3 (130-400); RED BLOOD COUNT 4.51 M/mm3 (4.20-5.60); REDCELL DISTRIBUTION WIDTH-CV 13.3 % (11.5-14.5)
[2023-11-01 10:54] LABS: CALCIUM 9.9 mg/dL (8.4-10.2); CREATININE, serum 2.04 mg/dL (0.72-1.25); MAGNESIUM 2.3 mg/dL (1.6-2.6); POTASSIUM 3.1 mEq/L (3.5-4.5)
[2023-11-01 11:05] LABS: INR 1.7 (0.8-3.0); PROTHROMBIN TIME 18.7 SECONDS (9.7-12.8)
[2023-11-01 11:07] LABS: PARTIAL THROMBOPLASTIN TIME 36.5 SECONDS (26.0-37.0)
[2023-11-01] MEDS ORDERED: PROAIR RES117 MCG/Ac IH (11:09)
[2023-11-01 11:15] LABS: THYROID STIMULATING HORMONE 0.4 uIU/mL (0.350-4.940)
[2023-11-01] MEDS ORDERED: METHENMAND1 (11:20)
[2023-11-01] MEDS ORDERED: NAMENDA 10MG TA10 MG PO (11:21)
[2023-11-01] MEDS ORDERED: ZAROXOLYN 2.52.5 MG PO (11:21)
[2023-11-01] MEDS ORDERED: PACERONE400 MG PO (12:59)
--- NOTE | 2023-11-01 13:18 | NUR ---
PATIENT ALERT AND ORIENTED, VSS. DENIES PAIN, NON-PRODUCTIVE COUGH NOTED. BEDSIDE REPORT AND TRANSFER OF CARE TO BETY OLIVAREZ. BED IN LOWEST POSITION, CALL LIGHT WITHIN REACH, X3 BEDRAILS IN PLACE.
--- NOTE | 2023-11-01 15:39 | NUR ---
Pt was brought to [facility] by wheelchair. Pt was scheduled for a Cardioversion and MEERA. Consent for the procedure signed. EKG done. IV started, and labs done. Cardioversion and meera done. Post procedure the pt was offered something to eat and drink. Accepted a sprite and pudding. Pt recovered with us for about 2 hours. During that time the pt stated they were feeling good. At the end of their recovery with us the pt was given discharge education and information. No questions at that time. Pt's IV was dc'd and wrapped with coban. [facility] transport was called to let them know the pt was ready to be picked up. Helped the pt get dressed and transfered back into their wheelchair. Once transport arrived the pt exited the unit by wheelchair to the transport vehicle.
[2023-11-01] MEDS ORDERED: NS Flush 10 ML SYRINGE BID ICA SCH (21:00)
[2023-12-22] MEDS ORDERED: K-TAB10 PO (21:34)
== END 2023-11-01 15:26 | disposition home or self-care (01) ==
LOC: COL.CAR 10:06
PROVIDERS: Internal Medicine Cardiovascular Disease
DX: I48.91 Unspecified atrial fibrillation (principal); I10 Essential (primary) hypertension; G47.33 Obstructive sleep apnea (adult) (pediatric); E11.69 Type 2 diabetes mellitus with other specified complication; J96.11 Chronic respiratory failure with hypoxia; E83.51 Hypocalcemia; E66.9 Obesity, unspecified; Q23.1 Congenital insufficiency of aortic valve; F01.50 Vascular dementia, unspecified severity, without behavioral disturbance, psychotic disturbance, mood disturbance, and anxiety; E78.5 Hyperlipidemia, unspecified; Z99.81 Dependence on supplemental oxygen; Z79.899 Other long term (current) drug therapy; Z68.39 Body mass index [BMI] 39.0-39.9, adult; Z95.0 Presence of cardiac pacemaker; Z95.2 Presence of prosthetic heart valve; Z87.891 Personal history of nicotine dependence

== ENCOUNTER 2023-12-26 17:52 | Emergency (ER) | payer MEDICARE, MEDICAID ==
[~2023-12-26] VITALS: Ht 185.4 cm; Wt 100.0 kg
[~2023-12-26 17:52] MED LIST changes: +K-TAB10 PO; +METHENMAND1; +NAMENDA 10MG TA10 MG PO; -NS 1,000 ML IV SCH; +PACERONE400 MG PO; +PROAIR RES117 MCG/Ac IH; +ZAROXOLYN 2.52.5 MG PO
[2023-12-26 17:56] VITALS: TEMP 98.5
[2023-12-26 20:02] LABS: HEMOGLOBIN 10.5 g/dl (13.5-18.0); MEAN CELL VOLUME 90 fl (80.0-100.0); MEAN CORPUSCULAR HEMOGLOBIN 29 pg (27-31); MEAN CORPUSCULAR HGB CONC 32 g/dl (33.0-37.0); MEAN PLATELET VOLUME 10.8 fl (7.4-10.4); PLATELET COUNT 170 K/mm3 (130-400); RED BLOOD COUNT 3.66 M/mm3 (4.20-5.60); REDCELL DISTRIBUTION WIDTH-CV 14.2 % (11.5-14.5)
[2023-12-26 20:08] LABS: HEMATOCRIT 32.9 % (42.0-52.0)
[2023-12-26 20:14] LABS: ALBUMIN 3.7 g/dL (3.4-4.8); BILIRUBIN,TOTAL 0.4 mg/dL (0.2-1.2); CREATININE, serum 2.29 mg/dL (0.72-1.25); POTASSIUM 3.6 mEq/L (3.5-4.5); TOTAL PROTEIN 7.2 g/dl (6.2-8.1)
[2023-12-26 20:20] LABS: TROPONIN-I 0.013 ng/mL (0.00-0.033)
[2023-12-26 20:52] LABS: EOSINOPHIL 4 % (0-4); LYMPHOCYTE 14 % (20.0-51.0); NEUTROPHILS 73 % (42.0-75.2)
[2023-12-26 22:25] VITALS: BP 108/75; PULSE 70
== END 2023-12-26 22:25 | disposition home or self-care (01) ==
LOC: COL.ER 17:52
PROVIDERS: Personal Emergency Response Attendant
DX: R07.9 Chest pain, unspecified (principal)

== ENCOUNTER 2024-02-28 07:15 | Day surgery (SDC) | payer MEDICARE, MEDICAID ==
[~2024-02-28] VITALS: Ht 170.2 cm; Wt 101.3 kg
[~2024-02-28 07:15] MED LIST changes: +Ondansetron 4 MG/2 ML VIAL IV PRN
[2024-02-28] MEDS ORDERED: LR 1,000 ML IV ONE (08:00)
[2024-02-28] MEDS ORDERED: JARDIANCE25 PO (08:33)
[2024-02-28] MEDS ORDERED: DEMADEX10 MG PO (08:34)
[2024-02-28] MEDS ORDERED: INSULIN GLARGINE SQ (08:36)
[2024-02-28] MEDS ORDERED: ePHEDrine 50 MG/ML VIAL ONE (09:35)
[2024-02-28 10:00] VITALS: BP 110/75; PULSE 75
--- NOTE | 2024-02-28 10:00 | NUR ---
PATIENT ARRIVED TO [facility] [facility] VIA CART, ALERT AND AWAKE. DENIES PAIN, NAUSEA AND SHORTNESS OF BREATH. BREATHING REGULAR AND UNLABORED ON ROOM AIR. SKIN WARM AND DRY. IV IN PLACE. NURSE HANDOFF COMPLETED IN ROOM. SEE CHART FOR VITAL SIGNS. PATIENT HAD CRANBERRY JUICE AND CHOCOLATE PUDDING, NO DYSPHAGIA. CALL LIGHT IN REACH.
[2024-02-28 10:15] VITALS: BP 103/69; PULSE 72
[2024-02-28 10:30] VITALS: BP 102/68; PULSE 72
[2024-02-28 10:45] VITALS: BP 113/65; PULSE 73
[2024-02-28 11:05] VITALS: BP 105/67; PULSE 75
--- NOTE | 2024-02-28 11:15 | NUR ---
1040: PATIENT RESTING IN CART, STATES "I'M FEELING GREAT". PER , ELIQUIS WILL NEED TO BE HELD UNTIL FURTHER NOTICE FOR BLEEDING STOMACH POLYP. 1043: DISCHARGE TEACHING COMPLETED WITH PRINTED EDUCATION AND INSTRUCTIONS SENT WITH PATIENT. PATIENT VERBALIZED UNDERSTANDING. USING TEACH BACK, PATIENT VERBALIZED WHICH MED WAS BEING HELD (AND WHY) AND VOICED CORRECT SIGNS OF BLEEDING TO MONITOR FOR. 1051: NURSE HANDOFF COMPLETED VIA TELEPHONE TO JOSE Michael LPN AT [facility]. COMMUNICATED ORDER TO HOLD ELIQUIS UNTIL FURTHER NOTICE. 1058: MET WITH PATIENT IN ROOM. 1107: IV REMOVED. GAUZE AND COBAN PLACED OVER SITE. 1115: PATIENT DISCHARGED WITH PAMELA B ([facility]) TRANSPORT. PATIENT DEPARTED IN HIS PERSONAL WHEELCHAIR (TURNER CATHETER INTACT AND DRAINING FREELY) WITH PRINTED PHYSICIAN INSTRUCTIONS.
[2024-02-28 11:28] VITALS: BP 113/83; PULSE 84; TEMP 97.6
[2024-03-01] MEDS ORDERED: LANTUS100 U/ML SQ (17:00)
== END 2024-02-28 11:15 | disposition home or self-care (01) ==
LOC: SDCO 07:15
DX: K63.5 Polyp of colon (principal); K31.7 Polyp of stomach and duodenum; R19.5 Other fecal abnormalities; D50.9 Iron deficiency anemia, unspecified; K57.30 Diverticulosis of large intestine without perforation or abscess without bleeding; E66.9 Obesity, unspecified; Z79.01 Long term (current) use of anticoagulants; Z87.11 Personal history of peptic ulcer disease; Z90.3 Acquired absence of stomach [part of]; Z68.39 Body mass index [BMI] 39.0-39.9, adult
CPT/HCPCS: C1052; J2704; J7120

== ENCOUNTER 2024-03-02 07:36 | Observation (INO) | payer MEDICARE, MEDICAID ==
[2024-03-02] VITALS (12 sets, daily range): BP systolic 109–129; BP diastolic 78–89; PULSE 71–89; TEMP 97.6–97.9
[~2024-03-02] VITALS: Ht 180.3 cm; Wt 101.4 kg
[~2024-03-02 07:36] MED LIST changes: +DEMADEX10 MG PO; +INSULIN GLARGINE SQ; +JARDIANCE25 PO; +LANTUS100 U/ML SQ
[2024-03-02] MEDS ORDERED: LR 1,000 ML IV SCH (11:30)
--- NOTE | 2024-03-02 11:30 | NUR ---
The patient was brought back to [place] [facility] via wheelchair and transerred himself using a pivot transfer and appeared to tolerate the activity well. Vital signs obtained. Consent signed. 20G IV started in right hand with one stick, LR infusing without difficulty. Assessment completed. Home medications reconcilled. Warm blanket provided. Denies any further needs at this time.
[2024-03-02] MEDS ORDERED: Lidocaine PF 2% (20 MG/ML) 5 ML VIAL ONE ×2 (11:48→12:26)
[2024-03-02] MEDS ORDERED: fentaNYL 50 MCG/ML 2 ML VIAL ONE (11:49)
[2024-03-02] MEDS ORDERED: EPINEPHrine 1 MG/1 ML Ampule IJ ONE (12:15)
--- NOTE | 2024-03-02 13:45 | NUR ---
arrived on unit from endoscopy per cart, assisted over and into bed, rolled to side and cocyx is slightly red but blanches well and mepilex dressing placed, had foam dressing to left lower huizar, IV intact in RH,
--- NOTE | 2024-03-02 14:10 | NUR ---
Dr Call in and talking with patient, bedside shift report given to BETY Perdomo, reported to her regading his cocyx and dressing to left huizar
--- NOTE | 2024-03-02 14:40 | NUR ---
VOICE MAIL LEFT FOR CALL BACK [facility] FOR INFO ON PATIENT CODE STATUS. CALL BACK NUMNER LEFT
--- NOTE | 2024-03-02 14:41 | NUR ---
PER COMPUTER BLOOD WORK SHOWS NOT RECIEVED. LAB CALLED/ PER AIRPLANE MECHANIC BLOOD HAS BEEN RECIEVED.
[2024-03-02] MEDS ORDERED: Acetaminophen 325 MG TAB PO PRN (15:15)
[2024-03-02 15:25] LABS: HEMOGLOBIN 11.1 g/dl (13.5-18.0); MEAN CELL VOLUME 90 fl (80.0-100.0); MEAN CORPUSCULAR HEMOGLOBIN 28 pg (27-31); MEAN CORPUSCULAR HGB CONC 31 g/dl (33.0-37.0); MEAN PLATELET VOLUME 9.7 fl (7.4-10.4); PLATELET COUNT 181 K/mm3 (130-400); RED BLOOD COUNT 4.01 M/mm3 (4.20-5.60); REDCELL DISTRIBUTION WIDTH-CV 15.5 % (11.5-14.5)
[2024-03-02 15:26] LABS: HEMATOCRIT 35.9 % (42.0-52.0)
[2024-03-02 15:48] LABS: INR 1.2 (0.8-3.0); PROTHROMBIN TIME 13.6 SECONDS (9.7-12.8)
[2024-03-02] MEDS ORDERED: Insulin Lispro (HumaLOG) SQ SCH (16:00)
--- NOTE | 2024-03-02 17:39 | NUR ---
RA SPO2 88% PLACED ON PT 2 LPM NC SPO2 92% RN NOTIFIED
--- NOTE | 2024-03-02 18:14 | NUR ---
PER DR GARCIA PATIENT CAN HAVE CLEARS, SMALL VOLUME. WILL PASS ALONG
[2024-03-02] MEDS ORDERED: Formoterol 20 MCG,Budesonide 0.5 MG IH SCH (19:00)
[2024-03-02] MEDS ORDERED: Donepezil 5 MG TAB PO SCH (21:00)
[2024-03-02] MEDS ORDERED: Ferrous Sulfate 325 MG TAB PO SCH (21:00)
[2024-03-02] MEDS ORDERED: Memantine 10 MG TAB PO SCH (21:00)
[2024-03-02] MEDS ORDERED: Atorvastatin 20 MG TAB PO SCH (21:00)
[2024-03-02] MEDS ORDERED: Colestipol 1 G TAB PO SCH (21:00)
[2024-03-02] MEDS ORDERED: Albuterol 0.083% Neb Soln 2.5 MG/3 ML UD IH SCH (21:00)
[2024-03-02 21:42] LABS: HEMATOCRIT 35.4 % (42.0-52.0)
[2024-03-02] MEDS ORDERED: Melatonin 3 MG TAB PO SCH (21:57)
[2024-03-03] VITALS: BP 119/75; PULSE 71; TEMP 98.4
[2024-03-03 00:15] VITALS: BP_SYST 119
[2024-03-03 03:39] VITALS: BP 126/80; PULSE 69; TEMP 99.1
[2024-03-03 04:15] VITALS: BP_SYST 126
[2024-03-03 06:49] LABS: BASO # 0.1 K/mm3 (0.0-0.2); BASO % 1.8 % (0.0-2.0); EOS # 0.2 K/mm3 (0.0-0.7); EOS % 2.7 % (0.0-4.0); GRAN # 4.6 K/mm3 (1.4-6.5); GRAN % 74.1 % (42.2-75.2); HEMOGLOBIN 11.3 g/dl (13.5-18.0); LYMPH # 0.6 K/mm3 (1.2-3.4); LYMPH % 10.1 % (20.0-51.0); MEAN CELL VOLUME 89 fl (80.0-100.0); MEAN CORPUSCULAR HEMOGLOBIN 28 pg (27-31); MEAN CORPUSCULAR HGB CONC 31 g/dl (33.0-37.0); MEAN PLATELET VOLUME 10.3 fl (7.4-10.4); MONO # 0.6 K/mm3 (0.1-0.6); MONO % 10.3 % (1.7-9.3); PLATELET COUNT 198 K/mm3 (130-400); RED BLOOD COUNT 4.08 M/mm3 (4.20-5.60); REDCELL DISTRIBUTION WIDTH-CV 15.3 % (11.5-14.5)
[2024-03-03 07:03] LABS: HEMATOCRIT 36.3 % (42.0-52.0)
[2024-03-03 07:05] LABS: CALCIUM 8.8 mg/dL (8.4-10.2); CREATININE, serum 1.81 mg/dL (0.72-1.25); POTASSIUM 4.6 mEq/L (3.5-4.5)
[2024-03-03 07:32] VITALS: BP 127/81; PULSE 76; TEMP 98.5
[2024-03-03] MEDS ORDERED: Cyanocobalamin (Vit B-12) 1,000 MCG TAB PO SCH (09:00)
[2024-03-03] MEDS ORDERED: Escitalopram 10 MG TAB PO SCH (09:00)
[2024-03-03] MEDS ORDERED: Tiotropium 2.5 MCG Respimat MDI IH SCH (09:00)
[2024-03-03] MEDS ORDERED: Calcitriol 0.25 MCG CAP PO SCH (09:00)
[2024-03-03] MEDS ORDERED: Umeclidinium 62.5 MCG **** subs to Tiotropium 5 mcg IH SCH (09:00)
[2024-03-03] MEDS ORDERED: Amiodarone 200 MG TAB PO SCH (09:00)
--- NOTE | 2024-03-03 09:23 | NUR ---
RENEA met with patient to complete initial assessment for discharge planning. Patient is LTC resident at [facility], sees Dr. Valencia as his PCP and uses [facility]. Patient uses a wheelchair as his only DME. Patient lists his brother Lon Al as his DPOA ([phone]) and his sister Maricarmen Ayala ([phone]) as contact. RENEA notified by attending that patient is stable for return to [facility] today. RENEA notified Esa at [facility] of discharge. He states they can transport patient before 1000. BETY Perdomo notified of transport time. Discharge orders and clinicals sent via secure email to Esa. Patient notified of transportation time and is agreeable. Discharge plan: return to LTC at [facility]
--- NOTE | 2024-03-03 09:37 | NUR ---
REPORT GIVEN TO [facility] RN. CALL BACK NUMBER GIVEN IF FURTHER QUESTIONS ARRIVED. PATIENT CLEANED, DRESSED AND READY TO GO.
[2024-03-03 09:50] VITALS: BP_SYST 127
--- NOTE | 2024-03-03 09:50 | NUR ---
IV TO R HAND REMOVED. PATIENT PICKED UP VIA WHEELCHAIR BY [facility] EMPLOYEE. PATIENT LEFT THE MEDICAL UNIT AWAKE ALERT AND ORIENTED.
== END 2024-03-03 10:00 ==
LOC: SDCO 10:27 → MEDICAL 10:27 → SDCO 11:45 → EDSTATUS 11:45 → MEDICAL 14:32 → SDCO 14:32 → MEDICAL 03-03 10:00 → SDCO 03-03 10:00 → MEDICAL 03-03 10:00 → SDCO 03-09 11:45
PROVIDERS: Internal Medicine Gastroenterology; Physician Assistant; ADMIT Internal Medicine
DX: K31.7 Polyp of stomach and duodenum (principal); G47.33 Obstructive sleep apnea (adult) (pediatric); D50.0 Iron deficiency anemia secondary to blood loss (chronic); I48.91 Unspecified atrial fibrillation; I49.5 Sick sinus syndrome; K21.9 Gastro-esophageal reflux disease without esophagitis; Q23.1 Congenital insufficiency of aortic valve; G72.9 Myopathy, unspecified; I36.1 Nonrheumatic tricuspid (valve) insufficiency; I27.20 Pulmonary hypertension, unspecified; I12.9 Hypertensive chronic kidney disease with stage 1 through stage 4 chronic kidney disease, or unspecified chronic kidney disease; F32.A Depression, unspecified; J44.9 Chronic obstructive pulmonary disease, unspecified; E21.3 Hyperparathyroidism, unspecified; I10 Essential (primary) hypertension; E78.5 Hyperlipidemia, unspecified; E11.22 Type 2 diabetes mellitus with diabetic chronic kidney disease; F03.90 Unspecified dementia, unspecified severity, without behavioral disturbance, psychotic disturbance, mood disturbance, and anxiety; Z90.3 Acquired absence of stomach [part of]; Z95.0 Presence of cardiac pacemaker; Z79.899 Other long term (current) drug therapy; Z99.89 Dependence on other enabling machines and devices; Z79.01 Long term (current) use of anticoagulants
CPT/HCPCS: A9270; G0378; J0171; J2704; J3010; J7120

== ENCOUNTER 2024-04-02 10:18 | Emergency (ER) | payer MEDICARE, MEDICAID ==
[~2024-04-02] VITALS: Ht 185.4 cm; Wt 103.6 kg
[~2024-04-02 10:18] MED LIST changes: -Ondansetron 4 MG/2 ML VIAL IV PRN
[2024-04-02 10:27] VITALS: TEMP 98.5
[2024-04-02] MEDS ORDERED: BACTRIM DS 8001 TAB PO (10:56)
[2024-04-02 13:15] VITALS: BP 120/85; PULSE 79
== END 2024-04-02 14:07 | disposition home or self-care (01) ==
LOC: COL.ER 10:18
DX: M54.2 Cervicalgia (principal); Z79.01 Long term (current) use of anticoagulants; W05.0XXA Fall from non-moving wheelchair, initial encounter